=== PATIENT | female | born 1960 | race Caucasian/White ===

== ENCOUNTER 2020-05-11 09:33 | Outpatient (REF) | payer OTHER, SELFPAY ==
[2020-05-11 10:28] LABS: MANUAL DIFF FLAG NO
[2020-05-11 10:44] LABS: Basophils Percent Auto 0.2 % (0-2); Eosinophils Absolute Auto 0.1 X10*3/uL (0.0-0.4); Eosinophils Percent Auto 1.6 % (0-4); Hematocrit 43.6 % (37-47); Hemoglobin 14.3 g/dl (12.0-16.0); Imm Gran Abs Auto 0.01 X10*3/uL (0.00-0.03); Imm Gran Pct Auto 0.2 % (0.0-0.4); Lymphocytes Absolute Auto 1.3 X10*3/uL (1.2-4.9); Lymphocytes Percent Auto 29.6 % (20-40); Mean Corpuscular HGB Conc 32.8 g/dl (31.0-35.0); Mean Corpuscular Hemoglobin 29.8 pg (27.0-33.0); Mean Corpuscular Volume 90.8 fL (80-98); Mean Platelet Volume 10.3 fL (9.4-12.3); Monocytes Absolute Auto 0.3 X10*3/uL (0.1-1.2); Monocytes Percent Auto 7.7 % (2-11); Neutrophils Absolute Auto 2.6 X10*3/uL (2.0-8.3); Neutrophils Percent Auto 60.7 % (45-73); Platelet Count 207 X10*3/uL (160-400); Red Cell Distribution Width 12.6 % (11.0-16.0); White Blood Count 4.3 X10*3/uL (4.8-10.8)
[2020-05-11 10:57] LABS: Glucose Urine UA NEG (NEG); Leukocyte Esterase Urine TRACE (NEG); Nitrite Urine NEG (NEG); PH 5.5 (5.0-8.0); Specific Gravity - Urine 1.025 (1.005-1.025); Urine Blood NEG (NEG); Urine Ketones NEG (NEG); Urine Protein NEG (NEG-TRACE)
[2020-05-11 11:00] LABS: Appearance Urine HAZY; Color Urine YELLOW
[2020-05-11 11:26] LABS: TSH reflex Free T4 0.62 mIU/mL (0.32-4.0)
[2020-05-11 11:28] LABS: Alanine Aminotransferase 33 U/L (0-31); Albumin Level 4.2 g/dL (3.5-5.0); Alkaline Phosphatase 84 U/L (39-117); Anion Gap 11 (12-20); Aspartate Amino Transferase 30 U/L (5-31); Bilirubin Total 1.5 mg/dL (0.0-1.0); Blood Urea Nitrogen 19 mg/dL (9-16); Calcium 9.5 mg/dL (8.4-10.2); Carbon Dioxide 28 mmol/L (22-29); Chloride 105 mmol/L (96-108); Cholesterol 218 mg/dL; Estimated Glomerular Filt Rate > 60; Glucose Random 98 mg/dL (60-115); HDL Cholesterol 70 mg/dL; LDL Cholesterol Calculated 128 mg/dl; Potassium 4.3 mmol/l (3.3-5.1); Sodium 140 mmol/L (135-145); Triglycerides 100 mg/dL
[2020-05-11 11:34] LABS: Bacteria Urine TRACE /LPF; Mucus Urine 1+ /LPF; RBC Urine 0 /HPF (0); Squamous Epithelial Cell Urine 1+ /LPF; WBC Urine 0-2 /HPF (0-4)
== END 2020-05-11 09:34 | disposition home or self-care (01) ==
LOC: HO.LAB 09:33
PROVIDERS: PCP Internal Medicine; Visit Provider Internal Medicine
DX: G71.11 Myotonic muscular dystrophy (principal); N39.0 Urinary tract infection, site not specified; E01.0 Iodine-deficiency related diffuse (endemic) goiter
CPT/HCPCS: 36415; 80053; 80061; 81001; 81003; 84443; 85025; 87086

== ENCOUNTER 2024-09-21 10:09 | Outpatient (AMB) | payer MEDICARE, OTHER, SELFPAY ==
--- NOTE | 2024-09-21 10:20 | MHC.OFFVIS ---
Vital Signs 09/21/24 10:22 09/21/24 10:40 Height 5 ft 2.25 in Weight 168 lb 10.458 oz BMI 30.6 BP 76/40 L 100/52 L Blood Pressure Location Rt brachial Rt brachial Position Sitting Standing Pulse 51 Pulse Source Pulse Oximeter Pulse Oximetry (%) 97 Oxygen Delivery Method Room Air Intake Visit Reasons: COPD Sushi Chef Required: No Allergies adhesive Allergy (Mild, Verified 09/21/24 12:06) rash NARCOTICS Allergy (Intermediate, Uncoded 09/21/24 12:06) RASH narcotcis Allergy (Unknown, Uncoded 09/21/24 12:06) Rash NARCOTCS Allergy (Unknown, Uncoded 09/21/24 12:06) Unknown HPI Comments Details: The patient is here for pulmonary evaluation. 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 She was seen by a local shaker repairer for some time. She presents for further evaluation of worsening dyspnea. She has been progressively more dyspneic. [id number] severity. She was placed on Trelegy although she is seems only a slight improvement with the medication. Other family members feel like it helped more than that patient states. She has not had any recent pulmonary function studies. In regards her myotonic dystrophy there was some suggestion of some progression based on her last evaluation although she will be soon being re-evaluated there. She has not had pulmonary function studies which will request at this time also with maximum inspiratory and expiratory pressures. During the visit we did go for brief walking oximetry and the patient maintain a pulse ox of 94% during the ambulation in the heart rate was in the 80s. However the patient was initially nodule is in a little dizzy so therefore initially when we checked the blood pressure was 76 systolic then afterwards we checked it again was about 100 systolic. And the patient was going to go for an EKG and blood work because she had an irregular heart rhythm. Although when she was standing making her appointment she again felt woozy and nauseous and therefore we rechecked the blood pressure was systolic in the low 80s so therefore we did call her primary care doctor and everybody was in agreement for the patient to go to the ER for further evaluation. I do not have her most recent echocardiogram that she had a prior traumatic cardiology although she does state that she had a new medication, metoprolol added to her regimen. [facility] Medical History (Updated 09/21/24 @ 22:14 by Jermaine Payne MD) NOA on CPAP Neuromuscular disease Cardiomyopathy Dyspnea Social History Alcohol intake: current Alcohol intake frequency: holidays/special occasions only Patient Tobacco Use Status: Former Tobacco user Smoked in Last 30 Days: No Advance Directives: No Advance Directives Information Provided: Yes Review of Systems Const Denies chills, Denies daytime sleepiness, Denies fever(s), Denies poor appetite, Denies snoring, Denies stops breathing during sleep and Denies weakness Eyes Denies loss of vision ENT Reports dizziness and Denies hearing loss Card Denies chest pain, Denies irregular heart rhythm, Denies claudication, Denies leg edema, Denies lightheadedness, Denies palpitations, Reports dyspnea on exertion and Denies orthopnea Resp Denies cough, Denies excessive phlegm production, Reports dyspnea on exertion, Denies snoring and Denies wheezing GI Denies abdominal pain, Denies hematochezia, Denies change in bowel habits, Reports nausea and Denies vomiting Denies urinary frequency and Denies dysuria Musc Reports myalgias, Denies arthralgias, Denies muscle weakness, Denies numbness and Denies other Skin/Breast Denies nail changes and Denies rash Neuro Denies Abnormal speech present, Reports dizziness, Denies loss of vision, Denies memory loss, Denies numbness and Denies weakness Psych Denies depression and Denies memory loss Endo Denies palpitations Riely/Lymph Denies easy bruising Aller/Immun Denies wheezing Physical Exam Vital Signs: Last Vital Signs Pulse 51 09/21/24 10:22 BP 100/52 L 09/21/24 10:40 Pulse Ox 97 09/21/24 10:22 Oxygen Delivery Method Room Air 09/21/24 10:22 BMI result Body Mass Index 30.6 Const General: comfortable HEENT Head: Yes normocephalic Neck Neck: Yes supple Chest Chest palpation & inspection: normal inspection of the chest Resp Effort & Inspection: normal respiratory effort Auscultation: clear to auscultation bilaterally Cardio Heart sounds: S1 normal heart sound present and S2 normal heart sound present GI Palpation (GI): Soft to palpation Skin General skin exam: no rashes or lesions noted Neuro Speech: No Abnormal speech present Extrem General: Yes no clubbing, cyanosis or edema Results Reviewed Results Reviewed: personally reviewed CT chest 2019 from [place] with goiter noted, increased cardiac size Assessment & Plan Assessment & Plan (1) Myotonic dystrophy: Code(s): G71.11 - Myotonic muscular dystrophy Category: Medical (2) Cardiomyopathy: Code(s): I42.9 - Cardiomyopathy, unspecified Category: Medical Qualifiers: Cardiomyopathy type: unspecified Qualified Code(s): I42.9 - Cardiomyopathy, unspecified (3) Low blood pressure: Code(s): I95.9 - Hypotension, unspecified Category: Medical Qualifiers: Hypotension type: unspecified hypotension type Qualified Code(s): I95.9 - Hypotension, unspecified (4) Neuromuscular disease: Code(s): G70.9 - Myoneural disorder, unspecified Category: Medical (5) Dyspnea: Code(s): R06.00 - Dyspnea, unspecified Category: Medical Qualifiers: Dyspnea type: dyspnea on exertion Qualified Code(s): R06.09 - Other forms of dyspnea (6) NOA on CPAP: Code(s): G47.33 - Obstructive sleep apnea (adult) (pediatric) Category: Medical Plan Will transfer to the ED due to symptomatic hypotension Continue Trelegy PFTs with max inspiratory and expiratory pressures. Need to make sure that the goiter is not limiting or causing any dunamic obstruction continue PAP therapy, will bring it in to the next visit F/U with Cardiology, will need to review her last ECHO to assess cardiac fuction F/U 6-8 weeks Orders: Orders ECG 12 lead EKG Today G70.9 - Myoneural disorder, unspecified, I42.9 - Cardiomyopathy, unspecified, J44.9 - Chronic obstructive pulmonary disease, unspecified, R06.00 - Dyspnea, unspecified Venous Blood Gas Today G70.9 - Myoneural disorder, unspecified, I42.9 - Cardiomyopathy, unspecified, R06.00 - Dyspnea, unspecified Basic Metabolic Panel Today G70.9 - Myoneural disorder, unspecified, I42.9 - Cardiomyopathy, unspecified, R06.00 - Dyspnea, unspecified B Type Natriuretic Peptide Today G70.9 - Myoneural disorder, unspecified, I42.9 - Cardiomyopathy, unspecified, R06.00 - Dyspnea, unspecified Liver Panel Today G70.9 - Myoneural disorder, unspecified, I42.9 - Cardiomyopathy, unspecified, R06.00 - Dyspnea, unspecified PFT pulmonary function test Today G70.9 - Myoneural disorder, unspecified Troponin-I High Sensitivity Today G70.9 - Myoneural disorder, unspecified, I42.9 - Cardiomyopathy, unspecified, R06.00 - Dyspnea, unspecified Complete Blood Count Auto Diff Today G70.9 - Myoneural disorder, unspecified, I42.9 - Cardiomyopathy, unspecified, R06.00 - Dyspnea, unspecified Coding Level of Care Code New Pt Level 5 (06166) Diagnoses Myotonic dystrophy G71.11 Cardiomyopathy, unspecified type I42.9 Cardiomyopathy type: unspecified Hypotension, unspecified hypotension type I95.9 Hypotension type: unspecified hypotension type Neuromuscular disease G70.9 Dyspnea on exertion R06.09 Dyspnea type: dyspnea on exertion NOA on CPAP G47.33 Time Spent (min) 60
[2024-09-21 10:22] VITALS: BP 76/40; PULSE 51; O2SAT 97; BMI 30.6
[2024-09-21 10:40] VITALS: BP 100/52
--- OUTSIDE RECORDS SUMMARY | 2024-09-21 11:48 | XMS_ITS | Clinical Summary ---
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 In [employer] Name Role Phone Unknown, Primary Care Provider Unavailabl e Social History Tobacco Use Types Packs/Day Years Used Date Smoking Tobacco: Never Assessed Sex and Gender Information Value Date Recorded Sex Assigned at Not on file Gender Identity Not on file Sexual Orientation Not on file Job Start Date Occupation Industry Not on file Not on file Not on file Plan of Treatment Health Maintenance Due Date Last Done Comments Hepatitis C Screening 1960 COVID-19 Vaccine (#1) 05/21/1959 Depression Screening 1970 Preventative Health Evaluation 1976 DTap / Tdap / Td (1 - Tdap) 1977 Cervical Cancer Screening (Pap Smear) 11/20/1979 Colon Cancer Screening (Colonoscopy) 11/20/2003 Breast Cancer Screening (Mammogram) 2008 Shingrix-Zoster Vaccine (1 o f 2) 2008 03/05/2020 Fall Risk Assessment 11/20/2023 Osteoporosis Screening (DEXA Scan) 11/20/2023 Pneumococcal Vaccine (1 of 1 - PCV) 11/20/2023 Influenza Vaccine (#1) 2024 0, 01/14/2019, 04/15/2018 RSV Adult > 60+ Yrs or (1 - 1-dose 75+ series) 2033 Hepatitis B Vaccines Aged Out No long er eligible based on patient's age to complete this topic Pneumococcal Vaccine Aged Out No long er eligible based on patient's age to complete this topic RSV Ped < 20 months Aged Out No longe r eligible based on patient's age to complete this topic Care Teams Drawer In [employer] Relationship Specialty Start Date End Date Unknown, PCP - General 03/26/22
--- OUTSIDE RECORDS SUMMARY | 2024-09-21 11:48 | XMS_ITS | Clinical Summary ---
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 10/16/2016 Active methenamine hippurate (HIPREX) 1 gram tablet Take 1 g by mouth daily 05/17/2019 Active fluticasone-ume clidinium-vilan terol (TRELEGY ELLIPTA) 100-62.5-25 mcg inhaler Inhale into the lungs. Active CRANBERRY ORAL Take by mouth. Active cholecalciferol (VITAMIN D-3) 1,250 mcg (50,000 unit) capsule Take by mouth. Active UNABLE TO FIND Take by mouth. Med Name: Calcium Carb-Choleca lciferol (CALCIUM 1000 + D OR) Active MULTIVITAMIN ORAL Take by mouth. Active magnesium oxide (MAG-OX) 400 mg magnesium tablet Take 1 tablet (400 mg total) by mouth 1 (one) time each day. Active metoprolol succinate (TOPROL-XL) 25 mg 24 hr tablet Take 0.5 tablets (12.5 mg total) by mouth 1 (one) time each day. Do not crush or chew. 45 each 1 06/17/2024 6 Active rosuvastatin (CRESTOR) 5 mg tablet Take 1 tablet (5 mg total) by mouth 1 (one) time each day. Active rosuvastatin (CRESTOR) 40 mg tablet Take 1 tablet (40 mg total) by mouth 1 (one) time each day. 90 each 08/01/2024 6 Active rosuvastatin (CRESTOR) 40 mg tablet Take 1 tablet (40 mg total) by mouth 1 (one) time each day. 90 each 3 08/01/2024 6 Active furosemide (LASIX) 20 mg tablet Take 1 tablet (20 mg total) by mouth 1 (one) time each day. 30 each 08/01/2024 6 Active sacubitriL-vals tahir (ENTRESTO) 24-26 mg per tablet Take 1 tablet by mouth 2 (two) times a day. 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 No chest pain or EKG changes consistent with ischemia.Nuclear imaging revealed no significant perfusion defects.There is a normal TID ratio.Gated SPECT imaging was performed and revealed an LVEF 42 % with stress and 46% at rest. Study is described as abnormal on the basis of dilated LV with reduced left ventricular systolic function; available data does not suggest significant CAD. TTE 06/28/24: Left ventricle cavity size is normal. Left ventricular systolic function is moderately decreased with an ejection fraction of 35-40%.Large inferolateral LV regional wall motion abnormality.Left ventricle wall thickness is normal.Right ventricle cavity is normal. Right ventricular systolic function is normal. Ct Angio 07/19/24: Multivessel coronary artery disease which appears to be nonobstructive. Please note that the PDA could not be evaluated due to motion and poor luminal opacification. Coronary circulation is right dominant. No aneurysm or dissection of the proximal ascending aorta. Calcium Score 07/19/24: Left Main: 0.LAD: 127.11.LCX: 92.45. RCA: 20.66.Total coronary calcium score is 240.22. Assessment & Plan (08/01/2024 2:59 PM EST): Non obstructive cad by heart cta July 2024. Continue statin and increase Rosuvastatin to 40 mg. CHF (congestive heart failur e), NYHA class I (CMS/HCC V24, CMS/HCC V28) 06/15/2024 Overview (06/15/2024): Echo 03/2024 LVEF 30-35% .Global hypokenensis inferior lateral akineasis compared to an echo in 2020 the LVEF has declined. Mild LVH. Chemical Nuclear Stress 05/2024 : Abnormal stress test. No changes consist with ischemia normal TIE ratio. No perfusion defects. LVEF 42%With stress and 46% at rest. Available data does not suggest significant cad. Assessment & Plan (08/01/2024 3:08 PM EST): Pt has an lvef of 35 -40% by echo 2024. Non obstructive cad by heart cta 2024. Pt currently on toprol. Will add Entresto and lasix. Will see back in 6 weeks to see if she is tolerating the medications. 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 Assessment & Plan (06/15/2024 3:38 PM EST): Pt with new cardio LVEF 30-35% by outside record from [place]. Nuclear stress without signs of ischemia . All the record not available as they where performed in outside institutions. Pt had ct scan of chest 12/2020 demonstrates coronary vascular calcifications. Pt has been on Lipitor 10 per our records. no previous lipid testing avail in our records Given the above we will repeat 2d echo and coronary cta. Follow up 4 weeks. If we verify decreased EF and significant coronary disease it will help to guide medical therapy with BB to help with CHF. We will start to 25mg toprol as there is some limitations due to her blood pressures. Mixed hyperlipidemia 06/15/2024 Assessment & Plan (08/01/2024 12:37 PM EST): Continue rosuvastatin . Assessment & Plan (06/15/2024 3:12 PM EST): Calcium score prior to next. Continue rosuvastatin . NOA (obstructive sleep apnea) 04/06/2024 SOB (shortness of breath) 04/06/2024 Left bundle branch block (LBBB) 02/08/2019 Atrial fibrillation (CMS/HCC V24, CMS/HCC V28) 0 02/15/2018 Overview (06/15/2024): sees cardio - dr. Loya ABLATION 2022 Assessment & Plan (08/01/2024 3:18 PM EST): Currently in sinus rhythm. Not on Anticoagulation . Obtain outside records. Refer to ep to see if need for anticoagulation Assessment & Plan (06/15/2024 3:04 PM EST): Currently in sinus rhythm. Anticoagulation dc my of EP in 2022. Obtain 2D Echo, Calcium Score, and lipids prior to next. 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 Encounters Date Type Department Care Team Description 08/01/2024 2:15 PM EST Office Visit [facility] [address] [facility] [address] [place] [address] Raleigh Tamez MD Atrial fibrillation, unspecified type (CMS/HCC V24, CMS/HCC V28) (Primary Dx); Congestive heart failure, NYHA class 1, unspecified congestive heart failure type (CMS/HCC V24, CMS/HCC V28); Mixed hyperlipidemia; Coronary artery disease involving capitan grande coronary artery of capitan grande heart with angina pectoris (CMS/HCC V24) 07/19/2024 10:44 AM EST - 07/19/2024 11:59 PM EST Hospital Encounter [facility] CT Department [address] [place] [address] Congestive heart failure, NYHA class 1, unspecified congestive heart failure type (CMS/HCC V24, CMS/HCC V28); Stable angina ([facility] V24) Discharge Disposition: Home or Self Care 07/19/2024 10:36 AM EST - 07/19/2024 11:59 PM EST Hospital Encounter [facility] Department [address] [place] [address] Congestive heart failure, NYHA class 1, unspecified congestive heart failure type ([facility] V24, CMS/[facility] V28) Discharge Disposition: Home or Self Care 06/28/2024 9:30 AM EST Ancillary Procedure [facility] [address] [address] Congestive heart failure, NYHA class 1, unspecified congestive heart failure type (CMS/HCC V24, CMS/HCC V28) from Last 3 Months Medical History Medical History Date Comments COPD (chronic obstructive pulmonary disease) ([facility] V24, CMS/[facility] V28) History of cochlear implant Muscular dystrophy ([facility] V24, CMS/[facility] V28) Acid reflux Social History Tobacco Use Types Packs/Day Years Used Date Smoking Tobacco: Former Smokeless Tobacco: Never Tobacco Cessation:Counseling Given: Not Answered Alcohol Use Standard Drinks/Week Comments Yes 0 (1 standard drink = 0.6 oz pur e alcohol) Comments Unknown Sex and Gender Information Value Date Recorded Sex Assigned at Female 07/19/2024 10:39 AM EST Legal Sex Female 3:38 PM EST Gender Identity Female 07/19/2024 10:39 AM EST Sexual Orientation Straight 07/19/2024 10 :39 AM EST Obstetrics History Last Filed Vital Signs Vital Sign Reading Time Taken Comments Blood Pressure 106/73 08/01/2024 2:50 PM EST Pulse 58 08/01/2024 2:50 PM EST Temperature 36.7 ??C (98.1 ??F) 07/25/2023 5:19 AM ES T Respiratory Rate 18 07/25/2023 5:19 AM EST Oxygen Saturation 97% 07/25/2023 5:39 AM EST Inhaled Oxygen Concentration - - Weight 74.8 kg (165 lb) 08/01/2024 2:50 PM EST Height 162.6 cm (5' 4 ) 08/01/2024 2:50 PM EST Body Mass Index 28.32 08/01/2024 2:50 PM EST Plan of Treatment Upcoming Encounters Date Type Department Care Team (Late st Contact Info) Description 10/25/2024 1:40 PM EDT Office Visit [facility] [address] [place] [phone] Gracy Lira PA [address] [place] [address] Health Maintenance Due Date Last Done Comments Breast Cancer Screening 1960 Pneumococcal Vaccine: 50+ Years (1 of 2 - PCV) 1977 Pneumococcal Vaccine: Pediatrics (0 to 5 Years) and At-Risk Patients (6 to 64 Years) (1 of 2 - PCV) 1977 Cervical Cancer Screening: Pap Smear 11/20/1979 Cholesterol Screening (Lipid Panel) 04/30/2022 Colorectal Cancer Screening: Colonoscopy 04/30/2022 Depression Screening 04/30/2022 Hepatitis C Screening 04/30/2022 Medicare Annual Wellness Visit 04/30/2022 Social Influencers of Health Screening 04/30/2022 Falls Risk Assessment 11/20/2023 COVID-19 Vaccine ( season) 2024 04/09/2021, 09/06/2020, 08/16/2020 Hypertension/CHF/CAD Annual BMP Blood Test 04/26/2025 04/26/2024, 08/23/2021 Osteoporosis Screening (Bone Density Screening) 01/01/2030 01/02/2020 DTaP,Tdap,and Td Vaccines (2 - Td or Tdap) 06/21/2032 06/21/2022 Zoster Vaccines Completed 03/05/2020, 01/14/2019 RSV Immunization Adult Patients Completed 04/14/2023 Influenza Vaccine Completed 03/05/2024, , 04/09/2021, Additional history exists HIB Vaccines Aged Out No longer eligi ble based on patient's age to complete this topic HPV Vaccines Aged Out No longer eligi ble based on patient's age to complete this topic Hepatitis A Vaccines Aged Out No long er eligible based on patient's age to complete this topic Hepatitis B Vaccines Aged Out No long er eligible based on patient's age to complete this topic IPV Vaccines Aged Out No longer eligi ble based on patient's age to complete this topic MMR Vaccines Aged Out No longer eligi ble based on patient's age to complete this topic Meningococcal ACWY Vaccine Aged Out N o longer eligible based on patient's age to complete this topic Meningococcal B Vaccine Aged Out No l onger eligible based on patient's age to complete this topic RSV Immunization Patients Under 20 months Aged Out No longer eligible based on patient's age to complete this topic Varicella Vaccines Aged Out No longer eligible based on patient's age to complete this topic Procedures Procedure Name Priority Date/Time Associated Diagnosis Comments CT HEART CALCIUM SCORING WO CONTRAST Routine 07/19/2024 12:03 PM EST Congestive heart failure, NYHA class 1, unspecified congestive heart failure type (CMS/HCC V24, CMS/HCC V28) CT ANGIO HEART W 3D IMAGING/FUNCTION Routine 07/19/2024 11:58 AM EST Congestive heart failure, NYHA class 1, unspecified congestive heart failure type (CMS/HCC V24, CMS/HCC V28) Stable angina (CMS/HCC V24) TRANSTHORACIC ECHOCARDIOGRAM (TTE) COMPLETE Routine 06/28/2024 9:39 AM EST Congestive heart failure, NYHA class 1, unspecified congestive heart failure type (CMS/HCC V24, CMS/HCC V28) BASIC METABOLIC PANEL Routine 04/26/2024 12:58 PM EST Cardiomyopathy, unspecified type (CMS/HCC V24, CMS/HCC V28) SOB (shortness of breath) Other fatigue TERRY DEXA AXIAL SKELETON Routine 01/02/2020 9:45 AM EDT Encounter for screening for osteoporosis from Last 3 Months or Most Recently Relevant to Health Maintenance Results * CT Heart Calcium Scoring wo Contrast (07/19/2024 12:03 PM EST) Anatomical Region Laterality Modality Body Computed Tomogra phy 07/19/2024 12:0 6 PM EST Impressions 07/19/2024 6:00 PM EST Impression: Total coronary calcium score is 240.22. According to the Multi-Ethnic Study of Atherosclerosis (SOLIZ), the score places the patient in the 83 percentile for subjects of ??the same age, race/ethnicity who are free of clinical cardiovascular disease and treated diabetes. CAC-RADS Score: ??3 Treatment Guidelines*: Coronary Artery Calcium Reporting and Data System (CAD-RADS) CAC-RADS 0: CAC Score 0. Risk: Very low. Treatment recommendation: statin generally not recommended. CAC-RADS 1: CAC Score 1-99. Risk: mildly increased. Treatment recommendation: moderate intensity statin. CAC-RADS 2: CAC Score 100-299. Risk: moderately increased. Treatment recommendation: moderate to high intensity statin + ASA 81mg. CAC-RADS 3: CAC Score >300. Risk: moderately to severely increased. Treatment recommendation: high intensity statin + ASA 81mg. Note: *Expert consensus document from SCCT, ACR and NASCI endorsed by the [employer]. *ASCVD risk using the 10-year risk Pooled Cohort Equations. Reference: https://doi.org/10.1016/j.fbox3036.03.008 -------- FINAL REPORT -------- Dictated By: Jenn Cramer Dictated Date: 07/19/2024 12:06 ET Assigned Physician: Jenn Cramer Reviewed and Electronically Signed By: Jenn Cramer Signed Date: 07/19/2024 18:00 ET Workstation ID: [id number] Transcribed By: Self Edit Transcribed Date: 07/19/2024 12:06 ET Narrative 07/19/2024 6:[address] HEART CALCIUM SCORING WO CONTRAST Diagnosis: cad Technique: 256 slice prospective ECG gated CT scan of the heart was acquired without contrast for coronary artery calcium scoring Findings: Left Main: 0. LAD: 127.11. LCX: 92.45. RCA: 20.66. There is no cardiomegaly or pericardial effusion. No aneurysm of the proximal ascending aorta. ??No pulmonary infiltrates. Procedure Note Jenn Cramer MD - 07/19/2024 CT HEART CALCIUM SCORING WO CONTRAST Diagnosis: cad Technique: 256 slice prospective ECG gated CT scan of the heart was acquired withoutcontrast for coronary artery calcium scoring Findings: Left Main: 0. LAD: 127.11. LCX: 92.45. RCA: 20.66. There is no cardiomegaly or pericardial effusion. No aneurysm of theproximal ascending aorta. No pulmonary infiltrates. IMPRESSION: Impression: Total coronary calcium score is 240.22. According to the Multi-Ethnic Study of Atherosclerosis (SOLIZ), the scoreplaces the patient in the 83 percentile for subjects of the same age,race/ethnicity who are free of clinical cardiovascular disease and treateddiabetes. CAC-RADS Score: 3 Treatment Guidelines*: Coronary Artery Calcium Reporting and Data System (CAD-RADS) CAC-RADS 0: CAC Score 0. Risk: Very low. Treatment recommendation: statingenerally not recommended. CAC-RADS 1: CAC Score 1-99. Risk: mildly increased. Treatmentrecommendation: moderate intensity statin. CAC-RADS 2: CAC Score 100-299. Risk: moderately increased. Treatmentrecommendation: moderate to high intensity statin + ASA 81mg. CAC-RADS 3: CAC Score >300. Risk: moderately to severely increased.Treatment recommendation: high intensity statin + ASA 81mg. Note: *Expert consensus document from SCCT, ACR and NASCI endorsed by theAmerican College of Cardiology. *ASCVD risk using the 10-year risk Pooled Cohort Equations. Reference: https://doi.org/10.1016/j.icws4475.03.008 -------- FINAL REPORT -------- Dictated By: Jenn Cramer Dictated Date: 07/19/2024 12:06 ET Assigned Physician: Jenn Cramer Reviewed and Electronically Signed By: Jenn Cramer Signed Date: 07/19/2024 18:00 ET Workstation ID: [id number] Transcribed By: Self Edit Transcribed Date: 07/19/2024 12:06 ET us Raleigh Tamez MD IMG CT PROCEDURES Final Resu lt * CT Angio Heart w 3D Imaging/Function (07/19/2024 11:58 AM EST) Anatomical Region Laterality Modality Body Computed Tomogra phy 07/19/2024 1:50 PM EST Impressions 07/19/2024 1:55 PM EST Impression: 1. Multivessel coronary artery disease which appears to be nonobstructive. ??Please note that the PDA could not be evaluated due to motion and poor luminal opacification. 2. Coronary circulation is right dominant. 3. No aneurysm or dissection of the proximal ascending aorta. -------- FINAL REPORT -------- Dictated By: Sukhwinder Earl Dictated Date: 07/19/2024 13:50 ET Assigned Physician: Sukhwinder Earl Reviewed and Electronically Signed By: Sukhwinder Earl Signed Date: 07/19/2024 13:55 ET Workstation ID: [id number] Transcribed By: Self Edit Transcribed Date: 07/19/2024 13:50 ET Narrative 07/19/2024 1:55 PM EST Diagnosis: Recent history of atypical precordial chest pain. CARDIAC CT ANGIOGRAPHY Technique: [address] axial CT angiography the heart was acquired with 100 Kv technique following IV administration of 50 CC's of Isovue 370. The Kv technique was chosen based on the patient's body habitus. Images were created with iterative model reconstruction (IMR) and reviewed in 2D, 3-D, curved MPR and MIP. If indicated, the patient may have received .4 mg of sublingual nitroglycerin and IV beta marco. Findings: The study quality: Diagnostic. Coronary circulation is right dominant. Left main coronary artery: The left main coronary artery is of average length ??and large caliber. No disease in the left main. The left main bifurcates in to the LAD and left circumflex coronary artery. Left anterior descending coronary artery: The LAD is a long artery of moderate caliber. It gives origin to diagonal and septal transport operations inspector branches. Focal calcified and noncalcified eccentric plaques at the origin and proximal segment resulting in approximately 10-20% stenosis. Left circumflex coronary artery: The left circumflex is a moderate caliber artery of average length. It gives origin to obtuse marginal branches. Calcified eccentric plaques in the proximal segment resulting in approximately 20% stenosis. Right coronary artery: The RCA is a long artery of moderate caliber. It gives origin to the conus artery, acute marginal branches, ??the posterior descending artery and posterolateral ventricular branch. Scattered multifocal calcified eccentric plaques in the proximal and mid segment resulting in approximately 10-20% stenosis. ??The PDA could not be evaluated due to small caliber and poor luminal opacification. No cardiomegaly. ?? No hypertrophy of the left ventricle. No aneurysmal dilatation/dissection of the proximal ascending aorta. No pericardial effusion. Adjacent lungs are free of infiltrates. Procedure Note Sukhwinder Blank MD - 07/19/2024 Diagnosis: Recent history of atypical precordial chest pain. CARDIAC CT ANGIOGRAPHY Technique: 256 slice ECG gated axial CT angiography the heart was acquired with 100Kv technique following IV administration of 50 CC's of Isovue 370. The Kv technique was chosen based on the patient's body habitus. Images were created with iterative model reconstruction (IMR) and reviewedin 2D, 3-D, curved MPR and MIP. If indicated, the patient may have received .4 mg of sublingualnitroglycerin and IV beta marco. Findings: The study quality: Diagnostic. Coronary circulation is right dominant. Left main coronary artery: The left main coronary artery is of average length and large caliber. No disease in the left main. The left main bifurcates in to the LAD and left circumflex coronaryartery. Left anterior descending coronary artery: The LAD is a long artery of moderate caliber. It gives origin to diagonaland septal transport operations inspector branches. Focal calcified and noncalcified eccentric plaques at the origin andproximal segment resulting in approximately 10-20% stenosis. Left circumflex coronary artery: The left circumflex is a moderate caliber artery of average length. Itgives origin to obtuse marginal branches. Calcified eccentric plaques in the proximal segment resulting inapproximately 20% stenosis. Right coronary artery: The RCA is a long artery of moderate caliber. It gives origin to the conusartery, acute marginal branches, the posterior descending artery andposterolateral ventricular branch. Scattered multifocal calcified eccentric plaques in the proximal and midsegment resulting in approximately 10-20% stenosis. The PDA could not beevaluated due to small caliber and poor luminal opacification. No cardiomegaly. No hypertrophy of the left ventricle. No aneurysmal dilatation/dissection of the proximal ascending aorta. No pericardial effusion. Adjacent lungs are free of infiltrates. IMPRESSION: Impression: 1. Multivessel coronary artery disease which appears to be nonobstructive.Please note that the PDA could not be evaluated due to motion and poorluminal opacification. 2. Coronary circulation is right dominant. 3. No aneurysm or dissection of the proximal ascending aorta. -------- FINAL REPORT -------- Dictated By: Sukhwinder Earl Dictated Date: 07/19/2024 13:50 ET Assigned Physician: Sukhwinder Earl Reviewed and Electronically Signed By: Sukhwinder Earl Signed Date: 07/19/2024 13:55 ET Workstation ID: [id number] Transcribed By: Self Edit Transcribed Date: 07/19/2024 13:50 ET us Raleigh Tamez MD IMG CT PROCEDURES Final Resu lt * (ABNORMAL) TRANSTHORACIC ECHOCARDIOGRAM (TTE) COMPLETE (06/28/2024 9:39 AM EST) LV EDV (A2C) 110 mL CV PACS LV EDV (A4C) 131 mL CV PACS LV Diastolic Volume (BP) 130(A) 46 - 106 mL CV PACS LV ESV (A2C) 76 mL CV PACS LV ESV (A4C) 90 mL CV PACS LV Systolic Volume (BP) 86(A) 14 - 42 mL CV PACS IVSD 0.9 0.6 - 0.9 cm CV PACS LVIDD 6.3(A) 3.8 - 5.2 cm CV PACS LVIDS 5.4(A) 2.2 - 3.5 cm CV PACS LVOT Diameter 2.2 cm CV PACS LVOT Mean Grad 1 mmHg CV PACS LVOT Peak VTI 12.5 cm CV PACS LVOT Mean Aureliano 0.5 m/s CV PACS LVOT Peak Aureliano 0.7 m/s CV PACS LVOT Peak Gradient 2 mmHg CV PACS LVPWD 0.7 0.6 - 0.9 cm CV PACS MV E' Tissue Velocity Lateral 4 cm/s CV PACS MV E' Tissue Velocity Septal 7 cm/s CV PACS Ejection Fraction (A2C) 31 % CV PACS Ejection Fraction (A4C) 31 % CV PACS Ejection Fraction (BP) 34 % CV PACS LVOT Area 3.8 cm2 CV PACS LVOT Stroke Volume 47 mL CV PACS Left Atrium Minor Norman 5.6 cm CV PACS Left Atrium Major Norman 5.1 cm CV PACS LA Area Sys (A2C) 23 cm2 CV PACS LA Area Sys (A4C) 20 cm2 CV PACS LA Volume (BP) 76 mL CV PACS Aortic Valve Cusp Separation mMode 1.8 cm CV PACS AV Mean Gradient 3 mmHg CV PACS Ao VTI 16.2 cm CV PACS AV Peak Aureliano 1.0 m/s CV PACS AV Peak Aureliano 1.0 m/s CV PACS AV Peak Gradient 4 mmHg CV PACS AV Area Continuity Equation 2.9 cm2 CV PACS AV Area Peak Velocity 2.6 cm2 CV PACS Aortic Root M-mode 26.00 mm CV PACS Ascending Aorta 3.6 cm CV PACS MR PISA Max Velocity 2.4 m/s CV PACS MR Peak Gradient 24 mmHg CV PACS Mitral Valve Max Velocity 0.5 m/s CV PACS MV Peak Gradient 1 mmHg CV PACS MV Deceleration Ochiltree 2.5 m/s2 CV PACS E Wave Deceleration Time 160 119 - 242 ms CV PACS MV PHT 47 ms CV PACS MV Peak A Aureliano 0.52 m/s CV PACS MV Peak E Aureliano 0.40 m/s CV PACS MV Mean Gradient 1 mmHg CV PACS MV VTI 14.2 cm CV PACS MV Area PHT 4.7 cm2 CV PACS MV Area Continuity Equation 3.3 cm2 CV PACS FL End Max Velocity 0.9 m/s CV PACS PA End Diastolic Pressure 3 mmHg CV PACS PV Peak Velocity 0.7 m/s CV PACS PV Peak Gradient 2 mmHg CV PACS Est. RA Pressure 3 mmHg CV PACS TR Peak Velocity 1.81 m/s CV PACS TR Peak Gradient 13 mmHg CV PACS Right Ventricular Peak Systolic Pressure 16 mmHg CV PACS LV ESV Index (A4C) 50 mL/m2 CV PACS LV EDV Index (A4C) 73 mL/m2 CV PACS E/E' Ratio Septal 6 CV PACS E/E' Ratio Averaged 8 CV PACS LVOT Stroke Index 26 mL/m2 CV PACS Relative Wall Thickness ratio 0.22 CV PACS LVOT:AV VTI Index 0.77 CV PACS FS 14 % CV PACS LV Mass 2D 203 g CV PACS Ascending Aorta Index 2.01 cm/m2 CV PACS MV VTI:LVOT VTI ratio 1.1 CV PACS LVOT flow 190 mL/s CV PACS WILMA Index (VTI) 1.64 cm2/m2 CV PACS WILMA Index (Pk Aureliano) 1.45 cm2/m2 CV PACS LVIDD Index 3.52 cm/m2 CV PACS LVIDS Index 3.02 cm/m2 CV PACS E/A Ratio 0.8 CV PACS E/E' Ratio Lateral 10 CV PACS LV Systolic Volume Index (BP) 48 mL/m2 CV PACS LV Diastolic Volume Index (BP) 73 mL/m2 CV PACS LA Volume Index (BP) 42 mL/m2 CV PACS LV Mass Index 2D 113 g/m2 CV PACS LV EDV Index (A2C) 61 mL/m2 CV PACS LV ESV Index (A2C) 42 mL/m2 CV PACS BSA 1.82 m2 CV PACS Anatomical Region Laterality Modality Ultrasound Narrative 06/29/2024 5:23 PM EST ?Left ventricle cavity size is normal. Left ventricular systolic function is moderately decreased with an ejection fraction of 35-40%. ?Large inferolateral LV regional wall motion abnormality. ?Left ventricle wall thickness is normal. ?Right ventricle cavity is normal. Right ventricular systolic function is normal. Left Ventricle Left ventricle cavity size is normal. Wall thickness is normal. Systolic function is moderately decreased with an ejection fraction of 35-40%. Large inferolateral regional LV wall motion abnormality. There is no diastolic dysfunction. Right Ventricle Right ventricle cavity appears normal. Systolic function is normal. Left Atrium Left atrium cavity is mildly dilated. Right Atrium Right atrium cavity is normal. IVC/SVC Inferior vena cava structure is normal. Mitral Valve Mitral valve structure is normal. There is mild regurgitation. There is no significant stenosis noted. Tricuspid Valve Tricuspid valve structure is normal. There is mild regurgitation. There is no significant tricuspid valve stenosis. The RVSP is estimated at 16 mmHg. Aortic Valve The aortic valve is trileaflet. The leaflets are not thickened and exhibit normal excursion. There is no regurgitation or stenosis. Pulmonic Valve The pulmonic valve was not well visualized. No significant pulmonic valve regurgitation. No significant pulmonary valve stenosis noted. Ascending Aorta The aorta appears normal in size. Pericardium Pericardium appears normal. There is no pericardial effusion. Study Details Overall the study quality was good. us Raleigh Tamez MD CV ECHO PROCEDURES Final Res ult * Basic metabolic panel (04/26/2024 12:58 PM EST) Sodium 140 133 - 145 mmol/L LAB CHEMISTRY METHOD 04/26/2024 5:10 PM [facility] Potassium 4.4 3.5 - 5.5 mmol/L LAB CHEMISTRY METHOD 04/26/2024 5:10 PM [facility] Chloride 105 96 - 110 mmol/L LAB CHEMISTRY METHOD 04/26/2024 5:10 PM [facility] CO2 28 21 - 32 mmol/L LAB CHEMISTRY METHOD 04/26/2024 5:10 PM [facility] Anion Gap 7 3 - 11 LAB CHEMISTRY METHOD 04/26/2024 5:10 PM [facility] Glucose 70 70 - 100 mg/dL LAB CHEMISTRY METHOD 04/26/2024 5:10 PM [facility] BUN 21 5 - 25 mg/dL LAB CHEMISTRY METHOD 04/26/2024 5:10 PM [facility] Creatinine 0.80 0.50 - 1.10 mg/dL LAB CHEMISTRY METHOD 04/26/2024 5:10 PM [facility] eGFR 82 >=60 mL/min/1. 73m2 LAB CHEMISTRY METHOD 04/26/2024 5:10 PM [facility] Comment:Calculation based on the??Chronic Kidney Disease Epidemiology Collaboration (CKD-EPI) equation refit??without adjustment for race. BUN/Creatinine Ratio 26.3 LAB CHEMISTRY METHOD 04/26/2024 5:10 PM [facility] Calcium 10.1 8.5 - 10.5 mg/dL LAB CHEMISTRY METHOD 04/26/2024 5:10 PM [facility] Blood Venous blood specimen / Unknown Venipuncture / Unknown 04/26/2024 12:58 PM EST 04/26/2024 4:22 PM EST us Gracy CARLTON LAB BLOOD ORDERABLES Final Resul t [facility] [address] [place] [address], * TERRY DEXA AXIAL SKELETON (01/02/2020 9:45 AM EDT) Anatomical Region Laterality Modality Mammography 01/02/2020 8:53 AM EDT Narrative 01/02/2020 9:45 AM EDT [facility] Diagnostic Imaging Department [address] [place] [address] Patient: ??TRINIDAD EVANGELISTA ?/Age/Sex: 1960 - 59 - F Unit#: ??[id number] ? Location/Status: ??SPDIMAM/REG CLI ? Mnemonic/Ordering Site: ??MAMDEXAAX/SPMAM Ordering Physician: ??NICKY NORTH MD Terry Dexa Axial Skeleton - 01/02/20939 HISTORY: ??The patient is a 59-year-old postmenopausal female with clinical concern for metabolic bone disease. FINDINGS: ??Dual energy x-ray absorptiometry of the lumbar spine and femurs is performed. The mean bone mineral density at L1-3 is 1.084 gm/cm2 which is 93% of that of young normals and 101% of that of age matched controls. This yields a T- score of -0.7 and a Z-score of 0.1 and there is therefore no evidence of osteoporosis or osteopenia here. The mean bone mineral density of the femurs bilaterally is 0.984 gm/cm2 which is 98% of that of young normals and 106% of that of age matched controls. ??This yields a T-score of -0.2 and a Z-score of 0.4 and there is therefore no evidence of osteoporosis or osteopenia here. However, the T-score of the right femoral neck is -1.6 and that of the left femoral neck is -1.3 which is diagnostic of osteopenia. IMPRESSION: 1. Osteopenia. 2. FRAX analysis yields a 10-year probability of major osteoporotic fracture of 15.9% and a 10-year probability of hip fracture of 0.8%. Code 67141 Dictating Physician: ??ELO ADAIR MD Electronically Signed by: ??ELO ADAIR MD Dic Date/Time: ??01/02/20 0944 Sign date/Time: ??01/02/2045 Procedure Note Elo Adair MD - 05/21/2022 [facility] Diagnostic Imaging Department [address] [place] [address] Patient: BC EVANGELISTACATALINA Stapleton./Age/Sex: 1960 - 59 - F Unit#: [id number] Location/Status: SPDIMAM/REG CLI [facility] Ordering Physician: NICKY NORTH MD Terry Dexa Axial Skeleton - 01/02/20939 HISTORY: The patient is a 59-year-old postmenopausal female withclinical concern for metabolic bone disease. FINDINGS: Dual energy x-ray absorptiometry of the lumbar spine and femursis performed. The mean bone mineral density at L1-3 is 1.084 gm/cm2 which is93% of that of young normals and 101% of that of age matched controls. Thisyields a T- score of -0.7 and a Z-score of 0.1 and there is therefore no evidence of osteoporosis or osteopenia here. The mean bone mineral density of the femurs bilaterally is 0.984 gm/jl3uzuvf is 98% of that of young normals and 106% of that of age matched controls.This yields a T-score of -0.2 and a Z-score of 0.4 and there is therefore noevidence of osteoporosis or osteopenia here. However, the T-score of the rightfemoral neck is -1.6 and that of the left femoral neck is -1.3 which is diagnosticof osteopenia. IMPRESSION: 1. Osteopenia. 2. FRAX analysis yields a 10-year probability of major osteoporoticfracture of 15.9% and a 10-year probability of hip fracture of 0.8%. 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 Health Care Decision (hx) 01/28/2021 AD GANN DIRECTIVE Health Care Decision (hx) 01/28/2021 AD GANN DIRECTIVE Health Care Decision (hx) 01/28/2021 AD GANN DIRECTIVE Health Care Decision (hx) 01/28/2021 AD GANN DIRECTIVE Health Care Decision (hx) 01/28/2021 AD GANN DIRECTIVE Health Care Decision (hx) 01/28/2021 AD GANN DIRECTIVE Health Care Decision (hx) 01/28/2021 AD GANN DIRECTIVE Health Care Decision (hx) 01/28/2021 AD GANN DIRECTIVE Health Care Decision (hx) 01/26/2019 AD GANN DIRECTIVE Health Care Decision (hx) 01/26/2019 AD GANN DIRECTIVE Health Care Decision (hx) 01/26/2019 AD GANN DIRECTIVE Health Care Decision (hx) 01/26/2019 AD GANN DIRECTIVE Health Care Decision (hx) 01/26/2019 AD GANN DIRECTIVE Health Care Decision (hx) 01/26/2019 AD GANN DIRECTIVE Health Care Decision (hx) 01/26/2019 AD GANN DIRECTIVE Health Care Decision (hx) 01/26/2019 AD GANN DIRECTIVE Health Care Decision (hx) 01/26/2019 AD GANN DIRECTIVE Health Care Decision (hx) 01/26/2019 AD GANN DIRECTIVE 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
--- OUTSIDE RECORDS SUMMARY | 2024-09-21 11:48 | XMS_ITS | Data Portability ---
Author Organization [facility] Internal Medicine, Home Service Address [address] [place] [address] Assessment No assessment recorded. Plan of Treatment Reminders Order Date Submit Date Provider Last Modified By Organization Details Last Modified Time Details Appointments None recorded. Lab urinalysis , dipstick 2018 019 [email or web address] [facility] Internal Medicine, [address] [facility], [address], [place], [address], 9 11:27:33 culture, urine 2018 019 NED Not available 9 07:55:23 Referral urologist referral 2018 019 jack North MD, [address] [facility], [place], [address], 9 08:35:02 Procedures None recorded. Surgeries None recorded. Imaging None recorded. Medication Orders Cipro 250 mg tablet 2018 019 [id number], [address] [place], [address], 9 10:34:33 Lomotil 2.5 mg-0.025 mg tablet 2018 019 INTERFACE [id number], [address] [place], [address], 9 14:13:56 Patient TargetsNo targets recorded. Patient Instructions Encounter Date Encounter Id Patient Instructions Last Modified By Organization Details Last Modified Time 12/01/2018 [id number] irritable bowel syndrome: care instructions Not available 12/01/2018 14:13:54 12/13/2018 [id number] constipation: ca re instructions [email or web address] Not available 12/13/2018 11:27:33 12/31/2018 [id number] thyroid nodules: care instructions Not available 12/31/2018 10:59:45 gastroesophageal reflux disease (GERD): care instructions Not available 12/31/2018 10:59:45 08/29/2019 [id number] pulse oximetry* [email or web address] Not available 08/29/2019 14:27:15 Reason for Referral Urologist Referral for Acute urinary tract infection Referring Physician: Mela [facility]ton [facility], Encounter Date: 12/13/2018 Results Created Date Observation Date Name Description Value Unit Range Abnormal Flag Note LastModifiedBy Organization Detail LastModifiedTime 12/14/19 19 12/13/2018 urina lysis , dipst ick Leukocytes Modera te Not Available [address], [address], 12/13/2018 11:05:56 12/14/19 19 12/13/2018 urina lysis , dipst ick Nitrite negati ve Not Available [address], [address], 12/13/2018 11:05:56 12/14/19 19 12/13/2018 urina lysis , dipst ick Urobilinogen .2 Not Available [facility] Internal [facility] [address] [facility] [address], [place], [address], 12/13/2018 11:05:56 12/14/19 19 12/13/2018 urina lysis , dipst ick Protein Negati ve Not Available [address], [address], 12/13/2018 11:05:56 12/14/19 19 12/13/2018 urina lysis , dipst ick pH 6.0 Not Available [facility] Internal [address], [place], [address], 12/13/2018 11:05:56 12/14/1912/13/2018 urina lysis , dipst ick Blood Large Not Available [facility] Internal Medicine [address] [facility] [address], [place], [address], 12/13/2018 11:05:56 12/14/1912/13/2018 urina lysis , dipst ick Specific [place] 1.010 Not Available [facility] Medicine [address] [facility] [address], [place], [address], 12/13/2018 11:05:56 12/14/1912/13/2018 urina lysis , dipst ick Ketone Negati ve Not Available [facility] Medicine [address] [facility] [address], [place], [address], 12/13/2018 11:05:56 12/14/1912/13/2018 urina lysis , dipst ick Bilirubin Negati ve Not Available [facility] Internal Medicine [address] [facility] [address], [place], [address], 12/13/2018 11:05:56 12/14/1912/13/2018 urina lysis , dipst ick Glucose Negati ve Not Available [facility] Medicine [address] [facility] [address], [place], [address], 12/13/2018 11:05:56 12/14/1912/13/2018 urina lysis , dipst ick Color Yellow Not Available [facility] Medicine [address] [facility] [address], [place], [address], 12/13/2018 11:05:56 12/14/1912/13/2018 urina lysis , dipst ick Appearance Clear Not Available [facility] Internal Medicine [address] [facility] [address], [place], [address], 12/13/2018 11:05:56 08/29/19 20 08/29/2019 pulse oxime try* Result 95 Not Available [facility] Internal Medicine [address], [place], [address], 08/29/2019 14:07:18 01/01/20 19 12/27/2018 Bone Densi ty Repor t No observ ation record ed. Not Available 2018 12:14:39 02/23/20 19 02/21/2019 elect alis chapa am No observ ation record ed. Not Available 2018 08:39:17 03/31/20 19 03/31/2019 MAMMO , scree brenden, bilat eral No observ ation record ed. [facility] (Outpt Imaging) [address] [facility], [place], [address], 03/31/2019 19:41:32 06/15/19 20 06/15/2019 CT, abdom en + pelvi s, w/wo contr ast No observ ation record ed. [email or web address] [facility] [address] [place], [address], 06/15/2019 16:43:48 01/02/20 20 01/02/2020 CT, bone document examiner al densi ty study , axial skele ton No observ ation record ed. [facility] Dept [address] [place], [address], 01/02/2020 11:29:25 01/09/20 20 01/02/2020 bone densi ty No observ ation record ed. [email or web address] Not Available 2019 09:57:01 01/28/20 21 01/27/2021 XR, chest , 2 view No observ ation record ed. [facility] [address] [place], [address], 01/27/2021 21:35:55 01/28/20 21 01/27/2021 CT, angio gram, chest , w/ contr ast No observ ation record ed. [facility] Dept [address] [facility], [place], [address], 01/27/2021 21:36:20 Result Notes None recorded. Problems Name Problem SNOMED Code Status Onset Date Resolution Date Notes Provider Name and Address Organization Details Recorded Time Paroxysma l atrial fibrillat ion 567248009 Active 2017 sees cardio - dr. ernesto escalona Not Available [facility] 0 16:54:53 Thyroid nodule 911797690 Active 2017 sees endo - dr. cheek Not Available [facility] 0 16:54:53 Heterogen eously dense breast compositi on 066214065 Active 2017 sees ob - dr. vaz Not Available [facility] 0 16:54:53 Left bundle branch block 97353180 Active 2018 Not Available [facility] 0 16:54:53 Gastroeso phageal reflux disease 167309039 Active 2017 Not Available [facility] 0 16:54:53 Cochlear prosthesi s in situ 364721231 Active 2017 sees ENT - dr. 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 [facility] Available [facility] 16:54:53 Melanoma in situ of skin (clinical ) 593643575 Active 2017 sees derm - [place] derm left breast s/p excision Not Available [facility] 0 16:54:53 Problem Notes None recorded. Procedures Surgical History None recorded. Imaging Results Imaging Date Name Status LastModified by Organization Details LastModified Time 12/27/2018 Bone Density Report completed Infor mation not available 02/08/2019 12:14:39 02/21/2019 electrocardiogram completed Informa tion not available 02/23/2019 08:39:17 03/31/2019 MAMMO, screening, bilateral completed [address] (Outpt Imaging) [address], [place], [address], 03/31/2019 19:41:32 06/15/2019 CT, abdomen + pelvis, w/wo contrast completed [email or web address] [facility] [address] [place], [address], 06/15/2019 16:43:48 01/02/2020 CT, bone mineral density study, axial skeleton completed [address] [facility] [address] [place], [address], 01/02/2020 11:29:25 01/02/2020 bone density completed [email or web address] Information not available 01/10/2020 09:57:01 01/27/2021 XR, chest, 2 view completed [address] [facility] [address] [place], [address], 01/27/2021 21:35:55 01/27/2021 CT, angiogram, chest, w/ contrast completed [address] [facility] [address] [place], [address], 01/27/2021 21:36:20 Procedure Notes None recorded. Medical Equipment None Reported. Allergies No known drug allergies Medications Name Sig Start Date Stop Date Status Note LastModified by Organization Details LastModified Time azithromyci n 250 mg tablet 09/28 completed Not Available Not Available Not Available diphenoxyla te-atropine 2.5 mg-0.025 mg tablet TAKE 2 TABLET(S) 3 TIMES A DAY BY ORAL ROUTE NEEDED FOR 14 DAYS. active Not Available Not Available No t Available ciprofloxac in 250 mg tablet Take 1 tablet every 12 hours by oral route for 7 days. 12/31 completed Not Available Not Available Not Available levofloxaci n 250 mg tablet Take 1 tablet every day by oral route for 7 days. 12/01 completed Not Available Not Available Not Available ciprofloxac in 500 mg tablet 12/13 completed Not Available Not Available Not Available sulfamethox azole 800 mg-trimetho prim 160 mg tablet 12/13 completed Not Available Not Available Not Available tramadol 50 mg tablet 02/02 completed Not Available Not Available Not Available omeprazole 20 mg capsule,del ayed release TAKE ONE CAPSULE BY MOUTH TWICE A DAY active Not Available Not Available No t Available hydrochloro thiazide 25 mg tablet 02/02 completed Not Available Not Available Not Available methylpredn isolone 4 mg tablets in a dose pack 24 mg PO on day 1, then decr. by 4 mg/day x5 days per dose pack instructi ons 02/15 completed Not Available Not Available Not Available cranberry active Not Available Not Filomena ilable Not Available Aspir-81 Take one tablet once a day active Not Available Not Available No t Available Vitamin D Take one tablet once a day active Not Available Not Available No t Available Stool Softener Take 2 tablets once a day 12/13 completed Not Available Not Available Not Available multivitami n take one daily active Not Available Not Available No t Available Probiotic Take one tablet once a day 12/13 completed Not Available Not Available Not Available Yuvafem 10 mcg vaginal tablet 12/31 completed Not Available Not Available Not Available Shingrix (PF) 50 mcg/0.5 mL intramuscul ar suspension, kit 02/08 completed Not Available Not Available Not Available Fluzone Quad 2017-(PF) 60 mcg(15 mcgx4)/0.5 mL intramuscul ar syringe 12/31 completed Not Available Not Available Not Available Afluria Qd (36 mos up)(PF)60 mcg (15 mcg x4)/0.5 mL IM syringe 02/08 completed Not Available Not Available Not Available Vitals Date Recorded Body height Body mass index (BMI) Body weight Heart rate Oxygen saturation Oxygen saturation in Arterial blood by Pulse oximetry Body temperature Systolic blood pressure Diastolic blood pressure Provider Name and Address Organization Details Last Updated DateTime 0 160.02 cm 31.2 kg/m2 35146.2 6 g 61 /min 95 % 95 % 97.5 [degF] 122 mm[Hg] 76 mm[Hg] BIANKA DE LA GARZA [address] [place], [address] [place] [address] Internal Medicine 0 14:09:23 Date Recorded Body height Heart rate Oxygen saturation Oxygen saturation in Arterial blood by Pulse oximetry Systolic blood pressure Diastolic blood pressure Provider Name and Address Organization Details Last Updated DateTime 9 160.02 cm 64 /min 98 % 98 % 118 mm[Hg] 70 mm[Hg] Tonja Mcclure [facility] Internal [facility] 9 13:34:59 Date Recorded Body height Body mass index (BMI) Body weight Heart rate Oxygen saturation Oxygen saturation in Arterial blood by Pulse oximetry Body temperature Systolic blood pressure Diastolic blood pressure Provider Name and Address Organization Details Last Updated DateTime 9 160.02 cm 29.7 kg/m2 94716.4 4 g 57 /min 98 % 98 % 97.5 [degF] 100 mm[Hg] 82 mm[Hg] Kathie Douglas [facility] Internal [facility] 9 11:08:23 Date Recorded Body height Body mass index (BMI) Body weight Heart rate Oxygen saturation Oxygen saturation in Arterial blood by Pulse oximetry Systolic blood pressure Diastolic blood pressure Provider Name and Address Organization Details Last Updated DateTime 9 160.02 cm 29.4 kg/m2 69355.0 5 g 56 /min 98 % 98 % 100 mm[Hg] 68 mm[Hg] Radu Stoll, DO [address] [place], [address] [place] [address] Internal [facility] 9 10:36:47 Date Recorded Body height Body mass index (BMI) Body weight Heart rate Oxygen saturation Oxygen saturation in Arterial blood by Pulse oximetry Systolic blood pressure Diastolic blood pressure Provider Name and Address Organization Details Last Updated DateTime 9 160.02 cm 29.4 kg/m2 02077.0 5 g 54 /min 98 % 98 % 118 mm[Hg] 60 mm[Hg] Tonja Mcclure [facility] Internal [facility] 9 11:50:22 Social History Question Answer Notes LastModified by Organizat ion Details LastModified Time Tobacco Smoking Status Never Smoker Keesha newton [facility] 09/28/2017 13:51:02 What Was The Date Of Your Most Recent Tobacco Screening? 12/01/2018 Information n ot available 12/23/2018 Sex: Unknown Functional Status None recorded. Mental Status None recorded. Family History Nothing Reported. Medical History No medical history recorded. Gynecological HistoryNo gynecological history recorded. Obstetrics History GPAL:G 0 P 0 0 0 0 Immunizations Vaccine Type Date Status Note Provider Nam e and Address Organization Details Recorded Time Influenza, split virus, quadrivalent, preservative 8 completed Not Available [facility] 07/02/2019 02:14:52 Influenza, split virus, quadrivalent, preservative 9 completed Tonja newton [facility] 02/08/2019 11:51:27 zoster live 9 completed Tonja newton [facility] 02/08/2019 11:51:46 Influenza, split virus, quadrivalent, preservative 0 completed Tonja newton [facility] 03/02/2020 13:44:14 zoster, unspecified formulation 0 [facility] 08:08:55 Past Encounters Encounter ID Performer Location Encounter Start Date Encounter Closed Date Diagnosis/Indication Diagnosis SNOMED-CT Code Diagnosis ICD10 Code Diagnosis Note [id number] Monica Catalan NP, [address],[place] [address] 09/28/2017 13:44:41 09/28/2017 16:36:44 History of head injury 481727548 Z87.828 non focal exam Headache 06767153 R51 Gastric polyp 56709604 K 31.7 has f/u endoscopy with Dr. Renee next month Paroxysmal atrial fibrillation 750693238 I48.0 no current [id number] Monica Catalan NP, [facility] [address] [facility],[place] [address] 10/20/2017 09:27:32 10/20/2017 09:51:54 Impacted cerumen 60456185 H61.23 Headache 74255991 R51 improved, (-) CT, labs reviewed Recurrent cystitis 5421 N30.90 [id number] August NNAMDI Templeton [facility] [address] [facility] [place] [address] 02/02/2018 11:21:44 02/02/2018 12:52:42 Contact dermatitis caused by urushiol from [facility] poison sergio 624921890 L25.5 can try zanfel otc as well advise to wash all clothes, bedding, shoes that may have been in contact with sergio/oak/thomas mac Gastroesop hageal reflux disease 491808283 K21.9 [id number] [facility] Internal Medicine [address] [place] [address] [place] [address] 02/15/2018 09:11:35 02/15/2018 10:32:33 Adult health examination 139430617 Z00.00 Active or passive immunization 454053890 Z23 Increased frequency of urination 840244650 R35.0 Thoracic back pain 16858 8004 M54.6 Heterogene ously dense breast composition 703415643 R92.[address] milind Ta f asting glycemia 984996151 R73.01 [id number] [facility] Internal Medicine [address] [place] [address] [place] [address] 03/22/2018 14:18:06 03/22/2018 14:49:47 Recurrent cystitis 510961291 N30.90 Paroxysmal atrial fibrillation 302841702 I48.0 Gastroesop hageal reflux disease 446295617 K21.9 [id number] [facility] [address] [place] [address] [place] [address] 12/01/2018 13:32:21 12/01/2018 14:30:35 Irritable bowel syndrome 62117161 K58.9 will start with lomotil and then consider also will need to start the fiber intake with a lot of H2O [id number] [facility] Internal Medicine [address] [place] [address] [place] [address] 12/13/2018 10:56:57 12/13/2018 13:34:14 Constipation 73410208 K59.00 would recommend she d/c the lomotil continue fiber continue fluids has gi appt tomorrow -will discuss further with them Muscular dystrophy 87522 009 G71.00 has constipati on/diarrhe a intermitte ntly, but usually constipati on more than diarrhea Paroxysmal atrial fibrillation 366430711 I48.0 Acute urin janak tract infection 951385935 N39.0 recurrent uti-like sx without positive culture will treat empiricall y for uti was supposed to have urology consult but she says when she called for appt office said there was no referral i do have fax confirmati on of uro consult with dr north will resend order Thyroid nodule 665305049 E04.1 likely going to need thyroidect miguel angel sees endo and surgeon [id number] Radu Stoll DO [facility] Internal Medicine [address] [facility],[place] [address] 12/31/2018 10:30:49 12/31/2018 11:32:33 Gastroesophageal reflux disease 449118142 K21.9 will be cont to have her take bid omeprazole as she has tried to go to qd but has gotten severe gerd at night Thyroid nodule 841030613 E04.1 will need to follow as she is almost ready to have removed will follow closely with endocrine Paroxysmal atrial fibrillation 740438069 I48.0 quiet and without breakthrou [id number] Radu Stoll DO [facility] Internal Medicine [address] [facility],[place] [address] 02/08/2019 11:46:00 02/08/2019 13:12:40 Left bundle branch block 20848432 I44.7 discussed the results of cardiac work up Pain of left heel 837136 8638 663155 M79.672 bursitis told to get a gell pad for the heels and to wear at all times [id number] BIANKA DE LA GARZA [facility] Internal Medicine [address] [facility],[place] [address] 08/29/2019 14:02:13 08/29/2019 15:02:29 Paroxysmal atrial fibrillation 017601047 I48.0 stable Upper resp iratory infection 13656080 J06.9 based on the patient's symptoms and the episodes of diarrhea the patient last week she most likely has a virus (URI) recommende d to take mucinex OTC if the patient begins to worsen she is instructed to call us patient understand s and agrees to this Health Concerns Section Related Observation LastModified by Organization Detai ls LastModified Time None Recorded Concern Status LastModified by Organization Details LastModified Time None Recorded Advance Directives Directive None Recorded Payers Encounter Date Sequence Insurance Name Policy Number Policy Munguia Covered Member ID Munguia Member ID Guarantor Name 12/01/2018 1 [facility] IN[employer] - [employer] [id number] Trinidad A Tonja [id number] Trinidad Tonja 12/13/2018 1 [employer] - [employer] [id number] Trinidad A Tonja [id number] Trinidad Tonja 12/31/2018 1 [employer] [id number] Trinidad A Tonja [id number] Trinidad Tonja 02/08/2019 1 [facility] [employer] - [employer] [id number] Trinidad A Tonja [id number] Trinidad Tonja 08/29/2019 1 [facility] [id number] Trinidad A Tonja [id number] Trinidad Tonja Notes Date Note Type Note Provider Name a nd Address Organization Details Recorded Time 12/01/2018 text/html has had a longstanding problem with constipation relates is very frustrated because she also can have weeks of diarrhea occ incont/ described as loose and watery has had a colonoscopy in the fall last year and had a egd and states all was ok has adjusted her eating eating less and is losing weight lost 10 lbs recently Radu Stoll, DO [address] [facility], [place], [address], [facility] Internal Medicine 12/01/2018 14:14:03 12/13/2018 text/html had diarrhea for several weeks, so started with lomotil and fiber and is now constipated. now for the past couple weeks with hard difficult stools. started having urinary frequency/urgency, burning and painful urination. took something otc with some relief of sx. no back pain 12 system ROS negative except where noted above- denies: chest pain, palpitations, sob, ankle swelling, visual problems, hearing problems, muscle aches or pains, numbness or tingling extremities, abdominal pain, bowel issues, bladder issues, sexual dysfunction, abnormal bleeding, sx of sinus/respiratory infection , headaches, dizziness/lighthea dedness, rashes, or nail changes. NNAMDI Lala [address] [place], [address], [facility] Internal Medicine 12/13/2018 11:28:20 12/31/2018 text/html here for rechk i s essentially doing well relates that she hasd a quick visit with the GI was told she needed a egd she just had a recent egd last year for the same Radu Stoll DO [address] [place], [address], [facility] Internal Medicine 12/31/2018 11:02:03 02/08/2019 text/html discharged 10 da ys ago from [facility] for cp ro acs did well all lab neg and the nuclear stress test was negative pain has stopped since being in the ER that day no ekg changes no lab findings Radu Stoll DO [address] [place], [address], [facility] Internal Medicine 02/08/2019 12:14:45 08/29/2019 text/html c/o chest congestion, right ear pain the patient states that last week she has diarrhea for which she was given lomotil she reports that she felt fatigued and run down last week the week she is now have chest congestion with productive cough mostly at night the patient states the mucus is clear with no change in color she had right ear pain that started with the congestion no sore throat no fevers, does not feel feverish no body aches the patient states that she has not been aware of being exposed to COVID has been self-isolating since August 15 due to her symptoms it is most likely a viral infection no fever, chest pain, sob, sore throat reports intermittent cough, chest congestion BIANKA DE LA GARZA [address] [place], [address], [facility] Internal Medicine 08/29/2019 14:27:34 OBGyn Episode No OBEpisode recorded.
--- OUTSIDE RECORDS SUMMARY | 2024-09-21 11:49 | XMS_ITS | Data Portability ---
Author Organization [place] - [facility], Allergy Address [address] [address] Care Team Providers Care Microphone Boom Operator Name Role Phone OBDULIA HERMOSILLO Primary Care Provider Assessment Encounter Date Assessment Date Assessment LastModified by Organization Details LastModified Time 09/07/2024 09/07/2024 correction bilateral CI. Discomfort over the left magnet in the past few months. Skin overlying left magnet erythematous and tender today which is concerning for impending pressure ulcer. Discussed with patient she should obtain Molefoam and use it as a cushion. Encouraged her to leave the device off until she obtains this. We discussed that continued use of the device as is increases the risk of skin ulceration and erosion. Dr. Kam sent a message to the [facility] and they will be seeing her tomorrow at 11:30 AM to change the magnet. Cochlear implant processors are over 5 years old and patient is eligible for updated technology. We will see her again in this office in [address] Kam evaluated the patient and determined the plan of care. Patient also evaluated by Monica Monroe PA-C who performed cerumen removal and acted as scribe. [email or web address] Not available 09/07/2024 12:56:15 Plan of Treatment Reminders Order Date Submit Date Provider Last Modified By Organization Details Last Modified Time Details Appointments Establish ed 15 2024 09:45A M ALIYA PINEDA PA-C Not available Not available Not available Lab None recorded. Referral None recorded. Procedures None recorded. Surgeries None recorded. Imaging None recorded. Medication Orders None recorded. Patient TargetsNo targets recorded. Patient InstructionsNo instructions recorded. Reason for Referral None Reported. Problems Name Problem SNOMED Code Status Onset Date Resolution Date Notes Provider Name and Address Organization Details Recorded Time Cochlear prosthesi s in situ 438670686 Active 2020 Cochlear implant status; Note: Date Diagnosed : 01/01/2021 9:28 AM (Z96.21) Not Available [facility] 4 03:23:24 Impacted cerumen of bilateral ears 42720843929 86159 Active 2015 Impacted cerumen, bilateral ; Note: Date Diagnosed : 10/02/2015 3:35 PM (H61.23) Not Available [facility] 4 03:23:24 Sensorine ural hearing loss of bilateral ears 055453377 Active 2015 Sensorine ural hearing loss, bilateral ; Note: Date Diagnosed : 10/02/2015 3:35 PM (H90.3) Not Available [facility] 4 03:23:24 Impacted cerumen 96116746 Active 2013 Impacted cerumen; CMS Risk: low risk CMS Treatment : new problem (to examiner) : no additiona l workup planned Not Available [facility] 4 03:23:24 Pressure injury 9947502521 Active 2024 TESS KAM MD [address] [place] [address], [id number] , [facility] 5 12:55:12 Problem Notes None recorded. Procedures Surgical History Date Name Laterality Status Provider Name and Address Organization Details Recorded Time Cerumen removal without microscope bilat completed MONICA MONROE PA-C [address] [place] [address], [place], [address], [facility] 09/07/2024 10:01:17 Imaging Results None recorded. Procedure Notes None recorded. Medical Equipment None Reported. Allergies Allergen ID Allergen Name Allergen Category Reaction Reaction Severity Criticality Documentation Date Start Date Code Code System Note Provider Name and Address Organization Details Recorded Time 481124 Substance with morphinan structure and opioid receptor agonist mechanism of action (substanc e) medicatio n other Not available Not available 10/13/2023 50785 5550 SNOMED React ion: unkno wn, unspe cifie d;; Not Available [facility] 4 01:21:39 Medications Name Sig Start Date Stop Date Status Note LastModified by Organization Details LastModified Time andres ne hippurate 1 gram tablet active Medicati on ID: [id number] B rand Name: jordon lamberturat e Send Method: E-Prescr ibed Sub s Allowed: subs OK Medic ationGen ericName : jordon nj hippurat e Not Available Not Available Not Available magnesium 500 mg (as magnesium oxide) tablet Take 1 tablet every day by oral route. active Not Available Not Available No t Available cranberry fruit 400 mg capsule 2015 active Medicati on ID: [id number] B rand Name: cranberr y Send Method: E-Prescr ibed Sub s Allowed: subs OK Medic ationGen ericName : cranberr y Medica tion ID: [id number] B rand Name: cranberr y Send Method: E-Prescr ibed Sub s Allowed: subs OK Medic ationGen ericName : cranberr y Not Available Not Available Not Available omeprazol e 20 mg capsule,d elayed release 2015 active Medicati on ID: [id number] D uration Value: 30 Brand Name: omeprazo le Send Method: E-Prescr ibed Sub s Allowed: subs OK Speci al Instruct ion: TAKE ONE CAPSULE BY MOUTH EVERY DAY Medi cationGe nericNam e: omeprazo le Not Available Not Available Not Available ibuprofen 600 mg tablet 09/07 completed Medicati on ID: [id number] Du ration Value: 8 Brand Name: ibuprofe n Send Method: E-Prescr ibed Sub s Allowed: subs OK Speci al Instruct ion: TAKE 1 TABLET BY MOUTH 4 TIMES A DAY NEEDED M edicatio nGeneric Name: ibuprofe n Not Available Not Available Not Available rosuvasta tin 10 mg tablet Take 1 tablet every day by oral route. active Not Available Not Available No t Available furosemid e 10mg active Not Available Not Available Not Available metoprolo l succinate 12.5mg daily active Not Available Not Available No t Available Trelegy Ellipta 100 mcg-62.5 mcg-25 mcg powder for inhalatio n Inhale 1 puff every day by inhalati on route. active Not Available Not Available No t Available cranberry fruit concentra te 215 mg capsule 09/07 completed Medicati on ID: [id number] B rand Name: therese wilson Send Method: E-Prescr ibed Sub s Allowed: subs OK Medic ationGen ericName : therese wilson Not Available Not Available Not Available Vitals Date Recorded Body height Body mass index (BMI) Body weight Provider Name and Address Organization Details Last Updated DateTime 09/07/2024 160.02 cm 29.1 kg/m2 15060.15 g Monica Porras [place] - [facility] 09/07/2024 09:23:50 Social History None recorded. Functional Status None recorded. Mental Status None recorded. Family History Nothing Reported. Medical History No medical history recorded. Gynecological HistoryNo gynecological history recorded. Obstetrics History GPAL:G 0 P 0 0 0 0 Past Encounters Encounter ID Performer Location Encounter Start Date Encounter Closed Date Diagnosis/Indication Diagnosis SNOMED-CT Code Diagnosis ICD10 Code Diagnosis Note [id number] TESS KAM MD [facility] [address] [address] 09/07/2024 09:15:45 09/07/2024 09:47:18 Sensorineural hearing loss of bilateral ears 611467567 H90.3 Cochlear p rosthesis in situ 254701919 Z96.21 Impacted c erumen of bilateral ears 8984312354 369560 H61.23 Pressure injury 34342101 07 L89.811 Health Concerns Section Related Observation LastModified by Organization Detai ls LastModified Time None Recorded Concern Status LastModified by Organization Details LastModified Time None Recorded Advance Directives Directive None Recorded Payers Encounter Date Sequence Insurance Name Policy Number Policy Munguia Covered Member ID Munguia Member ID Guarantor Name 09/07/2024 1 MEDICARE B-[place]: [employer] Trinidad Evangelista [id number] Trinidad Corriganorenzo 09/07/2024 2 [facility] INDEMNITY PLAN - COUNT INCLUDES THE [facility] [id number] Trinidad Corriganorenzo [id number] Trinidad Evangelista Notes Date Note Type Note Provider Name and Address Organization Details Recorded Time 09/07/2024 text/html 63 year old fema le with long standing bilateral cochlear implant presents today for evaluation of the ears. She reports the ears do not hurt, the hearing is unchanged, and there is no otorrhea. However, for the past few months she has had some pain overlying the magnet on the left. Feels okay throughout the day but hurts by the end of the evening. She was in [place] for the winter and does not have a care team down there. She has an appointment pending with Garrison Paz but not until October. She has changed her magnet strength from 3 to 2 and this has helped a bit. States her tells her the skin gets red in the evening. CIs are over five years old. TESS KAM MD [address] [place] [address], [place], [address], [place] - [facility] 09/07/2024 12:56:47 OBGyn Episode No OBEpisode recorded.
== END 2024-09-21 11:13 | disposition home or self-care (01) ==
PROVIDERS: PCP Internal Medicine; Referring Provider Internal Medicine; Visit Provider Hospitalist
DX: G71.11 Myotonic muscular dystrophy (principal); I42.9 Cardiomyopathy, unspecified; I95.9 Hypotension, unspecified; R06.09 Other forms of dyspnea; G47.33 Obstructive sleep apnea (adult) (pediatric)
CPT/HCPCS: 99205

== ENCOUNTER → 2024-09-21 10:09 | Outpatient (BNVA) | payer OTHER, SELFPAY | PROVIDERS: PCP Internal Medicine; Referring Provider Internal Medicine; Visit Provider Hospitalist | DX: J44.9 Chronic obstructive pulmonary disease, unspecified (principal); I42.9 Cardiomyopathy, unspecified; I48.91 Unspecified atrial fibrillation; G71.11 Myotonic muscular dystrophy; I95.9 Hypotension, unspecified; G70.9 Myoneural disorder, unspecified; R06.09 Other forms of dyspnea; G47.33 Obstructive sleep apnea (adult) (pediatric) | CPT/HCPCS: 99202 ==

== ENCOUNTER 2024-09-21 11:34 | Emergency (ER) | payer MEDICARE, OTHER, SELFPAY ==
[2024-09-21] VITALS (7 sets, daily range): BP systolic 89–106; BP diastolic 42–68; PULSE 46–58; RESP 11–16; TEMP 36.1–36.5; O2SAT 94–96; BMI 28.8
--- NOTE | ~2024-09-21 | XR_ITS ---
EXAMINATION: XR CHEST CLINICAL INFORMATION: hypotension COMPARISON: 04/20/2017. TECHNIQUE: Frontal view of the chest was obtained. FINDINGS: Borderline cardiac enlargement. Mediastinal and hilar contours are normal. The lungs are clear bilaterally. No pneumothorax or effusion. Enchondroma left proximal humerus. This is unchanged. No additional soft tissue or osseous abnormalities. XR/XR chest 1V IMPRESSION: No active disease. Electronically signed by: Sebastien Ervin MD 09/21/2024 12:46 PM EDT
--- NOTE | 2024-09-21 12:03 | ED_ITS ---
HPI - General Adult General Chief complaint: Recheck/Abnormal Lab/Rx Stated complaint: Low Blood Pressure Time Seen by Provider: 09/21/24 13:08 History of Present Illness ED Provider: Marlene ARELLANO narrative: The patient is a 63-year-old female who has a history of myotonic muscular dystrophy. She also has a history of atrial fibrillation and had a successful ablation procedure 2 years ago. She tells me that she also has a history of a left bundle branch block and a history of a depressed ejection fraction. She is on metoprolol and Entresto. She has been prescribed furosemide but does not take it. She has not been on anticoagulation since her ablation procedure. Today the patient had a scheduled appointment with Dr. Payne of pulmonology. The patient has some chronic shortness of breath issues and she has been prescribed Trelegy. She had seen a previous camp dining room attendant who advised against Trelegy. She was scheduled today to see Dr. Payne for a 2nd opinion. This morning she drove herself to [facility] for her appointment. When she was at Dr. Payne's office she was found to be bradycardic and hypotensive and was referred to the emergency room. The patient says that she has had some nausea for about 5 or 6 days, since last Thursday. She has also had a sense of mild shakiness when she stands up. She denies feeling lightheaded. She has not fainted. She has had no chest pain or worsening shortness of breath. She says that she felt fine when she was driving herself to the hospital this morning. She says that her metoprolol was initiated a proximally 3 months ago by a e commerce solution architect in [place]. Entresto was also initiated at the same time. The patient was prescribed furosemide by the same e commerce solution architect but the patient does not take it. No cough or sputum. No fever, sweats, chills. No nausea or vomiting. No headache. Related Data Home Medications ?Medication ?Instructions ?Recorded ?Confirmed cranberry fruit 400 mg tablet 400 mg PO DAILY 09/21/24 fluticasone fur. 100 mcg-umeclid 1 inh inhalation DAILY 09/21/24 62.5 mcg-vilant 25 mcg inhalat.powder (Trelegy Ellipta) furosemide 20 mg tablet 10 mg PO DAILY 09/21/24 magnesium aspart,citrate,oxide 400 mg PO DAILY 09/21/24 methenamine mandelate 1 gram tablet 1 g PO ONCE 09/21/24 metoprolol succinate 25 mg 12.5 mg PO DAILY 09/21/24 tablet,extended release 24 hr multivitamin 1 tab PO DAILY 09/21/24 omeprazole 40 mg capsule,delayed 40 mg PO DAILY 09/21/24 release rosuvastatin 40 mg tablet 40 mg PO DAILY 09/21/24 sacubitril 24 mg-valsartan 26 mg 1 tab PO BID 09/21/24 tablet (Entresto) Allergies Allergy/AdvReac Type Severity Reaction Status Date / Time adhesive Allergy Mild rash Verified 09/21/24 12:06 NARCOTICS Allergy Intermediate RASH Uncoded 09/21/24 12:06 narcotcis Allergy Unknown Rash Uncoded 09/21/24 12:06 NARCOTCS Allergy Unknown Unknown Uncoded 09/21/24 12:06 Review of Systems 2 Review of Systems: Yes all other systems are reviewed and are negative [facility] Past Medical History Medical History (Updated 09/21/24 @ 15:05 by Fausto Rosario MD) Neuromuscular disease Cardiomyopathy Dyspnea Social History Social History Alcohol intake: current Alcohol intake frequency: holidays/special occasions only Patient Tobacco Use Status: Former Tobacco user Smoked in Last 30 Days: No Advance Directives: No Advance Directives Information Provided: Yes Physical Exam ED Vital Signs: Vital Signs - 24 hr 09/21/24 12:05 09/21/24 12:53 09/21/24 14:00 Temperature 97.7 F 97.0 F Pulse Rate 46 L 57 58 Respiratory Rate 16 15 11 L Blood Pressure 94/55 L 98/60 90/66 Pulse Oximetry 95 95 96 Oxygen Delivery Method Room Air Room Air Room Air 09/21/24 14:22 09/21/24 14:22 09/21/24 14:23 Temperature Pulse Rate 52 57 56 Respiratory Rate Blood Pressure 103/42 L 106/68 104/66 Pulse Oximetry Oxygen Delivery Method 09/21/24 15:15 09/21/24 15:34 Temperature 97.0 F Pulse Rate 57 57 Respiratory Rate 12 12 Blood Pressure 89/59 L 89/59 L Pulse Oximetry 94 94 Oxygen Delivery Method Room Air Room Air BMI result Body Mass Index 28.8 Const Other: The patient is awake and alert. She does not appear in obvious distress. She is pleasant and cooperative. HENMT Other: Face is symmetrical. Mucous membranes moist. Eyes General: appearance normal, both eyes and all related structures Neck Other: No obvious JVD Resp Effort & Inspection: normal respiratory effort Auscultation: clear to auscultation bilaterally Cardio Rate: bradycardic Rhythm: regular rhythm Heart sounds: S1 normal heart sound present and S2 normal heart sound present GI Other: Abdomen is soft and nontender Skin Other: Skin is dry and unremarkable Neuro Other: The patient is awake and alert with a normal mental status. Cranial nerves are grossly intact. She moves her extremities symmetrically and appropriately. Extrem Other: No peripheral edema. No calf swelling or tenderness. Course Course Course Narrative: This is a Rapid Medical Exam performed in triage by Sudha Blevins PA-C. Full HPI, ROS and PE to be performed by primary ED provider. 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 denies CP, SOB, dizziness. Currently on Metoprolol, did take today PE: hypotensive 94/55 in triage, in wheelchair in ED (not at baseline) Plan: EKG, labs, UA, orthostatics, CXR Medical Decision Making Medical Decision Making [facility] Narrative: The patient is a 63-year-old woman who has a history of atrial fibrillation which resolved following an ablation procedure 2 years ago. She is not on anticoagulation. She does have some history of a cardiomyopathy however and has a known old left bundle branch block. She was also prescribed Entresto and metoprolol and furosemide by a e commerce solution architect in [place] 3 months ago. She does not take the furosemide. She takes 12.5 mg of metoprolol succinate. Again this was started 3 months ago. The patient was sent to the emergency room after going to a scheduled appointment with the pulmonology today. She had driven herself to the appointment and had not been feeling particularly ill in any way. At the appointment she was found to be bradycardic and hypotensive. Here she does not look toxic. EKG shows a a left bundle branch block which is apparently old (patient reports a history of a known left bundle branch block). She is in sinus rhythm. Her troponin is not elevated. She says that she has had some symptoms of nausea for about 5 days. I do not have any good explanation for why she might be having these symptoms of nausea unless they are the result of some degree of hypotension and bradycardia. Overall I did not feel the patient required hospitalization. I spoke to the patient has cardiology nurse physician behavioral health assistant at [facility], Gracy Lira, who was able to confirm an old left bundle branch block. After this conversation the patient will be discharged with instructions to stop her metoprolol and to follow up soon with the cardiology office. The patient seems comfortable being discharged. I think she is safe to drive. Lab Data 09/21/24 12:26 09/21/24 12:26 Labs: Lab Results 09/21/24 Range/Units 12:26 WBC 7.3 (4.8-10.8) X10*3/uL RBC 4.57 (4.20-5.50) X10*6/uL Hgb 13.7 (12.0-16.0) g/dl Hct 41.2 (37.0-47.0) % MCV 90.2 (80.0-98.0) fL MCH 30.0 (27.0-33.0) pg MCHC 33.3 (31.0-35.0) g/dl RDW 12.5 (11.0-16.0) % Plt Count 170 (160-400) X10*3/uL MPV 9.9 (9.4-12.3) fL Immature Gran % (Auto) 0.4 (0.0-0.4) % Neut % (Auto) 73.8 H (45-73) % Lymph % (Auto) 18.5 L (20-40) % Garden % (Auto) 7.0 (2-11) % Eos % (Auto) 0.0 (0-4) % Baso % (Auto) 0.3 (0-2) % Lymph # (Auto) 1.4 (1.2-4.9) X10*3/uL Garden # (Auto) 0.5 (0.1-1.2) X10*3/uL Eos # (Auto) 0.0 (0.0-0.4) X10*3/uL Baso # (Auto) 0.0 (0.0-0.2) X10*3/uL Abs Immat Gran (auto) 0.03 (0.00-0.03) X10*3/uL Absolute Neuts (auto) 5.4 (2.0-8.3) x10*3/uL Absolute Nucleated RBC 0.000 (0.0-0.012) X10*3/uL Nucleated RBC % (auto) 0.0 (0.0-0.2) /100WBC Sodium 141 (135-145) mmol/L Potassium 4.7 (3.3-5.1) mmol/L Chloride 106 (96-108) mmol/L Carbon Dioxide 29 (22-29) mmol/L Anion Gap 11 L (12-20) BUN 18 H (9-16) mg/dL Creatinine 0.75 (0.5-1.4) mg/dL Estim Creat Clear Calc 74.7 Estimated GFR > 60 Random Glucose 98 (60-115) mg/dL Calcium 10.2 D (8.4-10.2) mg/dL Magnesium 2.2 (1.6-2.6) mg/dL Total Bilirubin 1.5 H (0.0-1.0) mg/dL Direct Bilirubin 0.5 (0.0-0.5) mg/dL AST 31 (5-31) U/L ALT 30 (0-31) U/L Alkaline Phosphatase 83 (39-117) U/L Troponin I High Sens 13.8 (<3.5-17.0) ng/L B-Natriuretic Peptide 195 H (<100) pg/mL Total Protein 7.0 (6.5-8.0) g/dL Albumin 4.1 (3.5-5.0) g/dL Urine Color Dark Yellow Urine Appearance Cloudy Urine pH 5.5 (5.0-9.0) Ur Specific [place] 1.025 (1.005-1.025) Urine Protein Trace (Neg-Trace) mg/dL Urine Glucose (UA) Negative (Negative) mg/dL Urine Ketones Trace (Negative) mg/dL Urine Blood Negative (Negative) Urine Nitrite Negative (Negative) Ur Leukocyte Esterase Small (1+) H (Negative) Urine RBC 0-2 (0-2) /HPF Urine WBC 0-5 (0-5) /HPF Ur Squamous Epith Cells 6-10 (0-2) /HPF Urine Bacteria None Seen (None Seen) Hyaline Casts 0-2 (0-2) /LPF Granular Casts Present Influenza Type A (PCR) NEGATIVE (Negative) Influenza Type B (PCR) NEGATIVE (Negative) RSV RNA Qual (PCR) NEGATIVE (Negative) SARS-CoV-2 RNA (RT-PCR) NEGATIVE (Negative) Independent Interpretation I performed an independent interpretation of an: EKG Interpretation: The patient's EKG at 13 14 showed sinus bradycardia at 56 beats per minute with a first-degree AV block. There is a left bundle branch block. No recent old EKGs for comparison are available but the patient reports that she has a history of a left bundle branch block. A repeat EKG at 13:14 showed PVCs but was otherwise very similar. Discharge Plan Discharge Clinical Impression: Low blood pressure, Cardiomyopathy, Bradycardia, Myotonic dystrophy Patient Disposition: Home, Self-Care Additional Instructions: Please stop taking your metoprolol. Continue your other medications for now. If you are feeling reasonably well you may continue with all of your regular activities. You should be hearing from your cardiology office about a follow up appointment. If you have worsening symptoms please call the cardiology office for additional advice or go to the emergency room at [facility]. Prescriptions: No Action Entresto 24-26 mg tablet 1 tab PO BID furosemide 20 mg tablet 10 mg PO DAILY magnesium aspart,citrate,oxide 400 mg magnesium capsule 400 mg PO DAILY methenamine mandelate 1 gram tablet 1 g PO ONCE Rx Instructions: administer after meals and at bedtime metoprolol succinate 25 mg tablet extended release 24 hr 12.5 mg PO DAILY omeprazole 40 mg capsule,delayed release(DR/EC) 40 mg PO DAILY rosuvastatin 40 mg tablet 40 mg PO DAILY multivitamin Tablet 1 tab PO DAILY Trelegy Ellipta 100-62.5-25 mcg blister with device 1 inh inhalation DAILY cranberry fruit 400 mg tablet 400 mg PO DAILY Rx Instructions: administer with a meal Referrals: Terry Metcalf MD [Primary Care Provider] - Yousif Gil MD [Physician] - Interventions: ED Discharge Assessment Last Done: 09/21/24 15:34 Discharge Date/Time: 09/21/24 15:36 Print Language: Pashto
--- NOTE | 2024-09-21 12:08 | ECG_ITS ---
Test Reason : hypotension Blood Pressure : */* mmHG Vent. Rate : 56 BPM Atrial Rate : 56 BPM P-R Int : 284 ms QRS Dur : 166 ms QT Int : 482 ms P-R-T Axes : 70 -42 92 degrees QTcB Int : 465 ms Sinus bradycardia with 1st degree A-V block Left axis deviation Left bundle branch block Abnormal ECG When compared with ECG of 25-Jul-2010 12:17, Left bundle branch block present DE prolonged Referred By: Sudha Blevins Electronically Signed By: MIYA ANDREWS
[2024-09-21 12:32] LABS: MANUAL DIFF FLAG NO
[2024-09-21 12:34] LABS: Basophils Percent Auto 0.3 % (0-2); Hematocrit 41.2 % (37.0-47.0); Hemoglobin 13.7 g/dl (12.0-16.0); Imm Gran Abs Auto 0.03 X10*3/uL (0.00-0.03); Imm Gran Pct Auto 0.4 % (0.0-0.4); Lymphocytes Absolute Auto 1.4 X10*3/uL (1.2-4.9); Lymphocytes Percent Auto 18.5 % (20-40); Mean Corpuscular HGB Conc 33.3 g/dl (31.0-35.0); Mean Corpuscular Volume 90.2 fL (80.0-98.0); Mean Platelet Volume 9.9 fL (9.4-12.3); Monocytes Absolute Auto 0.5 X10*3/uL (0.1-1.2); Neutrophils Absolute Auto 5.4 x10*3/uL (2.0-8.3); Neutrophils Percent Auto 73.8 % (45-73); Platelet Count 170 X10*3/uL (160-400); Red Blood Count 4.57 X10*6/uL (4.20-5.50); Red Cell Distribution Width 12.5 % (11.0-16.0); White Blood Count 7.3 X10*3/uL (4.8-10.8)
[2024-09-21 12:35] LABS: Appearance Urine Cloudy; Color Urine Dark Yellow; Glucose Urine UA Negative (Negative); Leukocyte Esterase Urine Small (1+) (Negative); Nitrite Urine Negative (Negative); PH 5.5 (5.0-9.0); Specific Gravity - Urine 1.025 (1.005-1.025); UMIC TRIGGER UACC YES; Urine Blood Negative (Negative); Urine Ketones Trace mg/dL (Negative); Urine Protein Trace mg/dL (Neg-Trace)
[2024-09-21 12:50] LABS: Alanine Aminotransferase 30 U/L (0-31); Albumin Level 4.1 g/dL (3.5-5.0); Alkaline Phosphatase 83 U/L (39-117); Anion Gap 11 (12-20); Aspartate Amino Transferase 31 U/L (5-31); Bilirubin Direct 0.5 mg/dL (0.0-0.5); Bilirubin Total 1.5 mg/dL (0.0-1.0); Blood Urea Nitrogen 18 mg/dL (9-16); Calcium 10.2 mg/dL (8.4-10.2); Carbon Dioxide 29 mmol/L (22-29); Chloride 106 mmol/L (96-108); Creatinine Clr Calc Pharmacy 74.7; Estimated Glomerular Filt Rate > 60; Glucose Random 98 mg/dL (60-115); Magnesium 2.2 mg/dL (1.6-2.6); Potassium 4.7 mmol/L (3.3-5.1); Sodium 141 mmol/L (135-145)
[2024-09-21 12:55] LABS: Troponin-I High Sensitivity 13.8 ng/L (<3.5-17.0)
--- NOTE | 2024-09-21 13:08 | ECG_ITS ---
Test Reason : palpitations Blood Pressure : */* mmHG Vent. Rate : 56 BPM Atrial Rate : 56 BPM P-R Int : 266 ms QRS Dur : 164 ms QT Int : 518 ms P-R-T Axes : 49 -43 88 degrees QTcB Int : 499 ms Sinus bradycardia with 1st degree A-V block with frequent Premature ventricular complexes Left axis deviation Left bundle branch block Abnormal ECG When compared with ECG of 21-Sep-2024 12:18, Premature ventricular complexes are now Present Referred By: Fausto Rosario Electronically Signed By: MIYA ANDREWS
[2024-09-21 13:09] LABS: Bacteria Urine None Seen (None Seen); Granular Casts Urine Present; Hyaline Casts Urine 0-2 /LPF (0-2); RBC Urine 0-2 /HPF (0-2); UACC Culture Trigger YES; WBC Urine 0-5 /HPF (0-5)
--- NOTE | 2024-09-21 13:09 | PC.NURSE ---
Patient presents from her human capital consultant's office and was noted to be hypotensive with sbp in the 70's and was sent to the ED for further evaluation. conveyor monitor applied and rythym strip noted to have frequent multi focal PVC's and ? some sort of heart block. Repeat EKG ordered. Lungs clear bilat. Respirations even and non-labored. Abdomen flat soft, non-tender with positive bowel sounds. Positive pedal pulses with no edema. Provider at the bedside.
[2024-09-21 13:10] LABS: Influenza A PCR NEGATIVE (Negative); Influenza B PCR NEGATIVE (Negative); Resp Syncy Virus RNA Qual PCR NEGATIVE (Negative); SARS COV2 PCR INHOUSE NEGATIVE (Negative)
[2024-09-21 13:56] LABS: B Type Natriuretic Peptide 195 pg/mL (<100)
--- OUTSIDE RECORDS SUMMARY | 2024-09-21 15:17 | XMS_ITS | Encounter Summary ---
Author Organization [employer] [place] [address] Care Team Providers Care Director Of Career Services Name Role Phone Terry Metcalf MD Primary Care Provider [phone] Reason for Visit * Reason Onset Date Comments [facility] 09/21/2024 Encounter Details Date Type Department Care Team (Late st Contact Info) Description 09/21/2024 Telephone [facility] - [facility] [address] [facility] [address] [address] Kandi Smyth [facility] Social History Tobacco Use Types Packs/Day Years Used Date Smoking Tobacco: Former Smokeless Tobacco: Never Alcohol Use Standard Drinks/Week Comments Yes 0 (1 standard drink = 0.6 oz pur e alcohol) Comments Unknown Sex and Gender Information Value Date Recorded Sex Assigned at Female 07/19/2024 10:39 AM EST Legal Sex Female 3:38 PM EST Gender Identity Female 07/19/2024 10:39 AM EST Sexual Orientation Straight 07/19/2024 10 :39 AM EST documented as of this encounter Progress Notes * BIANKA Clement - 09/21/2024 2:48 PM EDT Call to ER - C Dr. Delong will stop BB, IVF being given no sxs of infection, leukocytosis , will DC home isf sys BP > 90 and asym - if contiued low BP will stop entresto - polly aware to schedule [facility] hospital FU * Kandi Smyth [place] - 09/21/2024 2:[address] Sandoval from [facility] Er is requesting a call back the patient came to them todayfrom Pulmonary appointment with Hypotension and Bradycardia she is currently on Metoprolol succ 25 mg. She felt well enough to drive to the ER. Please call his cell [phone]. documented in this encounter Plan of Treatment Upcoming Encounters Date Type Department Care Team (Late st Contact Info) Description 10/25/2024 1:40 PM EDT Office Visit [facility] - [address] [address] Gracy Lira PA [address] [place] [address] documented as of this encounter Visit Diagnoses Not on filedocumented in this encounter Care Teams Director Of Career Services Relationship Specialty Start Date End Date Terry Metcalf MD [address] [place] [address] PCP - General Internal Medicine 06/15/24 documented as of this encounter
--- OUTSIDE RECORDS SUMMARY | 2024-09-21 15:17 | XMS_ITS | Clinical Summary ---
Author Organization 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 Assessment & Plan (06/15/2024 3:38 PM EST): Pt with new cardio LVEF 30-35% by outside record from [place]. Nuclear stress without signs of ischemia . [...] Encounters Date Type Department Care Team Description 09/21/2024 Telephone [facility] - [address] [place] [address] Kandi Smyth [place] [facility] 08/01/2024 2:15 PM EST Office Visit [facility] [place] [address] [address] Raleigh Tamez MD Atrial fibrillation, unspecified type (CMS/HCC V24, CMS/HCC V28) (Primary Dx); Congestive heart failure, NYHA class 1, unspecified congestive heart failure type (CMS/HCC V24, CMS/HCC V28); Mixed hyperlipidemia; 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 (CMS/HCC V24) 07/19/2024 10:44 AM EST - 07/19/2024 11:59 PM EST Hospital Encounter [facility] Department [facility] [place] [address] Congestive heart failure, NYHA class 1, unspecified congestive heart failure type (CMS/HCC V24, CMS/HCC V28); Stable angina (CMS/HCC V24) Discharge Disposition: Home or Self Care 07/19/2024 10:36 AM EST - 07/19/2024 11:59 PM EST Hospital Encounter [facility] Department [address] [place] [address] Congestive heart failure, NYHA class 1, unspecified congestive heart failure type (CMS/HCC V24, CMS/HCC V28) Discharge Disposition: Home or Self Care 06/28/2024 9:30 AM EST Ancillary Procedure [facility] [place] [address] [address] Congestive heart failure, NYHA class 1, unspecified congestive heart failure type (CMS/HCC V24, CMS/HCC V28) from Last 3 Months Medical History Medical History Date Comments COPD (chronic obstructive pulmonary disease) (CM S/HCC V24, CMS/HCC V28) History of cochlear implant Muscular dystrophy (CMS/HCC V24, CMS/HCC V28) Acid reflux Social History Tobacco Use [...] Description 10/25/2024 1:40 PM EDT Office Visit [facility] - [address] [place] [phone] Gracy Lira PA [address] [place] [address] Health Maintenance Due Date Last Done Comments [...] SCCT, ACR and NASCI endorsed by the [employer] [place] [employer]. *ASCVD risk using the 10-year risk Pooled Cohort Equations. Reference: https://doi.org/10.1016/j.nocc2716.03.008 -------- FINAL REPORT -------- Dictated By: Jenn Cramer Dictated Date: 07/19/2024 12:06 ET Assigned Physician: Jenn Cramer Reviewed and Electronically Signed By: Jenn Cramer Signed Date: 07/19/2024 18:00 ET Workstation ID: [id number] Transcribed By: Self Edit Transcribed Date: 07/19/2024 [...] the 10-year risk Pooled Cohort Equations. 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 Focal calcified and noncalcified eccentric plaques [...] caliber. It gives origin to diagonaland septal chemical process engineer branches. Focal calcified and noncalcified eccentric plaques [...] Signed Date: 07/19/2024 13:55 ET Workstation ID: [id number] Transcribed By: Self Edit Transcribed Date: 07/19/2024 [...] 47 mL CV PACS Left Atrium Minor [place] 5.6 cm CV PACS Left Atrium Major [place] 5.1 cm CV PACS LA Area Sys [...] Gradient 1 mmHg CV PACS MV Deceleration [place] 2.5 m/s2 CV PACS E Wave Deceleration [...] Area Continuity Equation 3.3 cm2 CV PACS OR End Max Velocity 0.9 m/s CV PACS [...] mmol/L LAB CHEMISTRY METHOD 04/26/2024 5:10 PM [facility] Potassium 4.4 3.5 - 5.5 mmol/L LAB CHEMISTRY METHOD 04/26/2024 5:10 PM [facility] Chloride 105 96 - 110 mmol/L LAB CHEMISTRY METHOD 04/26/2024 5:10 PM [facility] CO2 28 21 - 32 mmol/L LAB CHEMISTRY METHOD 04/26/2024 5:10 PM [facility] Anion Gap 7 3 - 11 LAB CHEMISTRY METHOD 04/26/2024 5:10 PM [facility] Glucose 70 70 - 100 mg/dL LAB CHEMISTRY METHOD 04/26/2024 5:10 PM [facility] BUN 21 5 - 25 mg/dL LAB CHEMISTRY METHOD 04/26/2024 5:10 PM [facility] Creatinine 0.80 0.50 - 1.10 mg/dL LAB CHEMISTRY METHOD 04/26/2024 5:10 PM [facility] eGFR 82 >=60 mL/min/1. 73m2 LAB CHEMISTRY METHOD 04/26/2024 5:10 PM [facility] Comment:Calculation based on the??Chronic Kidney Disease Epidemiology Collaboration (CKD-EPI) equation refit??without adjustment for race. BUN/Creatinine Ratio 26.3 LAB CHEMISTRY METHOD 04/26/2024 5:10 PM EST [facility] Calcium 10.1 8.5 - 10.5 mg/dL LAB CHEMISTRY METHOD 04/26/2024 5:10 PM EST [facility] Blood Venous blood specimen / Unknown Venipuncture / Unknown 04/26/2024 12:58 PM EST 04/26/2024 4:22 PM EST us Gracy [facility] LAB BLOOD ORDERABLES Final Resul t [facility] [address] [place] [address], * TERRY DEXA AXIAL SKELETON (01/02/2020 9:45 AM EDT) Anatomical Region Laterality Modality Mammography 01/02/2020 8:53 AM EDT Narrative 01/02/2020 9:45 AM EDT [facility] Diagnostic Imaging Department [address] [place] [address] Patient: ??TRINIDAD EVANGELISTA ?/Age/Sex: 1960 - 59 - F Unit#: ??[id number] ? Location/Status: ??SPDIMAM/REG CLI ? Mnemonic/Ordering Site: [...] probability of hip fracture of 0.8%. Code 94964 Dictating Physician: ??ELO ADAIR MD Electronically Signed by: ??ELO ADAIR MD Dic Date/Time: ??01/02/20943 Sign date/Time: ??01/02/20944 Procedure Note Elo Adair MD - 05/21/2022 [facility] Diagnostic Imaging Department [address] [place] [address] Patient: TRINIDAD EVANGELISTA/Age/Sex: 1960 - 59 - F Unit#: [id number] Location/Status: SPDIMAM/REG CLI [facility] Ordering Physician: NIKCY NORTH MD Terry Dexa Axial Skeleton - 01/02/20 - 939 HISTORY: The patient is a 59-year-old postmenopausal [...] density of the femurs bilaterally is 0.984 gm/xb3gumvn is 98% of that of young normals [...] probability of hip fracture of 0.8%. Code 39263 Dictating Physician: ELO ADAIR MD Electronically Signed by: ELO ADAIR MD Dic Date/Time: 01/02/20943 Sign date/Time: 01/02/20944 Nicky North MD IMG BI PROCEDURES Final Result from Last 3 Months or Most Recently Relevant to Health Maintenance Insurance [facility] MEDIC[facility] Advance Directives Documents on File Type Date Recorded Patient Power System Operator Expl anation Health Care Decision (hx) 01/28/2021 [...] (hx) 01/26/2019 AD GANN DIRECTIVE Care Teams Heading Up Machine Operator Relationship Specialty Start Date End Date Terry Metcalf MD [address] [place] [address] PCP - General Internal Medicine 06/15/24
--- OUTSIDE RECORDS SUMMARY | 2024-09-21 15:17 | XMS_ITS | Clinical Summary ---
Author Organization [facility] Address [address] [place] [address] Care Team Providers Care Application Lead Name Role Phone Unknown, Primary Care Provider [...] age to complete this topic Care Teams Application Lead Relationship Specialty Start Date End Date Unknown, PCP - General 03/26/22
== END 2024-09-21 15:36 | disposition home or self-care (01) ==
PROVIDERS: Physician Assistant; Emergency Provider Emergency Medicine; PCP Internal Medicine
DX: R03.1 Nonspecific low blood-pressure reading (principal); I42.9 Cardiomyopathy, unspecified; R00.2 Palpitations; I48.91 Unspecified atrial fibrillation; G71.11 Myotonic muscular dystrophy; Z79.899 Other long term (current) drug therapy; Z03.818 Encounter for observation for suspected exposure to other biological agents ruled out
CPT/HCPCS: 0241U; 36415; 71045; 80048; 80076; 81001; 83735; 83880; 84484; 85025; 87086; 93005; 99283; 99285

== ENCOUNTER → 2024-09-21 12:08 | Outpatient (BNV) | payer MEDICARE, OTHER, SELFPAY | PROVIDERS: Emergency Provider Emergency Medicine; PCP Internal Medicine; Visit Provider Internal Medicine | DX: I44.7 Left bundle-branch block, unspecified (principal); I44.0 Atrioventricular block, first degree; R00.1 Bradycardia, unspecified; I49.3 Ventricular premature depolarization | CPT/HCPCS: 93010 ==

== ENCOUNTER → 2024-09-21 12:09 | Outpatient (BNV) | payer MEDICARE, OTHER, SELFPAY | PROVIDERS: PCP Internal Medicine; Visit Provider Radiology Diagnostic Radiology | DX: I95.9 Hypotension, unspecified (principal) | CPT/HCPCS: 71045 ==

== ENCOUNTER 2024-09-28 11:10 | Outpatient (REF) | payer MEDICARE, OTHER, SELFPAY ==
--- OUTSIDE RECORDS SUMMARY | 2024-09-28 12:49 | XMS_ITS | Clinical Summary ---
Author Organization [facility] Address [address] [place] [address] Care Team Providers Care Stonehand Name Role Phone Unknown, Primary Care Provider [...] age to complete this topic Care Teams Stonehand Relationship Specialty Start Date End Date Unknown, PCP - General 03/26/22
--- OUTSIDE RECORDS SUMMARY | 2024-09-28 12:50 | XMS_ITS | Encounter Summary ---
Author Organization [place] [address] Care Team Providers Care Pelts Skinner Name Role Phone Terry Metcalf MD Primary Care Provider [phone] Encounter Details Date Type Department Care Team (Late st Contact Info) Description 09/28/2024 Telephone [facility] - [facility] [address] [facility] [address] [place] [phone] Gracy Lira PA [address] [place] [address] Social History Tobacco Use Types Packs/Day Years [...] AM EST documented as of this encounter Functional Status * Are you deaf or do you have serious difficulty hearing? Answer Date of Assessment Author No 09/22/2024 8:01 PM EDT Jalil Cuellar RN * Are you blind or do you have serious difficulty seeing, even when wearing glasses? Answer Date of Assessment Author No 09/22/2024 8:01 PM EDT Jalil Cuellar RN * Do you have serious difficulty walking or climbing stairs? Answer Date of Assessment Author No 09/22/2024 8:01 PM EDT Jalil Cuellar RN * Do you have serious difficulty dressing or bathing? Answer Date of Assessment Author No 09/22/2024 8:01 PM EDT Jalil Cuellar RN * Because of a physical, mental, or emotional condition, do you have serious difficulty doing errandsalone such as visiting the doctor? Answer Date of Assessment Author No 09/22/2024 8:01 PM EDT Jalil Cuellar RN documented as of this encounter Mental Status * Because of a physical, mental, or emotional condition, do you have serious difficulty concentrating, remembering, or making decisions? (5 years old or older) Answer Entry Date Author No 09/22/2024 8:01 PM EDT Jalil Cuellar RN documented in this encounter Progress Notes * BIANKA Clement - 09/28/2024 9:54 AM EDT Call to pt agrees to echo 09/30 at 12:30 * BIANKA Clement - 09/28/2024 9:07 AM EDT Please call patient to see if she can come in for an echo September 2 at 1230 please reinforce this wouldbe very beneficial in helping our decision making pacemaker versus defibrillator. If she is able tomake the appointment can you forward this to Félix he is holding the slot for her documented in this encounter Plan of Treatment Upcoming Encounters Date Type Department Care Team (Late st Contact Info) Description 10/04/2024 1:10 PM EDT Office Visit [facility] - [address] [place] [address] Gracy Lira PA [address] [place] [address] 10/25/2024 1:40 PM EDT Office Visit [facility] - [address] [place] [phone] Gracy Lira PA [address] [place] [address] documented as of this encounter Visit Diagnoses Not on filedocumented in this encounter Care Teams Pelts Skinner Relationship Specialty Start Date End Date Terry Metcalf MD [address] [place] [address] PCP - General Internal Medicine 06/15/24 documented as of this encounter
--- OUTSIDE RECORDS SUMMARY | 2024-09-28 12:50 | XMS_ITS | Encounter Summary ---
Author Organization [employer] Address [address] [place] [address] Care Team Providers Care Front Of House Manager Name Role Phone Terry Metcalf MD Primary Care Provider [phone] Reason for Visit * Reason Comments 48 Hour Holter Monitor * Cardiac Stress Testing (Routine) - Authorized Specialty Diagnoses / Procedures Referred By Contac t Referred To Contact Cardiology Diagnoses Atrial fibrillation, unspecified type (CMS/HCC V24, CMS/HCC V28) Bradycardia PVC (premature ventricular contraction) Procedures Cardiac holter monitor (<= 48 hours) IA ECG EXTERNAL UP TO 48 HOURS RECORDING IA ECG EXTERNAL < 48 HOURS CONTINUOUS RECORDING/STORAGE R&I BY A PHYS/QHP IA EXTERNAL ECG UP TO 48 HRS INCL RECORDING SCANNING ANLYS W REPORT Gracy Lira PA [address] [place] [address] Phone: tel: fax: [facility] Referral ID Status Reason Start Date Expiration Date V isits Requested Visits Authorized [id number] Authorized 09/27/2024 09/27/2025 1 1 Encounter Details Date Type Department Care Team (Latest Contact Info) Description 09/27/2024 1:00 PM EDT Ancillary Procedure [facility] - [address] [place] [address] Atrial fibrillation, unspecified type (CMS/HCC V24, CMS/HCC V28); Bradycardia; PVC (premature ventricular contraction) Social History Tobacco Use Types Packs/Day Years [...] Jalil Cuellar RN documented in this encounter Plan of Treatment Upcoming Encounters Date Type Department Care Team (Late st Contact Info) Description 10/04/2024 1:10 PM EDT Office Visit [facility] - [facility] [address] [facility] [address] [place] [address] Gracy Lira PA [address] [place] [address] 10/25/2024 1:40 PM EDT Office Visit [facility] - [address] [place] [phone] Gracy Lira PA [address] [place] [address] Pending Results Name Type Priority Associated Diagnoses Date /Time Cardiac holter monitor (<= 48 hours) Cardiac Services Routine Atrial fibrillation, unspecified type (CMS/HCC V24, CMS/HCC V28) Bradycardia PVC (premature ventricular contraction) 09/27/2024 3:39 PM EDT documented as of this encounter Visit Diagnoses Diagnosis Atrial fibrillation, unspecified type (CMS/HCC V24, CMS/HCC V28) Bradycardia Other specified cardiac dysrhythmias PVC (premature ventricular contraction) Other premature beats documented in this encounter Care Teams Front Of House Manager Relationship Specialty Start Date End Date Terry Metcalf MD [address] [place] [address] PCP - General Internal Medicine 06/15/24 documented as of this encounter
--- OUTSIDE RECORDS SUMMARY | 2024-09-28 12:50 | XMS_ITS | Encounter Summary ---
Author Organization [place] [address] Care Team Providers Care Supervisor Metalizing Name Role Phone Terry Metcalf MD Primary Care Provider [phone] Reason for Visit * Reason Onset Date Comments Appointment 09/26/2024 ER F/U Encounter Details Date Type Department Care Team (Late st Contact Info) Description 09/26/2024 Telephone [facility] - [facility] [address] [facility] [address] [place] [address] Gracy Lira PA [address] [place] [address] Appointment (ER F/U) Social History Tobacco Use Types Packs/Day Years [...] Assessment Author No 09/22/2024 8:01 PM EDT Cuellar, R nancy, RN * Are you blind or do [...] documented in this encounter Progress Notes * Sergio Ricks - 09/26/2024 9:[address] Gil called for patient to be moved up for a hospital f/u. Patient was seen in ER twice once at [facility] and once at [facility] recently. Meds been stopped. Patients expericeing edema over the weekend which is new symptom. She feels like her oulse is pounding in her throat. B/p low. Per Dr. Gil schedule sooner appt. documented in this encounter Plan of Treatment Upcoming Encounters Date Type Department Care Team (Late st Contact Info) Description 10/04/2024 1:10 PM EDT Office Visit [facility] - [facility] [address] [facility] [address] [place] [address] Gracy Lira PA [address] [place] [address] 10/25/2024 1:40 PM EDT Office Visit [facility] - [address] [place] [address] Gracy Lira PA [address] [place] [address] documented as of this encounter Visit Diagnoses Not on filedocumented in this encounter Care Teams Supervisor Metalizing Relationship Specialty Start Date End Date Terry Metcalf MD [address] [place] [address] PCP - General Internal Medicine 06/15/24 documented as of this encounter
--- OUTSIDE RECORDS SUMMARY | 2024-09-28 12:50 | XMS_ITS | Clinical Summary ---
Author Organization [facility] Address [address] [place] [address] Phone Care Team Providers Care Redrawer Name Role Phone Terry Metcalf MD Primary Care Provider [phone] Allergies Active Allergy Reactions Criticality Noted Date Comments Adhesive Tape-Silicones Rash 09/22/2024 patient has skin rash w adhesive Fentanyl Hives 05/30/2015 Hydrocodone-Acetaminophen Rash Low 07/13/2009 Hydromorphone Hives 05/30/2015 Levorphanol Hives 05/30/2015 Morphine Hives,Rash Low 05/30/2015 Opioids - Morphine Analogues Hives,Other 05/30/2015 Substance with morphinan structure and opioid receptor agonist mechanism of action (substance) Oxycodone Hives 05/30/2015 Oxycodone-Acetaminophen Rash Low 07/13/2009 Tramadol 06/24/2022 severe whole body itching Medications omeprazole (PriLOSEC) [address] capsule Take 20 mg by mouth 2 times daily. 7 Active methenamine hippurate (HIPREX) 1 gram tablet Take 1 g by mouth daily 9 Active fluticasone-um eclidinium-dorothy anterol (TRELEGY ELLIPTA) 100-62.5-25 mcg inhaler Inhale into the lungs. Active CRANBERRY ORAL Take by mouth. Active MULTIVITAMIN ORAL Take by mouth. Activ e magnesium oxide (MAG-OX) 400 mg magnesium tablet Take 1 tablet (400 mg total) by mouth 1 (one) time each day. Active rosuvastatin (CRESTOR) 40 mg tablet Take 1 tablet (40 mg total) by mouth 1 (one) time each day. 90 each 5 08/02/19 26 Active rosuvastatin (CRESTOR) 40 mg tablet Take 1 tablet (40 mg total) by mouth 1 (one) time each day. 90 each 5 08/02/19 26 Active Additional Information Patient not taking.Reported on 09/27/2024 midodrine (PROAMATINE) 2.5 mg tablet Take 1 tablet (2.5 mg total) by mouth 3 (three) times a day before meals. 90 each 5 10/29/19 25 Active cholecalcifero l (VITAMIN D-3) 1,250 mcg (50,000 unit) capsule Take by mouth. 09/28/19 25 Discontin ued(Thera py completed ) UNABLE TO FIND Take by mouth. Med Name: Calcium Carb-Cholecalci ferol (CALCIUM 1000 + D OR) 09/28/19 25 Discontin ued(Thera py completed ) metoprolol succinate (TOPROL-XL) 25 mg 24 hr tablet Take 0.5 tablets (12.5 mg total) by mouth 1 (one) time each day. Do not crush or chew. 45 each 1 5 09/28/19 25 Discontin ued(Thera py completed ) rosuvastatin (CRESTOR) 5 mg tablet Take 1 tablet (5 mg total) by mouth 1 (one) time each day. 09/28/19 25 Discontin ued(Formu sho change) furosemide (LASIX) 20 mg tablet Take 1 tablet (20 mg total) by mouth 1 (one) time each day. 30 each 5 09/28/19 25 Discontin ued(Thera py completed ) sacubitriL-sheron sartan (ENTRESTO) 24-26 mg per tablet Take 1 tablet by mouth 2 (two) times a day. 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 V24) 08/01/2024 Overview (08/01/2024): Nuclear Stress Test [...] (congestive heart failur e), NYHA class I ([facility] V24, 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 Assessment & Plan (06/15/2024 3:38 PM EST): Pt with new cardio LVEF 30-35% by outside record from [place]. Nuclear stress without signs of ischemia . [...] Encounters Date Type Department Care Team Description 09/28/2024 Telephone [facility] [address] [place] [address] Gracy Lira PA 09/28/[address] [facility] [address] [place] [address] Yousif Gil MD Med Refill 09/27/2024 3:10 PM EDT Office Visit [facility] [address] [place] [address] Gracy Lira PA Atrial fibrillation, unspecified type (CMS/HCC V24, CMS/HCC V28) (Primary Dx); Bradycardia; PVC (premature ventricular contraction); Orthostatic hypotension 09/27/2024 1:00 PM EDT Ancillary Procedure [facility] [address] [place] [phone] Atrial fibrillation, unspecified type (CMS/HCC V24, CMS/HCC V28); Bradycardia; PVC (premature ventricular contraction) 09/26/[address] [facility] [address] [place] [address] Gracy Lira PA Appointment (ER F/U) 09/22/2024 7:23 PM EDT - 09/22/2024 10:43 PM EDT Emergency [facility] [address] [place] [phone] Macario Gary MD Hypotension, unspecified hypotension type (Primary Dx); Dehydration; Adverse effect of drug, initial encounter Discharge Disposition: Home or Self Care 09/21/[address] [facility] [address] [place] [phone] Kandi Smyth [place] [facility] ER 08/01/2024 2:15 PM EST Office Visit [facility] [address] [phone] Raleigh Tamez MD Atrial fibrillation, unspecified type (CMS/HCC V24, CMS/HCC V28) (Primary Dx); Congestive heart failure, NYHA class 1, unspecified congestive heart failure type (CMS/HCC V24, CMS/HCC V28); Mixed hyperlipidemia; Coronary artery disease involving [place] coronary artery of [place] heart with angina pectoris (CMS/HCC V24) 07/19/2024 10:44 AM EST - 07/19/2024 11:59 PM EST Hospital Encounter [facility] Department [address] [place] [address] Congestive heart failure, NYHA class 1, unspecified congestive heart failure type (CMS/HCC V24, CMS/HCC V28); Stable angina (CMS/HCC V24) Discharge Disposition: Home or Self Care 07/19/2024 10:36 AM EST - 07/19/2024 11:59 PM EST Hospital Encounter [facility] Department [address] [place] [phone] Congestive heart failure, NYHA class 1, unspecified congestive heart failure type (CMS/HCC V24, CMS/HCC V28) Discharge Disposition: Home or Self Care from Last 3 Months Medical History Medical History Date Comments COPD (chronic obstructive pulmonary disease) (CM S/HCC V24, CMS/HCC V28) History of cochlear implant Muscular dystrophy (CMS/HCC V24, CMS/HCC V28) Acid reflux Atrial fib/flutter, transient (CMS/HCC V24, CMS/ HCC V28) HTN (hypertension) Hypotension Social History Tobacco Use Types Packs/Day Years [...] Sign Reading Time Taken Comments Blood Pressure 100/60 09/27/2024 3:43 PM EDT Pulse 67 09/27/2024 3:43 PM EDT Temperature 36.6 ??C (97.9 ??F) 09/22/2024 8:42 PM ED T Respiratory Rate 16 09/22/2024 10:26 PM EDT Oxygen Saturation 97% 09/27/2024 3:05 PM EDT Inhaled Oxygen Concentration - - Weight 77.6 kg (171 lb) 09/27/2024 3:05 PM EDT Height 157.5 cm (5' 2 ) 09/27/2024 3:05 PM EDT Body Mass Index 31.28 09/27/2024 3:05 PM EDT Plan of Treatment Upcoming Encounters Date Type Department Care Team (Late st Contact Info) Description 10/04/2024 1:10 PM EDT Office Visit [facility] [address] [place] [address] Gracy Lira PA [address] [place] [address] 10/25/2024 1:40 PM EDT Office Visit [facility] [address] [place] [address] Gracy Lira PA [address] [place] [address] Health Maintenance Due Date Last Done Comments Breast Cancer Screening 1960 Cervical Cancer Screening: Pap Smear 11/20/1979 Cholesterol Screening (Lipid Panel) 04/30/2022 Colorectal Cancer Screening: Colonoscopy 04/30/2022 Depression Screening 04/30/2022 Hepatitis C Screening 04/30/2022 Medicare Annual Wellness Visit 04/30/2022 Social Influencers of Health Screening 04/30/2022 Falls Risk Assessment 11/20/2023 COVID-19 Vaccine ( season) 2024 04/09/2021, 09/06/2020, 08/16/2020 Hypertension/CHF/CAD Annual BMP Blood Test 09/22/2025 09/22/2024, 04/26/2024, 08/23/2021 Osteoporosis Screening (Bone Density Screening) 01/01/2030 01/02/2020 DTaP,Tdap,and Td Vaccines (2 - Td or Tdap) 06/21/2032 06/21/2022 Zoster Vaccines Completed 03/05/2020, 01/14/2019 RSV Immunization Adult Patients Completed 04/14/2023 Influenza Vaccine Completed 03/05/2024, , 04/09/2021, Additional history exists Pneumococcal Vaccine: 50+ Years Completed 05/16/2024 Pneumococcal Vaccine: Pediatrics (0 to 5 Years) and At-Risk Patients (6 to 64 Years) Completed 05/16/2024 HIB Vaccines Aged Out No longer eligi [...] Procedure Name Priority Date/Time Associated Diagnosis Comments ECG 12-LEAD Routine 09/27/2024 4:29 PM EDT Atrial fibrillation, unspecified type (CMS/HCC V24, CMS/HCC V28) Bradycardia PVC (premature ventricular contraction) TROPONIN I HIGH SENSITIVITY STAT 09/22/2024 7:57 PM EDT ECG 12-LEAD STAT 09/22/2024 7:48 PM EDT XR CHEST 2 VIEWS STAT 09/22/2024 6:01 PM EDT CBC WITH AUTO DIFFERENTIAL STAT 09/22/2024 5:53 PM EDT B-TYPE NATRIURETIC PEPTIDE STAT 09/22/2024 5:53 PM EDT MAGNESIUM STAT 09/22/2024 5:53 PM EDT LIPASE STAT 09/22/2024 5:53 PM EDT COMPREHENSIVE METABOLIC PANEL STAT 09/22/2024 5:53 PM EDT CBC AND DIFFERENTIAL STAT 09/22/2024 5:53 PM EDT TROPONIN I HIGH SENSITIVITY STAT 09/22/2024 5:53 PM EDT ECG 12-LEAD STAT 09/22/2024 5:[address] HEART CALCIUM SCORING WO CONTRAST Routine 07/19/2024 12:03 PM EST Congestive heart failure, NYHA class 1, unspecified congestive heart failure type (CMS/HCC V24, CMS/HCC V28) CT ANGIO HEART W 3D IMAGING/FUNCTION Routine 07/19/2024 11:58 AM EST Congestive heart failure, NYHA class 1, unspecified congestive heart failure type (CMS/HCC V24, CMS/HCC V28) Stable angina (CMS/HCC V24) TERRY DEXA AXIAL SKELETON Routine 01/02/2020 9:45 AM EDT Encounter for screening for osteoporosis from Last 3 Months or Most Recently Relevant to Health Maintenance Results * ECG 12 lead (09/27/2024 4:29 PM EDT) Only the most recent of3 resultswithin the time period is included. Ventricular Rate ECG 59 BPM GEMUSE Atrial Rate 59 BPM GEMUSE P-R Interval 270 ms GEMUSE QRS Duration 162 ms GEMUSE Q-T Interval 474 ms GEMUSE QTc 469 ms GEMUSE P [place] 85 degrees GEMUSE R [place] -46 degrees GEMUSE T [place] 88 degrees GEMUSE ECG Interpretation Sinus bradycardia with 1st degree A-V block with frequent Premature ventricular complexes Left axis deviation Left ventricular hypertrophy with QRS widening and repolarization abnormality Possible Lateral infarct , age undetermined Abnormal ECG When compared with ECG of 22-SEP-2024 19:48, Left bundle branch block is no longer Present Borderline criteria for Lateral infarct are now Present GEMUSE 09/27/2024 3:18 PM EDT us Gracy CARLTON ECG ORDERABLES Final Result Performing Organization Address [facility] de Phone Number GEMUSE * Troponin I high sensitivity (09/22/2024 7:57 PM EDT) Only the most recent of2 resultswithin the time period is included. Pathologist [facility] High Sensitivity Troponin I 24 <=54 ng/L LAB CHEMISTRY METHOD 09/22/2024 8:35 PM EDT [facility] Blood Venous blood specimen / Unknown Venipuncture / Unknown 09/22/2024 7:57 PM EDT 09/22/2024 8:04 PM EDT Narrative [facility] - 09/22/2024 8:35 PM EDT High levels of biotin in samples may falsely decrease hsTroponin values. ??Use caution when interpreting hsTroponin results in patients taking biotin who exhibit renal impairment (eGFR <60) or in patients taking more than 20 mg/day of biotin. Macario Gary MD LAB BLOOD ORDERABLES Final Res ult Performing Organization Address City/[facility]/ZIP Co de Phone Number [facility] [address] [place] [address], [place] [phone] * XR Chest 2 Views (09/22/2024 6:01 PM EDT) Anatomical Region Laterality Modality Body Radiographic Margaret ging 09/23/2024 8:23 AM EDT Impressions 09/23/2024 8:24 AM EDT No acute chest disease. The cardiac silhouette is prominent. -------- FINAL REPORT -------- Dictated By: Prince Schneider Dictated Date: 09/23/2024 08:23 ET Assigned Physician: Prince Schneider Reviewed and Electronically Signed By: Prince Schneider Signed Date: 09/23/2024 08:24 ET Workstation ID: [id number] Transcribed By: Self Edit Transcribed Date: 09/23/2024 08:23 ET Narrative 09/23/2024 8:24 AM EDT EXAMINATION: CHEST CLINICAL INFORMATION: Chest pain COMPARISON: Frontal view 07/18/21 TECHNIQUE: 2 views of the chest FINDINGS: There is slight tortuosity of the aorta similar to previous. The cardiac silhouette is mildly prominent. There is no hilar mass. There is no vascular congestion. No consolidation or measures of atelectasis. The visualized pleural margins are within normal limits. There is exaggeration of the expected thoracic kyphosis with minimal unchanged volume loss in the midthoracic spine. There is osteopenia. Probably unchanged chondroid lesion left proximal humerus. 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 Procedure Note Prince Schneider MD - 09/23/2024 EXAMINATION: CHEST CLINICAL INFORMATION: Chest pain COMPARISON: Frontal view 07/18/21 TECHNIQUE: 2 views of the chest FINDINGS: There is slight tortuosity of the aorta similar to previous. The cardiacsilhouette is mildly prominent. There is no hilar mass. There is novascular congestion. No consolidation or measures of atelectasis. The visualized pleural margins are within normal limits. There is exaggeration of the expected thoracic kyphosis with minimalunchanged volume loss in the midthoracic spine. There is osteopenia. Probably unchanged chondroid lesion left proximal humerus. This likelyrepresents a nonaggressive enchondroma. IMPRESSION: No acute chest disease. The cardiac silhouette is prominent. -------- FINAL REPORT -------- Dictated By: Prince Schneider Dictated Date: 09/23/2024 08:23 ET Assigned Physician: Prince Schneider Reviewed and Electronically Signed By: Prince Schneider Signed Date: 09/23/2024 08:24 ET Workstation ID: [id number] Transcribed By: Self Edit Transcribed Date: 09/23/2024 08:23 ET Macario Gary MD IMG XR PROCEDURES Final Result * CBC auto differential (09/22/2024 5:53 PM EDT) Pathologist [facility] WBC 5.7 4.8 - 10.8 K/mcL LAB HEMETOLOGY METHOD 09/22/2024 6:18 PM EDT [facility] RBC 4.20 3.80 - 4.80 M/mcL LAB HEMETOLOGY METHOD 09/22/2024 6:18 PM EDT [facility] Hemoglobin 12.5 11.5 - 16.0 g/dL LAB HEMETOLOGY METHOD 09/22/2024 6:18 PM EDT [facility] Hematocrit 38.3 35.0 - 47.0 % LAB HEMETOLOGY METHOD 09/22/2024 6:18 PM EDT [facility] MCV 91.2 79.0 - 98.0 FL LAB HEMETOLOGY METHOD 09/22/2024 6:18 PM EDT [facility] MCH 29.8 27.0 - 32.0 pcg LAB HEMETOLOGY METHOD 09/22/2024 6:18 PM EDT [facility] MCHC 32.6 32.0 - 37.0 g/dL LAB HEMETOLOGY METHOD 09/22/2024 6:18 PM EDT [facility] RDW 12.4 11.0 - 15.0 % LAB HEMETOLOGY METHOD 09/22/2024 6:18 PM EDT [facility] Platelets 159 130 - 400 K/mcL LAB HEMETOLOGY METHOD 09/22/2024 6:18 PM EDT [facility] MPV 10.4 7.0 - 11.0 FL LAB HEMETOLOGY METHOD 09/22/2024 6:18 PM EDT [facility] NRBC 0.0 <1.0 % LAB HEMETOLOGY METHOD 09/22/2024 6:18 PM [facility] NRBC Absolute 0.00 <0.10 K/mcL LAB HEMETOLOGY METHOD 09/22/2024 6:18 PM [facility] Neutrophils Relative 70.8 % LAB HEMETOLOGY METHOD 09/22/2024 6:18 PM [facility] Lymphocytes Relative 22.0 % LAB HEMETOLOGY METHOD 09/22/2024 6:18 PM [facility] Monocytes Relative 6.8 % LAB HEMETOLOGY METHOD 09/22/2024 6:18 PM [facility] Eosinophils Relative 0.0 % LAB HEMETOLOGY METHOD 09/22/2024 6:18 PM [facility] Basophils Relative 0.2 % LAB HEMETOLOGY METHOD 09/22/2024 6:18 PM [facility] Immature Granulocytes Relative 0.2 % LAB HEMETOLOGY METHOD 09/22/2024 6:18 PM [facility] Neutrophils Absolute 4.06 1.50 - 7.00 K/mcL LAB HEMETOLOGY METHOD 09/22/2024 6:18 PM EDT [facility] Lymphocytes Absolute 1.26 1.00 - 5.00 K/mcL LAB [facility]EMETOLOGY [facility]22[facility]24 [facility] Monocytes Absolute 0.39 0.20 - 1.00 K/mcL LAB HEMETOLOGY METHOD 09/22/2024 6:18 PM [facility] Eosinophils Absolute 0.00 0.00 - 0.50 K/mcL LAB HEMETOLOGY METHOD 09/22/2024 6:18 PM EDT [facility] Basophils Absolute 0.01 0.00 - 0.20 K/[facility] LAB HEMETOLOGY METHOD 09/22/2024 6:18 PM EDT [facility] Immature Granulocytes Absolute 0.01 0.00 - 0.03 K/[facility] LAB HEMETOLOGY METHOD 09/22/2024 6:18 PM EDT [facility] Blood Venous blood specimen / Unknown Venipuncture / Unknown 09/22/2024 5:53 PM EDT 09/22/2024 6:12 PM EDT Macario Gary MD LAB BLOOD ORDERABLES Final Res ult Performing Organization Address City/[facility]/ZIP Co de Phone Number [facility] [address] [place] [address], [place] [phone] * (ABNORMAL) B-type natriuretic peptide (09/22/2024 5:53 PM EDT) BNP 149(H) <=100 pcg/mL LAB CHEMISTRY METHOD 09/22/2024 7:05 PM EDT [facility] Blood Venous blood specimen / Unknown Venipuncture / Unknown 09/22/2024 5:53 PM EDT 09/22/2024 6:12 PM EDT Macario Gary MD LAB BLOOD ORDERABLES Final Res ult [facility] [address] [place] [address], [place] [phone] * Magnesium (09/22/2024 5:53 PM EDT) Magnesium 2.1 1.9 - 2.6 mg/dL LAB CHEMISTRY METHOD 09/22/2024 6:44 PM EDT [facility] Blood Venous blood specimen / Unknown Venipuncture / Unknown 09/22/2024 5:53 PM EDT 09/22/2024 6:12 PM EDT us Macario Gary MD LAB BLOOD ORDERABLES Final Res ult Performing Organization Address [facility]/ZIP Co de Phone Number [facility] [address] [place] [address], [place] [phone] * Lipase (09/22/2024 5:53 PM EDT) [facility] Lipase 30 13 - 75 unit/L LAB CHEMISTRY METHOD 09/22/2024 6:44 PM EDT [facility] Blood Venous blood specimen / Unknown Venipuncture / Unknown 09/22/2024 5:53 PM EDT 09/22/2024 6:12 PM EDT us Macario Gary MD LAB BLOOD ORDERABLES Final Res ult Performing Organization Address City/[facility]/ZIP Co de Phone Number [facility] [address] [place] [address], [place] [phone] * (ABNORMAL) Comprehensive metabolic panel (09/22/2024 5:53 PM EDT) [facility] Sodium 139 133 - 145 mmol/L LAB CHEMISTRY METHOD 09/22/2024 6:44 PM EDT [facility] Potassium 4.5 3.5 - 5.5 mmol/L LAB CHEMISTRY METHOD 09/22/2024 6:44 PM EDT [facility] Comment:Hemolysis present Chloride 108 96 - 110 mmol/L LAB CHEMISTRY METHOD 09/22/2024 6:44 PM EDT [facility] CO2 29 21 - 32 mmol/L LAB CHEMISTRY METHOD 09/22/2024 6:44 PM EDT [facility] Anion Gap 2(L) 3 - 11 LAB CHEMISTRY METHOD 09/22/2024 6:44 PM EDT [facility] Glucose 86 70 - 100 mg/dL LAB CHEMISTRY METHOD 09/22/2024 6:44 PM [facility] BUN 22 5 - 25 mg/dL LAB CHEMISTRY METHOD 09/22/2024 6:44 PM [facility] Creatinine 0.86 0.50 - 1.10 mg/dL LAB CHEMISTRY METHOD 09/22/2024 6:44 PM [facility] eGFR 75 >=60 mL/min/1. 73m2 LAB CHEMISTRY METHOD 09/22/2024 6:44 PM [facility] Comment:Calculation based on the??Chronic Kidney Disease Epidemiology Collaboration (CKD-EPI) equation refit??without adjustment for race. BUN/Creatinine Ratio 25.6 LAB CHEMISTRY METHOD 09/22/2024 6:44 PM [facility] Calcium 9.6 8.5 - 10.5 mg/dL LAB CHEMISTRY METHOD 09/22/2024 6:44 PM [facility] AST (SGOT) 24 10 - 42 unit/L LAB CHEMISTRY METHOD 09/22/2024 6:44 PM [facility] ALT (SGPT) 26 10 - 60 unit/L LAB CHEMISTRY METHOD 09/22/2024 6:44 PM [facility] Alkaline Phosphatase 81 42 - 121 unit/L LAB CHEMISTRY METHOD 09/22/2024 6:44 PM [facility] Total Protein 6.4 6.0 - 8.0 g/dL LAB CHEMISTRY METHOD 09/22/2024 6:44 PM [facility] Albumin 3.3 3.2 - 5.0 g/dL LAB CHEMISTRY METHOD 09/22/2024 6:44 PM [facility] Total Bilirubin 1.0 0.0 - 1.4 mg/dL LAB CHEMISTRY METHOD 09/22/2024 6:44 PM [facility] Blood Venous blood specimen / Unknown Venipuncture / Unknown 09/22/2024 5:53 PM EDT 09/22/2024 6:12 PM EDT us Macario Gary MD LAB BLOOD ORDERABLES Final Res ult [facility] [address] [place] [address], [place] [phone] * CT Heart Calcium Scoring wo Contrast [...] SCCT, ACR and NASCI endorsed by the [place] [employer]. *ASCVD risk using the 10-year risk Pooled Cohort Equations. Reference: https://doi.org/10.1016/j.[email or web address] -------- FINAL REPORT -------- Dictated By: Jenn Cramer Dictated Date: 07/19/2024 12:06 ET Assigned Physician: Jenn Cramer Reviewed and Electronically Signed By: Jenn Cramer Signed Date: 07/19/2024 18:00 ET Workstation ID: [id number] Transcribed By: Self Edit Transcribed Date: 07/19/2024 [...] the 10-year risk Pooled Cohort Equations. Reference: https://doi.org/10.1016/j.[email or web address] -------- FINAL REPORT -------- Dictated By: Jenn Cramer Dictated Date: 07/19/2024 12:06 ET Assigned Physician: Jenn Cramer Reviewed and Electronically Signed By: Jenn Cramer Signed Date: 07/19/2024 18:00 ET Workstation ID: [id number] Transcribed By: Self Edit Transcribed Date: 07/19/2024 12:06 ET Raleigh Tamez MD IM CT PROCEDURES Final Resu lt * CT [...] Signed Date: 07/19/2024 13:55 ET Workstation ID: [id number] Transcribed By: Self Edit Transcribed Date: 07/19/2024 [...] It gives origin to diagonal and septal lead loader branches. Focal calcified and noncalcified eccentric plaques [...] caliber. It gives origin to diagonaland septal lead loader branches. Focal calcified and noncalcified eccentric plaques [...] Signed Date: 07/19/2024 13:55 ET Workstation ID: [id number] Transcribed By: Self Edit Transcribed Date: 07/19/2024 13:50 ET us Raleigh Tamez MD IMG CT PROCEDURES Final Resu lt * TERRY DEXA AXIAL SKELETON (01/02/2020 9:45 AM EDT) Anatomical Region Laterality Modality Mammography 01/02/2020 8:53 AM EDT Narrative 01/02/2020 9:45 AM EDT [facility] Diagnostic Imaging Department [address] [place] [address] Patient: ??TONJA,TRINIDAD A ?/Age/Sex: 1960 - 59 - F Unit#: ??[id number] ? Location/Status: ??SPDIMAM/REG CLI ? Mnemonic/Ordering Site: ??MAMDEXAAX/SPMAM Ordering Physician: ??NICKY NORTH MD Terry Dexa Axial Skeleton - 01/02/20 - 939 HISTORY: ??The patient is a 59-year-old postmenopausal [...] probability of hip fracture of 0.8%. Code 71080 Dictating Physician: ??ELO ADAIR MD Electronically Signed by: ??ELO ADAIR MD Dic Date/Time: ??01/02/2044 Sign date/Time: ??01/02/2045 Procedure Note Elo Adair MD - 05/21/2022 [facility] Diagnostic Imaging Department [address] [place] [address] [id number] Patient: TRINIDAD EVANGELISTA Jeri Stapleton./Age/Sex: 1960 - 59 - F Unit#: [id number] [facility]ing Site[facility] Ordering Physician: NICKY NORTH MD Terry Dexa [...] density of the femurs bilaterally is 0.984 gm/[id number] is 98% of that of young normals [...] probability of hip fracture of 0.8%. 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
--- OUTSIDE RECORDS SUMMARY | 2024-09-28 12:50 | XMS_ITS | Data Portability ---
Author Organization [place] - [facility], Allergy Address [address] [address] Care Team Providers Care Conveyor Belt Operator Name Role Phone OBDULIA HERMOSILLO Primary Care Provider Assessment Encounter Date Assessment Date Assessment LastModified by Organization Details LastModified Time 09/07/2024 09/07/2024 intermediate bilateral CI. Discomfort over the left magnet [...] Dr. Kam sent a message to the [facility] Cochlear [facility]plant [facility] and they will [...] performed cerumen removal and acted as scribe. Not available 09/07/2024 12:56:15 Plan of Treatment [...] Recorded Time Cochlear prosthesi s in situ 257757172 Active 2020 Cochlear implant status; Note: Date Diagnosed : 01/01/2021 9:28 AM (Z96.21) Not Available [facility] 4 03:23:24 Impacted cerumen of bilateral ears [id number] 33603 Active 2015 Impacted cerumen, bilateral ; Note: Date Diagnosed : 10/02/2015 3:35 PM (H61.23) Not Available [facility] 4 03:23:24 Sensorine ural hearing loss of bilateral ears 210766500 Active 2015 Sensorine ural hearing loss, bilateral ; Note: Date Diagnosed : 10/02/2015 3:35 PM (H90.3) Not Available [facility] 4 03:23:24 Impacted cerumen 27774784 Active 2013 Impacted cerumen; CMS Risk: low risk CMS Treatment : new problem (to examiner) : no additiona l workup planned Not Available [facility] 4 03:23:24 Pressure injury 0938035209 Active 2024 TESS KAM MD [address] [place] [address], [phone] , [facility] 5 12:55:12 Problem Notes None recorded. Procedures Surgical History Date Name Laterality Status Provider Name and Address Organization Details Recorded Time Cerumen removal without microscope bilat completed MONICA MONROE PA-C [address] [place] [address], [place], [address], [facility] 09/07/2024 10:01:17 Imaging Results None recorded. Procedure Notes None recorded. Medical Equipment None Reported. Allergies Allergen ID Allergen Name Allergen Category Reaction Reaction Severity Criticality Documentation Date Start Date Code Code System Note Provider Name and Address Organization Details Recorded Time 696261 Substance with morphinan structure and opioid receptor agonist mechanism of action (substanc e) medicatio n other Not available Not available 10/13/2023 12829 1813 SNOMED React ion: unkno wn, unspe cifie d;; Not Available [facility] 4 01:21:39 Medications Name Sig Start Date Stop Date Status Note LastModified by Organization Details LastModified Time andres ne hippurate 1 gram tablet active Medicati on ID: [id number] B rand Name: jordon lamberturat e Send Method: E-Prescr ibed Sub s Allowed: subs OK Medic ationGen ericName : jordon nj hippurat e Not Available Not Available Not Available magnesium 500 mg (as magnesium oxide) tablet Take 1 tablet every day by oral route. active Not Available Not Available No t Available cranberry fruit 400 mg capsule 2015 active Medicati on ID: [id number] B rand Name: cranberr y Send Method: E-Prescr ibed Sub s Allowed: subs OK Medic ationGen ericName : cranberr y Medica tion ID: [id number] B rand Name: cranberr y Send Method: E-Prescr ibed Sub s Allowed: subs OK Medic ationGen ericName : cranberr y Not Available Not Available Not Available omeprazol e 20 mg capsule,d elayed release 2015 active Medicati on ID: [id number] D uration Value: 30 Brand Name: omeprazo le Send Method: E-Prescr ibed Sub s Allowed: subs OK Speci al Instruct ion: TAKE ONE CAPSULE BY MOUTH EVERY DAY Medi cationGe nericNam e: omeprazo le Not Available Not Available Not Available ibuprofen 600 mg tablet 09/07 completed Medicati on ID: [id number] Du ration Value: 8 Brand Name: ibuprofe [...] mg capsule 09/07 completed Medicati on ID: [id number] B rand Name: therese wilson Send Method: E-Prescr ibed Sub s Allowed: subs OK Medic ationGen ericName : therese wilson Not Available Not Available Not Available Vitals Date Recorded Body height Body mass index (BMI) Body weight Provider Name and Address Organization Details Last Updated DateTime 09/07/2024 160.02 cm 29.1 kg/m2 93798.15 g Monica Porras [place] - [facility] 09/07/2024 09:23:50 Social History None recorded. Functional Status None recorded. Mental Status None recorded. Family History Nothing Reported. Medical History No medical history recorded. Gynecological HistoryNo gynecological history recorded. Obstetrics History GPAL:G 0 P 0 0 0 0 Past Encounters Encounter ID Performer Location Encounter Start Date Encounter Closed Date Diagnosis/Indication Diagnosis SNOMED-CT Code Diagnosis ICD10 Code Diagnosis Note [id number] TESS KAM MD [facility] [address] [address] 09/07/2024 09:15:45 09/07/2024 09:47:18 Sensorineural hearing loss of bilateral ears 324115598 H90.3 Cochlear p rosthesis in situ 888455873 Z96.21 Impacted c erumen of bilateral ears 0004257943 389145 H61.23 Pressure injury 93730814 07 L89.811 Health Concerns Section Related Observation LastModified by Organization Detai ls LastModified Time None Recorded Concern Status LastModified by Organization Details LastModified Time None Recorded Advance Directives Directive None Recorded Payers Encounter Date Sequence Insurance Name Policy Number Policy Munguia Covered Member ID Munguia Member ID Guarantor Name 09/07/2024 1 [place]ICARE [place] [employer] Trinidad Evangelista [id number] Trinidad Corriganorenzo 09/07/2024 2 [facility] INDEMNITY PLAN - [employer] [id number] Trinidad Corriganorenzo [id number] Trinidad Evangelista Notes Date Note Type Note [...] end of the evening. She was in [place] for the winter and does not have a care team down there. She has an appointment pending with Garrison Paz but not until October. She has changed her magnet strength from 3 to 2 and this has helped a bit. States her tells her the skin gets red in the evening. CIs are over five years old. TESS KAM MD [address] [place] [address], [place], [address], [place] - [facility] 09/07/2024 12:56:47 OBGyn Episode No OBEpisode recorded.
--- OUTSIDE RECORDS SUMMARY | 2024-09-28 12:50 | XMS_ITS | Encounter Summary ---
Author Organization [facility] Address [address] [place] [address] Care Team Providers Care Photoresist Printer Name Role Phone Terry Metcalf MD Primary Care Provider [phone] Reason for Visit * Reason Comments Hypotension Pt is on antihyperte nsives Encounter Details Date Type Department Care Team (Late st Contact Info) Description 09/22/2024 7:23 PM EDT - 09/22/2024 10:43 PM EDT Emergency [facility] Emergency [address] [place] [address] Macario Gary MD [address] [place] [id number] Hypotension, unspecified hypotension type (Primary Dx); Dehydration; Adverse effect of drug, initial encounter Discharge Disposition: Home or Self Care Social History Tobacco Use Types Packs/Day Years [...] AM EST documented as of this encounter Last Filed Vital Signs Vital Sign Reading Time Taken Comments Blood Pressure 110/71 09/22/2024 10:26 PM EDT Pulse 60 09/22/2024 10:26 PM EDT Temperature 36.6 ??C (97.9 ??F) 09/22/2024 8:42 PM ED T Respiratory Rate 16 09/22/2024 10:26 PM EDT Oxygen Saturation 100% 09/22/2024 10:26 PM EDT Inhaled Oxygen Concentration - - Weight 74.8 kg (165 lb) 09/22/2024 5:33 PM EDT Height 157.5 cm (5' 2 ) 09/22/2024 5:33 PM EDT Body Mass Index 30.18 09/22/2024 5:33 PM EDT documented in this encounter Functional Status * Are you [...] Jalil Cuellar RN documented in this encounter Discharge Instructions * Discharge Instructions* Macario Gary MD - 09/22/2024 10:26 PM EDT Continue to drink plenty of liquids. Monitor your blood pressure at home at least twice daily. Do not take metoprolol or Entresto. * Attachments The following attachments cannot be sent through Care Everywhere. * Dehydration (Taiwanese) * Hypotension (Taiwanese) documented in this encounter Medications at Time of Discharge CRANBERRY ORAL Take by mouth. fluticasone-umecl idinium-vilantero l (TRELEGY ELLIPTA) 100-62.5-25 mcg inhaler Inhale into the lungs. magnesium oxide (MAG-OX) 400 mg magnesium tablet Take 1 tablet (400 mg total) by mouth 1 (one) time each day. methenamine hippurate (HIPREX) 1 gram tablet Take 1 g by mouth daily 05/17/2019 MULTIVITAMIN ORAL Take by mouth. omeprazole (PriLOSEC) [address] capsule Take 20 mg by mouth 2 times daily. 10/16/2016 rosuvastatin (CRESTOR) 40 mg tablet Take 1 tablet (40 mg total) by mouth 1 (one) time each day. 90 each 3 08/01/2024 08/01/2025 rosuvastatin (CRESTOR) 40 mg tablet Take 1 tablet (40 mg total) by mouth 1 (one) time each day. 90 each 08/01/2024 08/01/2025 cholecalciferol (VITAMIN D-3) 1,250 mcg (50,000 unit) capsule Take by mouth. 09/27/2024 furosemide (LASIX) 20 mg tablet Take 1 tablet (20 mg total) by mouth 1 (one) time each day. 30 each 08/01/2024 09/27/2024 metoprolol succinate (TOPROL-XL) 25 mg 24 hr tablet Take 0.5 tablets (12.5 mg total) by mouth 1 (one) time each day. Do not crush or chew. 45 each 1 06/17/2024 09/27/2024 rosuvastatin (CRESTOR) 5 mg tablet Take 1 tablet (5 mg total) by mouth 1 (one) time each day. 09/27/2024 sacubitriL-valsar vega (ENTRESTO) 24-26 mg per tablet Take 1 tablet by mouth 2 (two) times a day. 60 each 11 08/01/2024 09/27/2024 UNABLE TO FIND Take by mouth. Med Name: Calcium Carb-Cholecal ciferol (CALCIUM 1000 + D OR) 09/27/2024 documented as of this encounter Discharge Disposition Disposition Code Departure Means Destination Comment s Home or Self Care Pt A&Ox3 at discharge. Pt advised to follow up with PCP. Pt advised to return with worsening symptoms. Pt with a balanced and steady gait at discharge. documented in this encounter Progress Notes * Mónica Jacobs RN - 09/22/2024 5:29 PM EDT Pt had a low bp yesterday at a drs office yesterday and went to [facility] and held her htn meds today. Today pt reports her bp 80/40 . Pt reports she also has gen weakness lt headedness nausea and haddiarrhea today. No sob no cp documented in this encounter Plan of Treatment Upcoming Encounters Date Type Department Care Team (Late st Contact Info) Description 10/04/2024 1:10 PM EDT Office Visit [facility] [address] [place] [address] Gracy Lira PA [address] [place] [address] 10/25/2024 1:40 PM EDT Office Visit [facility] - [address] [place] [address] Gracy Lira PA [address] [place] [address] documented as of this encounter Procedures Procedure Name Priority Date/Time Associated Diagnosis Comments TROPONIN I HIGH SENSITIVITY STAT 09/22/2024 7:57 PM EDT ECG 12-LEAD STAT 09/22/2024 7:48 PM EDT XR CHEST 2 VIEWS STAT 09/22/2024 6:01 PM EDT TROPONIN I HIGH SENSITIVITY STAT 09/22/2024 5:53 PM EDT CBC WITH AUTO DIFFERENTIAL STAT 09/22/2024 5:53 PM EDT CBC AND DIFFERENTIAL STAT 09/22/2024 5:53 PM EDT B-TYPE NATRIURETIC PEPTIDE STAT 09/22/2024 5:53 PM EDT MAGNESIUM STAT 09/22/2024 5:53 PM EDT LIPASE STAT 09/22/2024 5:53 PM EDT COMPREHENSIVE METABOLIC PANEL STAT 09/22/2024 5:53 PM EDT ECG 12-LEAD STAT 09/22/2024 5:46 PM EDT documented in this encounter Results * Troponin I high sensitivity (09/22/2024 7:57 PM EDT) [facility] High Sensitivity Troponin I 24 <=54 ng/L LAB CHEMISTRY METHOD 09/22/2024 8:35 PM EDT [facility] Blood Venous blood specimen / Unknown Venipuncture / Unknown 09/22/2024 7:57 PM EDT 09/22/2024 8:04 PM EDT Narrative [facility] - 09/22/2024 8:35 PM EDT High levels of biotin in samples may falsely decrease hsTroponin values. ??Use caution when interpreting hsTroponin results in patients taking biotin who exhibit renal impairment (eGFR <60) or in patients taking more than 20 mg/day of biotin. us Macario Gary MD LAB BLOOD ORDERABLES Final Res ult [facility] [address] [place] [address], * ECG 12 lead (09/22/2024 7:48 PM EDT) Ventricular Rate ECG 57 BPM GEMUSE Atrial Rate 57 BPM GEMUSE P-R Interval 296 ms GEMUSE QRS Duration 172 ms GEMUSE Q-T Interval 500 ms GEMUSE QTc 486 ms GEMUSE P Wave [place] 52 degrees GEMUSE R [place] -41 degrees GEMUSE T [place] 97 degrees GEMUSE ECG Interpretation Sinus bradycardia with 1st degree A-V block with frequent Premature ventricular complexes Left axis deviation Left bundle branch block Abnormal ECG When compared with ECG of 22-SEP-2024 17:46, (unconfirmed) No significant change was found Confirmed by Nai BRANHAM JAMES ([id number]) on 09/23/2024 3:29:33 PM GEMUSE 09/22/2024 7:48 PM EDT 09/23/2024 3:29 PM EDT us Macario Gary MD ECG ORDERABLES Final Result [id number] * XR Chest 2 Views (09/22/2024 6:01 [...] Signed Date: 09/23/2024 08:24 ET Workstation ID: [id number] Transcribed By: Self Edit Transcribed Date: 09/23/2024 [...] Signed Date: 09/23/2024 08:24 ET Workstation ID: [id number] Transcribed By: Self Edit Transcribed Date: 09/23/2024 08:23 ET Macario Gary MD IMG XR PROCEDURES Final Result * CBC auto differential (09/22/2024 5:53 PM EDT) WBC 5.7 4.8 - 10.8 K/mcL LAB HEMETOLOGY METHOD 09/22/2024 6:18 PM EDT [facility] RBC 4.20 3.80 - 4.80 M/mcL LAB HEMETOLOGY METHOD 09/22/2024 6:18 PM EDT [facility] Hemoglobin 12.5 11.5 - 16.0 g/dL LAB HEMETOLOGY METHOD 09/22/2024 6:18 PM EDT [facility] Hematocrit 38.3 35.0 - 47.0 % LAB HEMETOLOGY METHOD 09/22/2024 6:18 PM EDT [facility] MCV 91.2 79.0 - 98.0 FL LAB HEMETOLOGY METHOD 09/22/2024 6:18 PM EDT [facility] MCH 29.8 27.0 - 32.0 pcg LAB HEMETOLOGY METHOD 09/22/2024 6:18 PM EDT [facility] MCHC 32.6 32.0 - 37.0 g/dL LAB HEMETOLOGY METHOD 09/22/2024 6:18 PM EDT [facility] RDW 12.4 11.0 - 15.0 % LAB HEMETOLOGY METHOD 09/22/2024 6:18 PM EDT [facility] Platelets 159 130 - 400 K/mcL LAB HEMETOLOGY METHOD 09/22/2024 6:18 PM EDT [facility] MPV 10.4 7.0 - 11.0 FL LAB HEMETOLOGY METHOD 09/22/2024 6:18 PM EDT [facility] NRBC 0.0 <1.0 % LAB HEMETOLOGY METHOD 09/22/2024 6:18 PM EDT [facility] NRBC Absolute 0.00 <0.10 K/mcL LAB HEMETOLOGY METHOD 09/22/2024 6:18 PM EDT [facility] Neutrophils Relative 70.8 % LAB HEMETOLOGY METHOD 09/22/2024 6:18 PM EDT [facility] Lymphocytes Relative 22.0 % LAB HEMETOLOGY METHOD 09/22/2024 6:18 PM EDT [facility] Monocytes Relative 6.8 % LAB HEMETOLOGY METHOD 09/22/2024 6:18 PM EDT [facility] Eosinophils Relative 0.0 % LAB HEMETOLOGY METHOD 09/22/2024 6:18 PM EDT [facility] Basophils Relative 0.2 % LAB HEMETOLOGY METHOD 09/22/2024 6:18 PM EDT [facility] Immature Granulocytes Relative 0.2 % LAB HEMETOLOGY METHOD 09/22/2024 6:18 PM EDT [facility] Neutrophils Absolute 4.06 1.50 - 7.00 K/mcL LAB HEMETOLOGY METHOD 09/22/2024 6:18 PM EDT [facility] Lymphocytes Absolute 1.26 1.00 - 5.00 K/mcL [facility] Monocytes Absolute 0.39 0.20 - 1.00 K/mcL LAB HEMETOLOGY METHOD 09/22/2024 6:18 PM EDT [facility] Eosinophils Absolute 0.00 0.00 - 0.50 K/mcL LAB HEMETOLOGY METHOD 09/22/2024 6:18 PM [facility] Basophils Absolute 0.01 0.00 - 0.20 K/mcL LAB HEMETOLOGY METHOD 09/22/2024 6:18 PM EDT [facility] Immature Granulocytes Absolute 0.01 0.00 - 0.03 K/mcL LAB HEMETOLOGY METHOD 09/22/2024 6:18 PM [facility] Blood Venous blood specimen / Unknown Venipuncture / Unknown 09/22/2024 5:53 PM EDT 09/22/2024 6:12 PM EDT Macario Gary MD LAB BLOOD ORDERABLES Final Res ult [facility] [address] [place] [address], [place] [phone] * (ABNORMAL) B-type natriuretic peptide (09/22/2024 5:53 PM EDT) Pathologist [facility] BNP 149(H) <=100 pcg/mL LAB CHEMISTRY METHOD 09/22/2024 7:05 PM EDT [facility] Blood Venous blood specimen / Unknown Venipuncture / Unknown 09/22/2024 5:53 PM EDT 09/22/2024 6:12 PM EDT Macario Gary MD LAB BLOOD ORDERABLES Final Res ult Performing Organization Address [facility]/ZIP Co de Phone Number [facility] [address] [place] [address], * Magnesium (09/22/2024 5:53 PM EDT) Pathologist [facility] Magnesium 2.1 1.9 - 2.6 mg/dL LAB CHEMISTRY METHOD 09/22/2024 6:44 PM EDT [facility] Blood Venous blood specimen / Unknown Venipuncture / Unknown 09/22/2024 5:53 PM EDT 09/22/2024 6:12 PM EDT Macario Gary MD LAB BLOOD ORDERABLES Final Res ult [facility] [address] [place] [address], [place] [phone] * Lipase (09/22/2024 5:53 PM EDT) Pathologist [facility] Lipase 30 13 - 75 unit/L LAB CHEMISTRY METHOD 09/22/2024 6:44 PM EDT [facility] Blood Venous blood specimen / Unknown Venipuncture / Unknown 09/22/2024 5:53 PM EDT 09/22/2024 6:12 PM EDT us Macario Gary MD LAB BLOOD ORDERABLES Final Res ult [facility] [address] [place] [address], [place] [phone] * (ABNORMAL) Comprehensive metabolic panel (09/22/2024 5:53 PM EDT) Sodium 139 133 - 145 mmol/L LAB CHEMISTRY METHOD 09/22/2024 6:44 PM [facility] Potassium 4.5 3.5 - 5.5 mmol/L LAB CHEMISTRY METHOD 09/22/2024 6:44 PM [facility] Comment:Hemolysis present Chloride 108 96 - 110 mmol/L LAB CHEMISTRY METHOD 09/22/2024 6:44 PM [facility] CO2 29 21 - 32 mmol/L LAB CHEMISTRY METHOD 09/22/2024 6:44 PM [facility] Anion Gap 2(L) 3 - 11 LAB CHEMISTRY METHOD 09/22/2024 6:44 PM [facility] Glucose 86 70 - 100 mg/dL LAB CHEMISTRY METHOD 09/22/2024 6:44 PM [facility] BUN 22 5 - 25 mg/dL LAB CHEMISTRY METHOD 09/22/2024 6:44 PM [facility] Creatinine 0.86 0.50 - 1.10 mg/dL LAB CHEMISTRY METHOD 09/22/2024 6:44 PM [facility] eGFR 75 >=60 mL/min/1. 73m2 LAB CHEMISTRY METHOD 09/22/2024 6:44 PM [facility] Comment:Calculation based on the??Chronic Kidney Disease Epidemiology Collaboration (CKD-EPI) equation refit??without adjustment for race. BUN/Creatinine Ratio 25.6 LAB CHEMISTRY METHOD 09/22/2024 6:44 PM EDT [facility] Calcium 9.6 8.5 - 10.5 mg/dL LAB CHEMISTRY METHOD 09/22/2024 6:44 PM EDT [facility] AST (SGOT) 24 10 - 42 unit/L LAB [facility]STRY [facility] ALT (SGPT) 26 10 - 60 unit/L LAB CHEMISTRY METHOD 09/22/2024 6:44 PM EDT [facility] Alkaline Phosphatase 81 42 - 121 unit/L LAB CHEMISTRY METHOD 09/22/2024 6:44 PM EDT [facility] Total Protein 6.4 6.0 - 8.0 g/dL LAB CHEMISTRY METHOD 09/22/2024 6:44 PM EDT [facility] Albumin 3.3 3.2 - 5.0 g/dL LAB CHEMISTRY METHOD 09/22/2024 6:44 PM EDT [facility] Total Bilirubin 1.0 0.0 - 1.4 mg/dL LAB CHEMISTRY METHOD 09/22/2024 6:44 PM EDT [facility] Blood Venous blood specimen / Unknown Venipuncture / Unknown 09/22/2024 5:53 PM EDT 09/22/2024 6:12 PM EDT us Macario Gary MD LAB BLOOD ORDERABLES Final Res ult [facility] [address] [place] [address], * Troponin I high sensitivity (09/22/2024 5:53 PM EDT) High Sensitivity Troponin I 22 <=54 ng/L LAB CHEMISTRY METHOD 09/22/2024 6:41 PM EDT [facility] Blood Venous blood specimen / Unknown Venipuncture / Unknown 09/22/2024 5:53 PM EDT 09/22/2024 6:12 PM EDT Narrative [facility] - 09/22/2024 6:41 PM EDT High levels of biotin in samples may falsely decrease hsTroponin values. ??Use caution when interpreting hsTroponin results in patients taking biotin who exhibit renal impairment (eGFR <60) or in patients taking more than 20 mg/day of biotin. us Macario Gary MD LAB BLOOD ORDERABLES Final Res ult Performing Organization Address City/[facility]/ZIP Co de Phone Number [facility] [address] [place] [address], [place] [phone] * ECG 12 lead (09/22/2024 5:46 PM EDT) Ventricular Rate ECG 64 BPM GEMUSE Atrial Rate 64 BPM GEMUSE P-R Interval 298 ms GEMUSE QRS Duration 170 ms GEMUSE Q-T Interval 474 ms GEMUSE QTc 489 ms GEMUSE P Wave [place] 64 degrees GEMUSE R [place] -48 degrees GEMUSE T [place] 99 degrees GEMUSE ECG Interpretation Sinus rhythm with 1st degree A-V block with occasional Premature ventricular complexes Left axis deviation Left bundle branch block Abnormal ECG When compared with ECG of 28-JUL-2022 17:35, Premature ventricular complexes are now Present Confirmed by Nai BRANHAM JAMES ([id number]) on 09/23/2024 3:24:09 PM GEMUSE 09/22/2024 5:46 PM EDT 09/23/2024 3:24 PM EDT us Macario Gary MD ECG ORDERABLES Final Result Performing Organization Address [facility] Co de Phone Number GEMUSE documented in this encounter Visit Diagnoses Diagnosis Hypotension, unspecified hypotension type- Primary Dehydration Adverse effect of drug, initial encounter documented in this encounter Administered Medications Inactive Administered Medications - up to 3 most recent administrations Medication Order MAR Action Action Date Dose Rate Site sodium chloride 0.9 % bolus 1,000 mL 1,000 mL, intravenous, at 1,000 mL/hr, Administer over 1 Hours, Once, On Alexa 09/22/24 at 1945, For 1 dose Rate/Dose Verify 09/22/2024 9:09 PM EDT 1000 mL/hr New Bag 09/22/2024 8:00 PM EDT 1,000 mL 1000 mL/hr documented in this encounter Active and Recently Administered Medications Times are shown in EDT. Scheduled Medication Order 09/20/2024 09/21/2024 09/22/2024 sodium chloride 0.9 % bolus 1,000 mL (COMPLETED) 1,000 mL, intravenous, at 1,000 mL/hr, Administer over 1 Hours, Once, On Alexa 09/22/24 at 1945, For 1 dose 1999 (New Bag - Prov ider: Kasandra Cuellar RN)210 (Rate/Dose Verify - Provider: Kasandra Cuellar RN)220 (Stopped - Provider: Kasandra Cuellar RN) documented in this encounter Care Teams Photoresist Printer Relationship Specialty Start Date End Date Terry Metcalf MD [address] [place] [address] PCP - General Internal Medicine 06/15/24 documented as of this encounter
--- OUTSIDE RECORDS SUMMARY | 2024-09-28 12:50 | XMS_ITS | Encounter Summary ---
Author Organization [facility] Address [address] [place] [address] Care Team Providers Care Therapeutic Consultant Name Role Phone Terry Metcalf MD Primary Care Provider [phone] Reason for Referral * Imaging (Emergency) - Authorized Specialty Diagnoses / Procedures Referred By Contac t Referred To Contact Cardiology Diagnoses Atrial fibrillation, unspecified type (CMS/HCC V24, CMS/HCC V28) Bradycardia PVC (premature ventricular contraction) Orthostatic hypotension Procedures Transthoracic echocardiogram (TTE) complete with PRN contrast, bubble, strain, and 3D order panel NJ TTE W 2D IMAGE COMPLETE W DOPPLER ECHO & COLOR FLOW DOPPLER ECHO NJ MYRIAM 2D COMPLETE W/CONTRAST OR W & WO CONTRAST WITH DOPPLER Gracy Dooley PA [address] [facility] [address] [place] [address] Phone: tel: fax: [facility] Referral ID Status Reason Start Date Expiration Date V isits Requested Visits Authorized [id number] Authorized 09/27/2024 09/27/2025 1 1 * Cardiac Stress Testing (Routine) - Authorized Specialty Diagnoses / Procedures Referred By Contac t Referred To Contact Cardiology Diagnoses Atrial fibrillation, unspecified type (CMS/HCC V24, CMS/HCC V28) Bradycardia PVC (premature ventricular contraction) Procedures Cardiac holter monitor (<= 48 hours) NJ ECG EXTERNAL UP TO 48 HOURS RECORDING NJ ECG EXTERNAL < 48 HOURS CONTINUOUS RECORDING/STORAGE R&I BY A PHYS/QHP NJ EXTERNAL ECG UP TO 48 HRS INCL RECORDING SCANNING ANLYS W REPORT Gracy Dooley PA [address] [place] [address] Phone: tel: fax: [facility] Referral ID Status Reason Start Date Expiration Date V isits Requested Visits Authorized [id number] Authorized 09/27/2024 09/27/2025 1 1 Reason for Visit * Reason Comments Hospital Follow-up Encounter Details Date Type Department Care Team (Late st Contact Info) Description 09/27/2024 3:10 PM EDT Office Visit [facility] [address] [place] [address] Gracy Dooley PA [address] [place] [address] Atrial fibrillation, unspecified type (CMS/HCC V24, CMS/HCC V28) (Primary Dx); Bradycardia; PVC (premature ventricular contraction); Orthostatic hypotension Social History Tobacco Use Types Packs/Day Years [...] Pulse 67 09/27/2024 3:43 PM EDT Temperature - - Respiratory Rate - - Oxygen Saturation 97% 09/27/2024 3:05 PM EDT Inhaled Oxygen Concentration - - Weight 77.6 kg (171 lb) 09/27/2024 3:05 PM EDT Height 157.5 cm (5' 2 ) 09/27/2024 3:05 PM EDT Body Mass Index 31.28 09/27/2024 3:05 PM EDT documented in this encounter Functional [...] Jalil Cuellar RN documented in this encounter Ordered Prescriptions Prescription Sig Dispense Quantity Refills Last Filled Start Date End Date midodrine (PROAMATINE) 2.5 mg tablet Take 1 tablet (2.5 mg total) by mouth 3 (three) times a day before meals. 90 each 09/28/2024 10/28/2024 documented in this encounter Progress Notes * BIANKA Clement - 09/27/2024 3:10 PM EDT Please call with any questions or concerns Gracy Dooley PA-C [phone] [facility] [address] [place] [id number] Wear 48 hour Holter to rule out high degree heart block, prolonged pauses, or slowing contributing to your symptoms With your low BP, cardiomyopathy, LBBB bradycardia may benefit from cardiac resynchrony with BI pacemaker versus bi V defibrillator Start midodrine 2.5 mgs three times a day - take as soon as you get up, then 3- 4 hours later , then 4 or 5 pm monitor BP at home after 10 mins of rest , if after 2 days BP still low increase midodrine to 5 mgs three times a day * BIANKA Clement - 09/27/2024 3:10 PM EDTAddended by: GRACY DOOLEY on: 09/27/2024 04:31 PM Modules accepted: Orders * BIANKA Clement - 09/27/2024 3:10 PM EDTAddended by: GRACY DOOLEY on: 09/28/2024 09:41 AM Modules accepted: Orders * BIANKA Clement - 09/27/2024 3:10 PM EDT Images from the original note were not included. PRIMARY PROCESS MANAGER: Chai Gil MD PCP: Terry Metcalf MD Trinidad Wilcox Tonja is a 63 y.o. old female she was followed by [facility] she resides in [facility] for part of the year, in [place] the other half Past medical history- -Multivessel nonobstructive CAD by coronary CTA July 2024 [place] left main normal, LAD proximal 10 to 20% stenosis, left circumflex proximal calcified plaques 20%, RCA right dominant scattered multi focal calcified plaques in the proximal and mid segment 10 to 20% stenosis -NICM - HFrEF -started on Entresto with continued Toprol and lasix prn -2 evaluations in the ER last week for bradycardia and hypotension Toprol and Entresto were discontinued. -PAF -briefly on Amiodarone for suppression short term with stopped because of bradycardia. July, underwent A-fib ablation by PVI, focal ablation of A-fib flutter posterior roofline, cavotricuspid isthmus dependent flutter ablation. Chads vasc score 2 gender and age -Left bundle branch block, bradycardia, first degree AVB NJ interval 260 ms -Dyslipidemia -Myotonic dystrophy -NOA compliant with CPAP Cardiac testing -Echo Jun 2024 [place] - EF 35 to 40% inferior lateral wall motion abnormality left atrium mildly dilated right ventricle normal size and function mild tricuspid regurgitation normal septal wall thickness -Echo 03/2024 PVC LVEF 30-35% .Global hypokenensis inferior lateral akineasis compared to an echo in 2020 the LVEF has declined. Mild LVH. -Regadenosine Nuclear Stress 05/2024 : no evidence of ischemia or infarct . LVEF 42%With stress and46% at rest. She presents today for evaluation of her cardiomyopathy. She complains of fatigue, lack of energy, weakness, lightheadedness with position changes, associated nausea accompanying lightheadedness, trace lower leg edema, chronic shortness of breath with climbing 1 flight of stairs, occasional orthopnea. She had tolerated low-dose beta-marco and Entresto for 3 months using Lasix as needed which was rare. She returned from [place] September 04 about 10 days ago had a GI illness with nausea vomiting and diarrhea noting symptomatic hypotension but continued with medications. She was evaluated by pulmonary as a routine office visit and sent to [facility] beta-marco and Entresto were discontinued she was given IV fluids and sent home. She then presented 2 days later to [facility] with hypotension given IV fluids and sent home. She denies any new medications, drug or alcohol use. Is quite frustrated with her decline over the last several weeks. ACTIVE MEDICATIONS: Outpatient Medications Marked as Taking for the 09/27/24 encounter (Office Visit) with BIANKA Clement Medication Sig Dispense Refill CRANBERRY ORAL Take by mouth. jufwmuvcjcj-mykhyjxzjmop-oxwmwgvaif (TRELEGY ELLIPTA) 100-62.5-25 mcg inhaler Inhale into the lungs. magnesium oxide (MAG-OX) 400 mg magnesium tablet Take 1 tablet (400 mg total) by mouth 1 (one) timeeach day. methenamine hippurate (HIPREX) 1 gram tablet Take 1 g by mouth daily MULTIVITAMIN ORAL Take by mouth. omeprazole (PriLOSEC) [address] capsule Take 20 mg by mouth 2 times daily. rosuvastatin (CRESTOR) 40 mg tablet Take 1 tablet (40 mg total) by mouth 1 (one) time each day. 90 each 3 ALLERGIES: Allergies Allergen Reactions Adhesive Tape-Silicones Rash patient has skin rash w adhesive Fentanyl Hives Hydromorphone Hives Levorphanol Hives Opioids - Morphine Analogues Hives and Other Substance with morphinan structure and opioid receptor agonist mechanism of action (substance) Oxycodone Hives Tramadol severe whole body itching Hydrocodone-Acetaminophen Rash Morphine Hives and Rash Oxycodone-Acetaminophen Rash FAMILY HISTORY: No family history on file. SOCIAL HISTORY: Social History Tobacco Use Smoking status: Former Smokeless tobacco: Never Substance Use Topics Alcohol use: Yes PHYSICAL EXAM: Blood pressure 100/60, pulse 67, height 1.575 m (62 ), weight 77.6 kg (171 lb), SpO2 97%. Body mass index is 31.28 kg/m??. Physical Exam Constitutional: General: She is not in acute distress. Appearance: She is not diaphoretic. Comments: Overweight fatigued appearing, hard of hearing wears cochlear implant Eyes: Pupils: Pupils are equal, round, and reactive to light. Neck: Vascular: No carotid bruit. Cardiovascular: Rate and Rhythm: Regular rhythm. Bradycardia present. Heart sounds: Normal heart sounds. Pulmonary: Breath sounds: Normal breath sounds. Abdominal: Palpations: Abdomen is soft. Musculoskeletal: General: No swelling. Cervical back: No rigidity. Skin: General: Skin is warm and dry. Coloration: Skin is not jaundiced. Neurological: General: No focal deficit present. Mental Status: She is alert and oriented to person, place, and time. Psychiatric: Mood and Affect: Mood normal. EKG: Sinus bradycardia with a first-degree AV block NJ interval 270 ms, unifocal frequent PVCs and a left bundle branch block with a QRS duration of 160 ms TESTING: Component Latest Ref Rng 09/22/2024 Auto WBC 4.8 - 10.8 K/mcL 5.7 RBC 3.80 - 4.80 M/mcL 4.20 Hemoglobin 11.5 - 16.0 g/dL 12.5 Hematocrit 35.0 - 47.0 % 38.3 MCV 79.0 - 98.0 FL 91.2 MCH 27.0 - 32.0 pcg 29.8 MCHC 32.0 - 37.0 g/dL 32.6 RDW 11.0 - 15.0 % 12.4 Platelets 130 - 400 K/mcL 159 MPV 7.0 - 11.0 FL 10.4 NRBC <1.0 % 0.0 NRBC Absolute <0.10 K/mcL 0.00 Neutrophils Relative % 70.8 Lymphocytes Relative % 22.0 Monocytes Relative % 6.8 Eosinophils Relative % 0.0 Basophils Relative % 0.2 Immature Granulocytes Relative % 0.2 Neutrophils Absolute 1.50 - 7.00 K/mcL 4.06 Lymphocytes Absolute 1.00 - 5.00 K/mcL 1.26 Monocytes Absolute 0.20 - 1.00 K/mcL 0.39 Eosinophils Absolute 0.00 - 0.50 K/mcL 0.00 Basophils Absolute 0.00 - 0.20 K/mcL 0.01 Immature Granulocytes Absolute 0.00 - 0.03 K/mcL 0.01 Sodium 133 - 145 mmol/L 139 Potassium 3.5 - 5.5 mmol/L 4.5 Chloride 96 - 110 mmol/L 108 CO2 21 - 32 mmol/L 29 Anion Gap 3 - 11 2 (L) Glucose 70 - 100 mg/dL 86 BUN 5 - 25 mg/dL 22 Creatinine 0.50 - 1.10 mg/dL 0.86 Calculated GFR >=60 mL/min/1.73m2 75 BUN/Creatinine Ratio 25.6 Calcium 8.5 - 10.5 mg/dL 9.6 AST (SGOT) 10 - 42 unit/L 24 ALT (SGPT) 10 - 60 unit/L 26 Alkaline Phosphatase 42 - 121 unit/L 81 Total Protein 6.0 - 8.0 g/dL 6.4 Albumin 3.2 - 5.0 g/dL 3.3 Total Bilirubin 0.0 - 1.4 mg/dL 1.0 High Sensitivity Troponin I <=54 ng/L 24 Lipase 13 - 75 unit/L 30 Magnesium 1.9 - 2.6 mg/dL 2.1 B Type Natriuretic Peptide <=100 pcg/mL 149 (H) Legend: (L) Low (H) High PAST MEDICAL HISTORY: Patient Active Problem List Diagnosis Date Noted Coronary artery disease involving [place] coronary artery with angina pectoris ([facility] V24) 08/01/2024 CHF (congestive heart failure), NYHA class I ([facility] V24, [facility] V28) 06/15/2024 Mixed hyperlipidemia 06/15/2024 NOA (obstructive sleep apnea) 04/06/2024 SOB (shortness of breath) 04/06/2024 Left bundle branch block (LBBB) 02/08/2019 Atrial fibrillation ([facility] V24, [facility] V28) 02/15/2018 Myotonic muscular dystrophy ([facility] V24, [facility] V28) 07/13/2009 As per AHA guidelines and previously established plan of care by Dr. Ba Cabello MD we discussedthe following today: ASSESSMENT/PLAN: Problem List Items Addressed This Visit Atrial fibrillation ([facility] V24, [facility] V28) - Primary Relevant Orders ECG 12 lead (Completed) Cardiac holter monitor (<= 48 hours) Other Visit Diagnoses Bradycardia Relevant Orders ECG 12 lead (Completed) Cardiac holter monitor (<= 48 hours) PVC (premature ventricular contraction) Relevant Orders ECG 12 lead (Completed) Cardiac holter monitor (<= 48 hours) NICM, LBBB > 160 ms, frequent PVCs, NYHA class II- III , [place]-dose Entresto with low-dose beta- marco having symptomatic hypotension that is persistent despite stopping medication and hydration. Patient is consuming at least 64 ounces of fluid daily makes position changes slowly continues with home blood pressure systolic 70- 100. She agrees to a 48-hour Holter to assess PVC burden, rule out any arrhythmias or high degree heart block that could be contributing to her lightheadedness. Would benefit from [employer] -pacemaker versus defibrillator. Is unable to obtain cardiac MRI due to cochlear implant. Echo ordered in the next week toaid in decision making. For symptomatic hypotension midodrine 2.5 mg 3 times daily to start with instructions were written out for her, if after 2 days continues to have hypotension she can increase to 5 mg 3 times a day a.m., 3 hours later and then 4 hours thereafter not before bedtime. She will follow-up in a week or sooner if clinically indicated. Nonobstructive CAD continues aspirin. PAF prior ablation no longer anticoagulated. No perceived recurrence. Spent greater than 50 minutes reviewing pertinent history, current symptomology, treatment plan andanswering all questions. Thank you for allowing us to participate in the care of this patient. Today's documentation was made using voice recognition software.This note may contain grammatical errors secondary to this software. Cosigned by Ba Cabello MD at 09/27/2024 4:30 PM EDT documented in this encounter Plan of Treatment Upcoming Encounters Date Type Department Care Team (Late st Contact Info) Description 10/04/2024 1:10 PM EDT Office Visit [facility] [address] [place] [address] Gracy Dooley PA [address] [place] [address] 10/25/2024 1:40 PM EDT Office Visit [facility] [address] [place] [address] Gracy Dooley PA [address] [place] [address] Pending Results Name Type Priority Associated Diagnoses Date /Time Cardiac holter monitor (<= 48 hours) Cardiac Services Routine Atrial fibrillation, unspecified type (CMS/HCC V24, CMS/HCC V28) Bradycardia PVC (premature ventricular contraction) 09/27/2024 3:39 PM EDT Scheduled Orders Name Type Priority Associated Diagnoses Orde r Schedule Cardiac holter monitor (<= 48 hours) Cardiac Services Routine Atrial fibrillation, unspecified type (CMS/HCC V24, CMS/HCC V28) Bradycardia PVC (premature ventricular contraction) Expected: 09/27/2024, Expires: 09/27/2025 Transthoracic echocardiogram (TTE) complete with PRN contrast, bubble, strain, and 3D order panel Echocardiography STAT Atrial fibrillation, unspecified type (CMS/HCC V24, CMS/HCC V28) Bradycardia PVC (premature ventricular contraction) Orthostatic hypotension Expected: 10/04/2024, Expires: 09/27/2025 documented as of this encounter Procedures Procedure Name Priority Date/Time Associated Diagnosis Comments ECG 12-LEAD Routine 09/27/2024 4:29 PM EDT Atrial fibrillation, unspecified type (CMS/HCC V24, CMS/HCC V28) Bradycardia PVC (premature ventricular contraction) documented in this encounter Results * ECG 12 lead (09/27/2024 4:29 PM EDT) Ventricular Rate ECG 59 BPM GEMUSE Atrial Rate 59 BPM GEMUSE P-R Interval 270 ms GEMUSE QRS Duration 162 ms GEMUSE Q-T Interval 474 ms GEMUSE QTc 469 ms GEMUSE P Wave [place] 85 degrees GEMUSE R [place] -46 degrees GEMUSE T [place] 88 degrees GEMUSE ECG Interpretation Sinus bradycardia [...] us Gracy CARLTON ECG ORDERABLES Final Result GEMUSE documented in this encounter Visit Diagnoses Diagnosis Atrial fibrillation, unspecified type (CMS/HCC V24, CMS/HCC V28)- Primary Bradycardia Other specified cardiac dysrhythmias PVC (premature ventricular contraction) Other premature beats Orthostatic hypotension documented in this encounter Discontinued Medications Medication Sig Discontinue Reason Start Date End Da te cholecalciferol (VITAMIN D-3) 1,250 mcg (50,000 unit) capsule Take by mouth. Therapy completed 09/27/2024 furosemide (LASIX) 20 mg tablet Take 1 tablet (20 mg total) by mouth 1 (one) time each day. Therapy completed 08/01/2024 09/27/2024 metoprolol succinate (TOPROL-XL) 25 mg 24 hr tablet Take 0.5 tablets (12.5 mg total) by mouth 1 (one) time each day. Do not crush or chew. Therapy completed 06/17/2024 09/27/2024 sacubitriL-valsartan (ENTRESTO) 24-26 mg per tablet Take 1 tablet by mouth 2 (two) times a day. Therapy completed 08/01/2024 09/27/2024 UNABLE TO FIND Take by mouth. Med Name: Calcium Carb-Cholecalciferol (CALCIUM 1000 + D OR) Therapy completed 09/27/2024 rosuvastatin (CRESTOR) 5 mg tablet Take 1 tablet (5 mg total) by mouth 1 (one) time each day. Formulary change 09/27/2024 documented as of this encounter Care Teams Therapeutic Consultant Relationship Specialty Start Date End Date Terry Metcalf MD [address] [place] [id number] PCP - General Internal Medicine 06/15/24 documented as of this encounter
--- OUTSIDE RECORDS SUMMARY | 2024-09-28 12:50 | XMS_ITS | Data Portability ---
Author Organization [facility], Home Service Address [address] [place] [address] Assessment No assessment recorded. Plan of Treatment Reminders Order Date Submit Date Provider Last Modified By Organization Details Last Modified Time Details Appointments None recorded. Lab urinalysis , dipstick 2018 019 [email or web address] [facility], [address] [facility], [address], [place], [address], 9 11:27:33 culture, urine 2018 019 NED Not available 9 07:55:23 Referral urologist referral 2018 019 jack North MD, [address] [facility], [place], [address], 9 08:35:02 Procedures None recorded. Surgeries None recorded. Imaging None recorded. Medication Orders Cipro 250 mg tablet 2018 019 [id number], [address] [place], [address], 9 10:34:33 Lomotil 2.5 mg-0.025 mg tablet 2018 019 INTERFACE [id number], [address] [place], [address], 9 14:13:56 Patient TargetsNo targets recorded. Patient Instructions Encounter Date Encounter Id Patient Instructions Last Modified By Organization Details Last Modified Time 12/01/2018 [id number] irritable bowel syndrome: care instructions Not available 12/01/2018 14:13:54 12/13/2018 [id number] constipation: ca re instructions [email or web address] Not available 12/13/2018 11:27:33 12/31/2018 [id number] thyroid nodules: care instructions Not available 12/31/2018 10:59:45 gastroesophageal reflux disease (GERD): care instructions Not available 12/31/2018 10:59:45 08/29/2019 [id number] pulse oximetry* [email or web address] Not available 08/29/2019 14:27:15 Reason for Referral Urologist Referral for Acute urinary tract infection Referring Physician: Mela [facility], Encounter Date: 12/13/2018 Results Created Date Observation Date Name Description Value Unit Range Abnormal Flag Note LastModifiedBy Organization Detail LastModifiedTime 12/14/19 19 12/13/2018 urina lysis , dipst ick Leukocytes Modera te Not Available [address], [address], 12/13/2018 11:05:56 12/14/19 19 12/13/2018 urina lysis , dipst ick Nitrite negati ve Not Available [address], [address], 12/13/2018 11:05:56 12/14/19 19 12/13/2018 urina lysis , dipst ick Urobilinogen .2 Not Available [facility] Internal [facility] [address], [place], [address], 12/13/2018 11:05:56 12/14/19 19 12/13/2018 urina lysis , dipst ick Protein Negati ve Not Available [address], [address], 12/13/2018 11:05:56 12/14/19 19 12/13/2018 urina lysis , dipst ick pH 6.0 Not Available [facility] Internal [address], [place], [address], 12/13/2018 11:05:56 12/14/1912/13/2018 urina lysis , dipst ick Blood Large Not Available [facility] [address] [facility] [address], [place], [address], 12/13/2018 11:05:56 12/14/1912/13/2018 urina lysis , dipst ick Specific [place] 1.010 Not Available [facility] [address] [facility] [address], [place], [address], 12/13/2018 11:05:56 12/14/1912/13/2018 urina lysis , dipst ick Ketone Negati ve Not Available [facility] [address] [facility] [address], [place], [address], 12/13/2018 11:05:56 12/14/1912/13/2018 urina lysis , dipst ick Bilirubin Negati ve Not Available [facility] [address] [facility] [address], [place], [address], 12/13/2018 11:05:56 12/14/1912/13/2018 urina lysis , dipst ick Glucose Negati ve Not Available [facility] [address] [facility] [address], [place], [address], 12/13/2018 11:05:56 12/14/1912/13/2018 urina lysis , dipst ick Color Yellow Not Available [facility] [address] [facility] [address], [place], [address], 12/13/2018 11:05:56 12/14/1912/13/2018 urina lysis , dipst ick Appearance Clear Not Available [facility] [address] [facility] [address], [place], [address], 12/13/2018 11:05:56 08/29/19 20 08/29/2019 pulse oxime try* Result 95 Not Available [facility] [address], [place], [address], 08/29/2019 14:07:18 01/01/20 19 12/27/2018 Bone Densi ty Repor t No observ ation record ed. Not Available 2018 12:14:39 02/23/20 19 02/21/2019 elect alis chapa am No observ ation record ed. Not Available 2018 08:39:17 03/31/20 19 03/31/2019 MAMMO , scree brenden, bilat eral No observ ation record ed. [facility] (Outpt Imaging) [address] [facility], [place], [address], 03/31/2019 19:41:32 06/15/19 20 06/15/2019 CT, abdom en + pelvi s, w/wo contr ast No observ ation record ed. [email or web address] [facility] Diagnosit Imaging Dept [address] [place], [address], 06/15/2019 16:43:48 01/02/20 20 01/02/2020 CT, bone quartz miner blasting al densi ty study , axial skele ton No observ ation record ed. [facility] Diagnosit Imaging Dept [address] [place], [address], 01/02/2020 11:29:25 01/09/20 20 01/02/2020 bone densi ty No observ ation record ed. [email or web address] Not Available 2019 09:57:01 01/28/20 21 01/27/2021 XR, chest , 2 view No observ ation record ed. [facility] Diagnosit Imaging Dept [address] [place], [address], 01/27/2021 21:35:55 01/28/20 21 01/27/2021 CT, angio gram, chest , w/ contr ast No observ ation record ed. [facility]osit Imaging Dept [address] [facility], [place], [address], 01/27/2021 21:36:20 Result Notes None recorded. Problems Name Problem SNOMED Code Status Onset Date Resolution Date Notes Provider Name and Address Organization Details Recorded Time Paroxysma l atrial fibrillat ion 353560694 Active 2017 sees cardio - dr. ernesto escalona Not Available [facility] 0 16:54:53 Thyroid nodule 329331218 Active 2017 sees endo - dr. cheek Not Available [facility] 0 16:54:53 Heterogen eously dense breast compositi on 916076964 Active 2017 sees ob - dr. vaz Not Available [facility] 0 16:54:53 Left bundle branch block 78980090 Active 2018 Not Available [facility] 0 16:54:53 Gastroeso phageal reflux disease 610976784 Active 2017 Not Available [facility] 0 16:54:53 Cochlear prosthesi s in situ 075653946 Active 2017 sees ENT - dr. 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 Not Available [facility] 0 16:54:53 Melanoma in situ of skin (clinical ) 672140712 Active 2017 sees derm - [place] derm left breast s/p excision Not Available [facility] 0 16:54:53 Problem Notes None recorded. Procedures Surgical History None recorded. Imaging Results Imaging Date Name Status LastModified by Organization Details LastModified Time 12/27/2018 Bone Density Report completed Infor mation not available 02/08/2019 12:14:39 02/21/2019 electrocardiogram completed Informa tion not available 02/23/2019 08:39:17 03/31/2019 MAMMO, screening, bilateral completed [address] (Outpt Imaging) [address], [place], [address], 03/31/2019 19:41:32 06/15/2019 CT, abdomen + pelvis, w/wo contrast completed [email or web address] [facility] Diagnosit Imaging Dept [address] [place], [address], 06/15/2019 16:43:48 01/02/2020 CT, bone mineral density study, axial skeleton completed [address] Diagnosit Imaging Dept [address] [place], [address], 01/02/2020 11:29:25 01/02/2020 bone density completed [email or web address] Information not available 01/10/2020 09:57:01 01/27/2021 XR, chest, 2 view completed [address] Diagnosit Imaging Dept [address] [place], [address], 01/27/2021 21:35:55 01/27/2021 CT, angiogram, chest, w/ contrast completed [address] [facility]osit [facility] Dept [address] [place], [address], 01/27/2021 21:36:20 Procedure Notes None recorded. Medical [...] Updated DateTime 0 160.02 cm 31.2 kg/m2 18962.2 6 g 61 /min 95 % 95 % 97.5 [degF] 122 mm[Hg] 76 mm[Hg] BIANKA DE LA GARZA [address] [place], [address] [place] [address] Internal Medicine 0 14:09:23 Date Recorded Body height Heart rate Oxygen saturation Oxygen saturation in Arterial blood by Pulse oximetry Systolic blood pressure Diastolic blood pressure Provider Name and Address Organization Details Last Updated DateTime 9 160.02 cm 64 /min 98 % 98 % 118 mm[Hg] 70 mm[Hg] Tonja Mcclure [facility] Internal [facility] 9 13:34:59 Date Recorded Body height Body mass index (BMI) Body weight Heart rate Oxygen saturation Oxygen saturation in Arterial blood by Pulse oximetry Body temperature Systolic blood pressure Diastolic blood pressure Provider Name and Address Organization Details Last Updated DateTime 9 160.02 cm 29.7 kg/m2 94171.4 4 g 57 /min 98 % 98 % 97.5 [degF] 100 mm[Hg] 82 mm[Hg] Kathie Douglas [facility] Internal [facility] 9 11:08:23 Date Recorded Body height Body mass index (BMI) Body weight Heart rate Oxygen saturation Oxygen saturation in Arterial blood by Pulse oximetry Systolic blood pressure Diastolic blood pressure Provider Name and Address Organization Details Last Updated DateTime 9 160.02 cm 29.4 kg/m2 57173.0 5 g 56 /min 98 % 98 % 100 mm[Hg] 68 mm[Hg] Radu Stoll, DO [address] [place], [address] [place] [address] Internal [facility] 9 10:36:47 Date Recorded Body height Body mass index (BMI) Body weight Heart rate Oxygen saturation Oxygen saturation in Arterial blood by Pulse oximetry Systolic blood pressure Diastolic blood pressure Provider Name and Address Organization Details Last Updated DateTime 9 160.02 cm 29.4 kg/m2 82610.0 5 g 54 /min 98 % 98 % 118 mm[Hg] 60 mm[Hg] Tonja Mcclure [facility] Internal [facility] 9 11:50:22 Social History Question Answer Notes LastModified by Organizat ion Details LastModified Time Tobacco Smoking Status Never Smoker Keesha newton [facility] Internal [facility] 09/28/2017 13:51:02 What Was The Date Of [...] virus, quadrivalent, preservative 8 completed Not Available [facility] 07/02/2019 02:14:52 Influenza, split virus, quadrivalent, preservative 9 completed Tonja newton [facility] 02/08/2019 11:51:27 zoster live 9 completed Tonja newton [facility] 02/08/2019 11:51:46 Influenza, split virus, quadrivalent, preservative 0 completed Tonja newton [facility] 03/02/2020 13:44:14 zoster, unspecified formulation 0 [facility] 08:08:55 Past Encounters Encounter ID Performer Location Encounter Start Date Encounter Closed Date Diagnosis/Indication Diagnosis SNOMED-CT Code Diagnosis ICD10 Code Diagnosis Note [id number] Monica Catalan NP, [address],[place] [address] 09/28/2017 13:44:41 09/28/2017 16:36:44 History of head injury 794529863 Z87.828 non focal exam Headache 86267333 R51 Gastric polyp 14989433 K 31.7 has f/u endoscopy with Dr. Renee next month Paroxysmal atrial fibrillation 462779323 I48.0 no current [id number] Monica Catalan NP, [facility] [address] [facility],[place] [address] 10/20/2017 09:27:32 10/20/2017 09:51:54 Impacted cerumen 24136570 H61.23 Headache 64151356 R51 improved, (-) CT, labs reviewed Recurrent cystitis 9481 N30.90 [id number] August NNAMDI Templeton [facility] [address] [facility] [place] [address] 02/02/2018 11:21:44 02/02/2018 12:52:42 Contact dermatitis caused by urushiol from Eastern poison sergio 362113618 L25.5 can try zanfel otc as well advise to wash all clothes, bedding, shoes that may have been in contact with sergio/oak/thomas mac Gastroesop hageal reflux disease 693756844 K21.9 [id number] [facility] Internal Medicine [address] [place] [address] [place] [address] 02/15/2018 09:11:35 02/15/2018 10:32:33 Adult health examination 453379232 Z00.00 Active or passive immunization 310125909 Z23 Increased frequency of urination 367440099 R35.0 Thoracic back pain 25743 8004 M54.6 Heterogene ously dense breast composition 437647038 R92.[address] milind Ta f asting glycemia 604699182 R73.01 [id number] [facility] Medicine [address] [place] [address] [place] [address] 03/22/2018 14:18:06 03/22/2018 14:49:47 Recurrent cystitis 506648773 N30.90 Paroxysmal atrial fibrillation 850116179 I48.0 Gastroesop hageal reflux disease 010719790 K21.9 [id number] [facility] [address] [place] [address] [place] [address] 12/01/2018 13:32:21 12/01/2018 14:30:35 Irritable bowel syndrome 23943129 K58.9 will start with lomotil and then consider also will need to start the fiber intake with a lot of H2O [id number] [facility] Medicine [address] [place] [address] [place] [address] 12/13/2018 10:56:57 12/13/2018 13:34:14 Constipation 79751246 K59.00 would recommend she d/c the lomotil continue fiber continue fluids has gi appt tomorrow -will discuss further with them Muscular dystrophy 24911 009 G71.00 has constipati on/diarrhe a intermitte ntly, but usually constipati on more than diarrhea Paroxysmal atrial fibrillation 853312354 I48.0 Acute urin janak tract infection 641871423 N39.0 recurrent uti-like sx without positive culture will treat empiricall y for uti was supposed to have urology consult but she says when she called for appt office said there was no referral i do have fax confirmati on of uro consult with dr north will resend order Thyroid nodule 154278633 E04.1 likely going to need thyroidect miguel angel sees endo and surgeon [id number] Radu Stoll DO [facility] [address] [facility],[place] [address] 12/31/2018 10:30:49 12/31/2018 11:32:33 Gastroesophageal reflux disease 474553774 K21.9 will be cont to have her take bid omeprazole as she has tried to go to qd but has gotten severe gerd at night Thyroid nodule 743219118 E04.1 will need to follow as she is almost ready to have removed will follow closely with endocrine Paroxysmal atrial fibrillation 480492958 I48.0 quiet and without breakthrou [id number] Radu Stoll DO [facility] [address] [facility],[place] [address] 02/08/2019 11:46:00 02/08/2019 13:12:40 Left bundle branch block 97630945 I44.7 discussed the results of cardiac work up Pain of left heel 195333 2929 945464 M79.672 bursitis told to get a gell pad for the heels and to wear at all times [id number] BIANKA DE LA GARZA [facility] Medicine [address] [facility],[place] [address] 08/29/2019 14:02:13 08/29/2019 15:02:29 Paroxysmal atrial fibrillation 374709224 I48.0 stable Upper resp iratory infection 88893301 J06.9 based on the patient's symptoms and [...] Munguia Member ID Guarantor Name 12/01/2018 1 [facility] INDEMNITY PLAN - [employer] [id number] Trinidad A Tonja [id number] Trinidad Tonja 12/13/2018 1 [facility] [employer]ITY [employer] - [employer] [id number] Trinidad A Tonja [id number] Trinidad Tonja 12/31/2018 1 [facility] [employer] [id number] Trin[place] A Tonja [id number] Trinidad Tonja 02/08/2019 1 [facility] IN[employer]MNITY PLAN - [employer] [id number] Trinidad A Tonja [id number] Trinidad Tonja 08/29/2019 1 [facility] (PP[facility] [id number] Trinidad A Tonja [id number] Trinidad Tonja Notes Date Note Type Note [...] 10 lbs recently Radu Stoll, DO [address] [facility], [place], [address], [facility] 12/01/2018 14:14:03 12/13/2018 text/html [...] rashes, or nail changes. NNAMDI Lala [address] [place], [address], [facility] Internal Medicine 12/13/2018 11:28:20 12/31/2018 text/html here for rechk i s essentially doing well relates that she hasd a quick visit with the GI was told she needed a egd she just had a recent egd last year for the same Radu Stoll DO [address] [place], [address], [facility] Internal Medicine 12/31/2018 11:02:03 02/08/2019 text/html discharged 10 da ys ago from [facility] for cp ro acs did well all lab neg and the nuclear stress test was negative pain has stopped since being in the ER that day no ekg changes no lab findings Radu Stoll DO [address] [place], [address], [facility] Internal Medicine 02/08/2019 12:14:45 08/29/2019 [...] chest congestion BIANKA DE LA GARZA [address] [place], [address], [facility] Internal Medicine 08/29/2019 14:27:34 OBGyn Episode No OBEpisode recorded.
--- OUTSIDE RECORDS SUMMARY | 2024-09-28 12:50 | XMS_ITS | Encounter Summary ---
Author [place] [address] Care Team Providers Care Carcass Washer Name Role Phone Terry Metcalf MD Primary Care Provider [phone] Reason for Visit * Reason Onset Date Comments [facility] ER 09/21/2024 Encounter Details Date Type Department Care Team (Late st Contact Info) Description 09/21/2024 Telephone [facility] - [facility] [address] [facility] [address] [place] [address] Kandi Smyth [facility] Social History Tobacco Use Types Packs/Day [...] as of this encounter Progress Notes * Gerri Malave RN - 09/22/2024 4:46 PM EDT Noted LM response in agreement with ER. * Gerri Malave RN - 09/22/2024 4:32 PM EDT Renetta. Spoke with with in the background. Home from [facility]. ReportsBP 74/63 -81/75. Weak, shaky. Diarrhea today. I advised ER for eval ? Dehydration. I advised he call when d/c to home to follow up. He stated driving her to [facility] ER. I tried to call report. Phone rang no pharmacy picking technician. Faxed information. * Marcela Garcia - 09/22/2024 4:08 PM EDT Patients [place]on states patient continues to have low blood pressure and she is not herself. He states it is an emergency and she needs assistance as soon as possible. He was informed a message is being placed to the nurse and he will receive a call back. Weston can be reached at [phone] * Jass Beckford - 09/22/2024 3:54 PM EDT Patient's called to book hospital follow up s/p [facility] as below. She has 10/25/24 OV with Soraya. Should we make this a hospital follow up/move up? * BIANKA Clement - 09/21/2024 2:48 PM EDT Call to ER - [facility] Dr. Delong will stop BB, IVF being given no sxs of infection, leukocytosis , will DC home isf sys BP > 90 and asym - if contiued low BP will stop entresto - polly aware to schedule [facility] hospital FU * Kandi Smyth [place] - 09/21/2024 2:[address] Sandoval from [facility] is requesting a call back the patient came to them todayfrom Pulmonary appointment with Hypotension and Bradycardia she is currently on Metoprolol succ 25 mg. She felt well enough to drive to the ER. Please call his cell [phone]. documented in this encounter Plan of Treatment Upcoming Encounters Date Type Department Care Team (Late st Contact Info) Description 10/04/2024 1:10 PM EDT Office Visit [facility] Cardiology [facility] - [address] [place] [address] Gracy Lira PA [address] [place] [address] 10/25/2024 1:40 PM EDT Office Visit [facility] - [address] [place] [address] Gracy Lira PA [address] [place] [address] documented as of this encounter Visit Diagnoses Not on filedocumented in this encounter Care Teams Carcass Washer Relationship Specialty Start Date End Date Terry Metcalf MD [address] [place] [address] PCP - General Internal Medicine 06/15/24 documented as of this encounter
--- OUTSIDE RECORDS SUMMARY | 2024-09-28 12:50 | XMS_ITS | Encounter Summary ---
Author Organization [employer] [place] [address] Care Team Providers Care Farm Machine Operator Name Role Phone Terry Metcalf MD Primary Care Provider [phone] Reason for Visit * Reason Onset Date Comments Med Refill 09/28/2024 Encounter Details Date Type Department Care Team (Late st Contact Info) Description 09/28/2024 Telephone [facility] - [facility] [address] [facility] [address] [place] [address] Yousif Gil MD [address] [facility] [address] [place] [address] Med Refill Social History Tobacco Use Types Packs/Day Years [...] of Assessment Author No 09/22/2024 8:01 PM Jalil Bowman RN * Are you blind or do [...] documented in this encounter Progress Notes * Joy Nath - 09/28/2024 8:38 AM EDT Trinidad called, she was seen by Gracy Lira yesterday and was prescribed midodrine 25 mg, 3 times a day. This script did not make it to her pharmacy. Please send to the [facility] on [address] Verena. documented in this encounter Plan of Treatment Upcoming Encounters Date Type Department Care Team (Late st Contact Info) Description 10/04/2024 1:10 PM EDT Office Visit [facility] - [address] [place] [address] Gracy Lira PA [address] [place] [address] 10/25/2024 1:40 PM EDT Office Visit [facility] - [facility] [address] [place] [address] Gracy Lira PA [address] [address] documented as of this encounter Visit Diagnoses Not on filedocumented in this encounter Care Teams Farm Machine Operator Relationship Specialty Start Date End Date Terry Metcalf MD [address] [place] [address] PCP - General Internal Medicine 06/15/24 documented as of this encounter
== END 2024-09-28 11:11 | disposition home or self-care (01) ==
LOC: HO.RESP 11:10
PROVIDERS: PCP Internal Medicine; Visit Provider Hospitalist
DX: Z13.89 Encounter for screening for other disorder (principal)

== ENCOUNTER 2025-01-17 07:48 | Outpatient (REF) | payer MEDICARE, OTHER, SELFPAY ==
--- OUTSIDE RECORDS SUMMARY | 2025-01-13 08:00 | XMS_ITS | Encounter Summary ---
Author Organization [facility] Address [address] [place] [address] [place] [phone] Phone Care Team Providers Care Dumpman Name Role Phone Terry Edgar MD Primary Care Provider Reason for Visit * Reason Comments Initial Visit Encounter Details Date Type Department Care Team (Latest Contact Info) Description 01/13/2025 8:00 AM EDT Telemedicine - audio only [facility] [address] [place] [address] Houston Mcfadden MD [address] [place] [address] [email or web address] Arrhythmia (Primary Dx) Social History Tobacco Use Types Packs/Day Years Used Date Smoking Tobacco: Former Cigarettes 0.5 20 1 968 - 1988 Smokeless Tobacco: Never Alcohol Use Standard Drinks/Week Comments Yes 0 (1 standard drink = 0.6 oz pur e alcohol) 1-2/week Education Answer Date Recorded Are you interested in more education? Not on suki e 10/12/2022 Are you concerned about learning? Not on file 10/12/2022 No 10/12/2022 No 10/12/2022 Digital Access Answer Date Recorded No 10/26/2022 No 10/26/2022 Reliable internet access at home? Not on file 10/26/2022 Device with a working camera? Not on file Comments Unknown Sex and Gender Information Value Date Recorded Sex Assigned at Female 11/16/2024 9:14 AM EDT Legal Sex Female 6:16 PM EST Gender Identity Female 11/16/2024 9:14 AM EDT Sexual Orientation Straight 11/16/2024 9: 14 AM EDT documented as of this encounter Progress Notes * Houston Mcfadden MD - 01/13/2025 8:00 AM EDT Cardiac EP Note Patient Name: Trinidad Evangelista Patient Date of Visit: 01/05/2025 Problem List: , second . 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 Divides time between [facility] and [place]. 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 Subsequently, unable to do any formal exercise.. Referred by Mayank Knutson, [place] neighbor of patient. Obstructive sleep apnea treated with CPAP. Reported AHI 25-45, did not necessarily feel better whenshe received CPAP, in terms of daily exhaustion. 03/2024, air leak, unable to use, multiple discussions, and likely by late 12/2024, hoses will be replaced and she can resume utilization of the CPAP. GI. A. Gastroesophageal reflux disease. Sleeps on blocks, utilizes a PPI, avoid spicy foods, and feels symptoms are manageable. B. 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 History of thyroid nodules, benign biopsy 2018. Nodules being followed. 04/2024 TSH 0.60, 10/2024 TSH 0.46, FT4 1.2 Myotonic dystrophy. Type 1, diagnosed in 2003, after having hand and arm modest weakness and then myotonia, approximately 1 year after noted left bundle branch block, very slowly progressive, with subsequent leg weakness, constipation, and ultimately, by approximately 2021 cardiomyopathy. Difficulty opening jars. Worsened capability in terms of walking. Overweight, but stable weight. 10/2024 60 tall, 170 pounds, BMI 30.97. 12/2024 172 pounds. Mother had pacemaker and heart failure, no known myotonic dystrophy, lived to age 93. Father, smoker, with lung cancer at age 52. Sister with progressive myotonic dystrophy, lived to age 50. Sister, smoker, with lung cancer, and may have had myotonic dystrophy because there were many complaints of hand weakness. Smoked until early fourth decade. Occasional ETOH usage - 2 alcoholic drinks per week. Glucose status: GLUCOSE 70 04/26/2024 . 10/2024 A1c 5.5% Hypotension and heart failure. 08/2024 BUN 22, creatinine 0.86, potassium 4.5, sodium 139, Mg 2.1; HCT 38.3, MCV 91.2, RDW 12.4, plts 159, WBC 5.7. 10/2024 cortisol 4.4, NT-proBN 1305, iron 91, TIBC 317, Ferritin 100. BUN 23, creatinine 0.76, potassium 5.8 (repeat 4.9, 4.1), sodium 142. IGA 240, IGG 757, IGM 71, KAPPA 15.9, LAMBDA 11.8, K/L 1.35. No M spike. No monoclonal gammopathy. 11/2024 homeBP 81-108/60-70 mmHg. Valsartan increased to 20 mg in the morning and 20 mg in the evening. 12/2024office, resting blood pressure 92/68, standing, 94/70 mmHg. Dyslipidemia. Rosuva 40 mg. 10/2024, TC 157, HDL 72, LDL 69, TG 78. Electrical. With manifestations of myotonic dystrophy type I. Left bundle branch block approximately 2002, slowly progressive first-degree AV block, Atrial Fibrillation. Brief amiodarone, discontinued related to bradycardia. 2022 PVI/CTI. 09/2024, bradycardia, first-degree AV block, left bundle, dual-chamber PM, unable to place CS lead. A. 07/03/2022, after 6 months of intermittent atrial fibrillation manifested by nocturnal chest discomforts, underwent A-fib ablation with PVI, focal ablation of A-fib flutter posterior roofline, cavotricuspid isthmus dependent flutter ablation B. Left bundle branch block (initially noted in 2002,- QRS duration 172 ms), sinus bradycardia, first degree AVB -NE interval 298 ms, 09/2024, 24-hour Holter, sinus rhythm with sinus bradycardia-prolonged first-degree AV block, left bundle branch block, average heart rate 56 bpm range 43 to 89 bpm total time with bradycardia 17 hrs and 17 mins D. 10/13/2024, for episodes of hypotension, bradycardia, received dual-chamber pacemaker. Plans forCRT P, but unable to place wire in CS. 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 Underlying Rhythm: -VS 70 w/ 1st Degree AVB, wide left bundle branch block. E. 01/05/2025 discussion of upgrade to REAL ESTATE SERVICES ADMINISTRATOR-D/feasible left bundle branch area pacing/defibrillator.. Multivessel nonobstructive CAD and cardiomyopathy symptoms, hypotension on low- dose Entresto. A. 07/2024, with awareness of worsened LV function, exertional dyspnea, CT Calcium: Left Main: 0.LAD: 127.11.LCX: 92.45. RCA: 20.66.Total coronary calcium score is 240.22. B. 07/19/2024 CTA - Multivessel nonobstructive coronary artery disease which appears to be nonobstructive. Poor visualization of PDA. C. 07/2024 [place] cath, Left main normal, LAD proximal 10 to 20% stenosis, left circumflex proximal calcified plaques 20%, RCA right dominant scattered multi focal calcified plaques in the proximal and mid segment 10 to 20% stenosis D. 07/2024, in [place], for dilated cardiomyopathy, initiated Entresto , patient states daily,though prescription suggested twice daily, with metoprolol succinate 25 mg daily. Initially tolerated, subsequently blood pressure often in the 70s, medication stopped. Last Cardiac non invasive structural/functional studies: A. Echo 03/2024 LVEF 30-35% .Global hypokenensis inferior lateral akineasis compared to an echo in 2020 the LVEF has declined. Mild LVH. B. 05/05/2024 Nuclear Stress, Nuclear imaging of the left ventricle shows a dilated cavity size. Myocardial perfusion imaging of the left ventricle reveals a small, mild rest only perfusion defect ofthe anteroseptal and apical casiano; this is not apparent with stress suggesting an artifactual finding. Gated SPECT imaging was performed which demonstrated abnormal left ventricular systolic function. The calculated LVEF is 42 % with stress and 46% at rest. C. 06/28/2024 [place] Echo: EF 35 to 40% inferior lateral wall motion abnormality left atrium mildly dilated right ventricle normal size and function mild tricuspid regurgitation normal septal wall thickness D. 09/30/2024 Echo, pre pacer, LAURE 5.8, ESD 4.35, wall thickness 0.95, EF 48%. GLS -15, no base-apex gradient. LA 5.35. Area 19, index 28, posterior mitral valve leaflet subtle override, but only mild mitral regurgitation, normal pulmonary venous systolic forward flow, early filling 0.64 atrial 0.41 deceleration time 331, E prime lateral 3.7, E prime septum 4.1. RA 4.0, area 14, RV base 3.63 cm2 RVOT 3.1 Vmax 0.65, trace tricuspid regurgitation, S prime 11 TAPSE 1.9 IVC 1.9 with normal respirophasic motion, aortic root 3.4 ascending aorta 3.6, aortic sclerosis, LVOT V-max 0.63 time velocity integral 14.9 aortic valve V-max 1.3. I spoke with, Trinidad Evangelista, and her today in virtual EP Clinicy. Mrs. Evangelista is a 64 y.o. woman who has easily precipitated exertional dyspnea, in addition to modest orthostatic lightheadedness. Detailed above is her history of type I myotonic dystrophy, manifested since 2003 with hand weakness, and a left bundle branch block, but then slowly progressive leg weakness and ultimately a cardiomyopathy. She has had multiple electrical issues related to her myotonic dystrophy, 07/2022 PVI/CTI/roofline ablation for atrial fibrillation and atrial flutter, left bundle branch block andsinus bradycardia, marked first-degree AV block, a 10/13/2024 dual-chamber pacemaker, and attempts to place a CS lead were not successful; and following the pacemaker, there was a 09/2024 Holter thatshowed largely sinus bradycardia and largely atrial sensing and V pacing. a 09/30/2024 echocardiogram, preceding her pacer, that showed left ventricular dilatation, an ejection fraction 45%, not fully paradoxical interventricular septum, and likely related to her myotonic dystrophy, apical and posterolateral significant hypokinesis with minimal mitral regurgitation and minimal tricuspid regurgitation, and with a prolonged deceleration time and significantly diminished tissue Doppler indices, and low forward flow. A recent resting electrocardiogram shows AV pacing at a rate of 84 bpm, intervals of 0.20/0.19/0.46-30 degree axis, with ectopy. She is referred by Dr. Mcmillan to discuss REAL ESTATE SERVICES ADMINISTRATOR upgarde. Current Outpatient Medications on File Prior to Visit Medication Sig Dispense Refill Last Dispense cranberry 400 mg Cap capsule cranberry Unknown (patient-reported) furosemide (LASIX) 20 MG tablet Take 0.5 tablets (10 mg total) by mouth as needed (ankle swelling or swollen fingers). 30 tablet 3 Unknown (patient-reported) magnesium oxide 400 mg magnesium Tab Take 500 mg by mouth daily. Unknown (patient-reported) methenamine (HIPREX) 1 gram tablet Take 1 g by mouth daily. Unknown (patient-reported) omeprazole (PRILOSEC) 40 MG capsule Take 1 capsule by mouth every morning. Unknown (patient-reported) rosuvastatin (CRESTOR) 10 MG tablet Take 40 mg by mouth daily. Unknown (patient-reported) therapeutic multivitamin tablet Take 1 tablet by mouth daily. Unknown (patient-reported) TRELEGY ELLIPTA 100-62.5-25 mcg inhalation powder Inhale 1 puff into the lungs daily. Unknown (patient-reported) valsartan (DIOVAN) 40 MG tablet 0.5 tablets morning and evening, orally 90 tablet 3 Unknown (outside pharmacy) No current facility-administered medications on file prior to visit. Allergies Allergen Reactions Fentanyl Hives Hydromorphone Hives Levorphanol Hives Oxycodone Hives Oxymorphone Hives Hydrocodone-Acetaminophen Rash Morphine Hives and Rash Oxycodone-Acetaminophen Rash We spoke of the current CIED and the possibility of upgarde. We spoke of upgarde to a more physiologic pacer I.e. REAL ESTATE SERVICES ADMINISTRATOR with a CS lead vs LBBAP. We also spoke of the options of PPM vs ICD given the cardiomyopathy with known arrhythmic consequences and the high burden of ventricular ectopy. The procedure, risks and possible complications were reviewed with the patient including but not limited to infection, bleeding, cardiac or vascular surgery, pneumothorax, tamponade, seizure, myocardial infarction, stroke and . The possibility of needing emergent support from other services (i.e. Anesthesia, cardiac/vascular surgery, etc.) was also addressed. Of note, a shared decision tool was utilized which provided the patient further education about this procedure. All questions have been answered. After a discussion they wish upgarde to CRTD with removal of the RV pacing lead and placement of a CS vs LBBAP pending anatomical considerations. Will arrange in the near future. Virtual Visit Attestation Modality: interactive audio (phone only) Provider Location, state disclosed to patient: practice location Patient Location: [place] Patient State or Country: [place] E[place] Billing based on time ([id number]): Yes Total time spent on date of service (min): 45 Time spent with patient during visit (min): 45 I personally spent the total time as documented on care for this patient on the date of the encounter, of which the time spent with the patient during the encounter has been separately documented. Houston Mcfadden MD Cardiac Electrophysiology documented in this encounter Plan of Treatment Upcoming Encounters Date Type Department Care Team (Latest Contact Info) Description 02/03/2025 Procedure Pass [facility] Electrophysiology Lab [address] [place] [phone] 02/03/2025 10:45 AM EDT Hospital Encounter [facility] Electrophysiology Lab [address] [place] [phone] Houston cMfadden MD [address] [place] [phone] [email or web address] 02/03/2025 10:45 AM EDT - 02/03/2025 1:30 PM EDT Surgery [facility] Electrophysiology Lab [address] [place] [phone] Houston Mcfadden MD [address] [place] [phone] [email or web address] Pacemaker Permanent Upgrade, to ICD Bi-Ventricular (BiV) 09/18/2025 2:00 PM EDT Office Visit [facility] [address] [place] [phone] Carmita Downing MD [address] [place] [phone] [email or web address] documented as of this encounter Visit Diagnoses Diagnosis Arrhythmia- Primary Unspecified cardiac dysrhythmia Arrhythmia Unspecified cardiac dysrhythmia Arrhythmia Unspecified cardiac dysrhythmia documented in this encounter Care Teams Dumpman Relationship Specialty Start Date End Date Terry Edgar MD [address] [address] PCP - General Internal Medicine 11/16/24 documented as of this encounter Additional Source Comments The information contained in this document represents components of the legal health record. It is not the complete legal health record.[facility]
--- OUTSIDE RECORDS SUMMARY | 2025-01-17 07:50 | XMS_ITS | Clinical Summary ---
Author Organization [facility] Address [address] [place] [address] Phone Care Team Providers Care Court Registry Officer Name Role Phone Terry Metcalf MD Primary Care Provider [phone] Allergies Active Allergy Reactions Criticality Noted Date [...] 1 g by mouth daily 9 Active fluticasone-ume clidinium-vilan terol (TRELEGY ELLIPTA) 100-62.5-25 [...] (one) time each day. 90 each 3 5 08/02/19 26 Active rosuvastatin (CRESTOR) 40 mg tablet Take 1 tablet (40 mg total) by mouth 1 (one) time each day. 90 each 3 5 08/02/19 26 Active Additional Information Patient not taking.Reported on 11/08/2024 midodrine (PROAMATINE) 2.5 mg tablet TAKE 1 TABLET (2.5 MG TOTAL) BY MOUTH 3 TIMES A DAY BEFORE MEALS 270 tablet 1 Active ampicillin (PRINCIPEN) 500 mg capsule Take 1 capsule (500 mg total) by mouth 3 (three) times a day. 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 Assessment & Plan (06/15/2024 3:38 PM EST): Pt with new cardio LVEF 30-35% by outside record from [place]. Nuclear stress without signs of ischemia . [...] bundle branch block (LBBB) 02/08/2019 Atrial fibrillation ([facility] V24, [facility]/HCC V28) 0 02/15/2018 Overview (06/15/2024): sees cardio [...] next. 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 Encounters Date Type Department Care Team Description 12/27/2024 12:00 PM EDT Ancillary Procedure [facility] Cardiology [facility] [address] [place] [address] 12/13/2024 Telephone [facility] Cardiology [facility] [address] [place] [address] Terry Metcalf MD Medical Records 11/21/2024 Telephone [facility] Cardiology [facility] [address] [facility] [address] [place] [address] Terry Metcalf MD Medical Records 11/21/2024 Telephone [facility] Cardiology [facility] [address] [facility] [address] [place] [address] Terry Metcalf MD Medical Records 11/18/2024 Telephone [facility] [address] [place] [address] Yousif Smith MD 11/08/2024 2:40 PM EDT Office Visit [facility] [address] [place] [address] Gracy Lira PA Atrial fibrillation, unspecified type (CMS/HCC V24, CMS/HCC V28) (Primary Dx); Pacemaker; Other specified hypotension; Left bundle branch block (LBBB); Congestive heart failure, NYHA class 1, unspecified congestive heart failure type (CMS/HCC V24, CMS/HCC V28); Dilated cardiomyopathy (CMS/HCC V24, CMS/HCC V28); NOA (obstructive sleep apnea); SOB (shortness of breath) 11/08/2024 Telephone [facility] [address] [place] [address] Gracy Lira PA 11/01/2024 8:00 AM EDT Ancillary Procedure [facility] [address] [place] [address] Encounter for adjustment or management of cardiac device 10/20/2024 1:15 AM EDT Ancillary Procedure [facility] [address] [place] [address] 10/18/2024 Telephone [facility] [address] [place] [address] Jaquelin Redman MA from Last 3 Months Medical History Medical [...] Sign Reading Time Taken Comments Blood Pressure 120/70 11/08/2024 2:32 PM EDT Pulse 74 11/08/2024 2:32 PM EDT Temperature 36.6 C (97.9 F) 09/22/2024 8:42 PM EDT Respiratory Rate 16 09/22/2024 10:26 PM EDT Oxygen Saturation 97% 10/04/2024 1:10 PM EDT Inhaled Oxygen Concentration - - Weight 78.5 kg (173 lb) 11/08/2024 2:32 PM EDT Height 160 cm (5' 3 ) 11/08/2024 2:32 PM EDT Body Mass Index 30.65 11/08/2024 2:32 PM EDT Plan of Treatment Upcoming Encounters Date Type Department Care Team (Late st Contact Info) Description 02/14/2025 2:40 PM EDT Office Visit [facility] Cardiology [facility] [address] [facility] [address] [place] [address] Gracy Lira PA [address] [place] [address] 02/23/2025 1:10 PM EDT Office Visit [facility] [address] [place] [address] Gracy Lira PA [address] [place] [address] 11/01/2025 9:30 AM EDT Ancillary Procedure [facility] [address] [place] [address] Health Maintenance Due Date Last Done Comments Breast Cancer Screening 1960 Colorectal Cancer Screening: Colonoscopy 04/30/2022 Hepatitis C Screening 04/30/2022 Medicare Annual Wellness Visit 04/30/2022 Social Influencers of Health Screening 04/30/2022 Falls Risk Assessment 11/20/2023 COVID-19 Vaccine ( season) 2024 04/09/2021, 09/06/2020, 08/16/2020 Depression Screening 06/01/2024 Influenza Vaccine (#1) 2025 , 03/30/2023, 04/09/2021, Additional history exists Hypertension/CHF/CAD Annual BMP Blood Test 10/20/2025 10/20/2024, 09/22/2024, 04/26/2024, Additional history exists Cholesterol Screening (Lipid Panel) 11/25/2029 11/25/2024 Osteoporosis Screening (Bone Density Screening) 01/01/2030 01/02/2020 DTaP,Tdap,and Td Vaccines (2 - Td or Tdap) 06/21/2032 06/21/2022 Zoster Vaccines Completed 03/05/2020, 01/14/2019 RSV Immunization Adult Patients Completed 04/14/2023 Pneumococcal Vaccine: 50+ Years Completed 05/16/2024 HIB Vaccines Aged Out No [...] on patient's age to complete this topic Medical Devices Implanted Type Area Road Supervisor Of Engines Device Identifier Shelf Expiration Date Model / Serial / Lot Medt-Card Tj Xt Dr Brooks [id number] Implanted: (Quantity not on file) Cardiac Pacemaker [employer] - CARDIAC RHYTH-CRDM TJ XT DR BROOKS [id number] / [id number] / Medt-Card Tj Xt Dr Todd [id number] Implanted: (Quantity not on file) Cardiac Pacemaker [employer] - CARDIAC RHYTH-CRDM TJ XT DR BROOKS / [id number] / Procedures Procedure Name Priority Date/Time Associated Diagnosis Comments CARDIAC DEVICE CHECK- REMOTE- MURJ Routine 12/27/2024 11:55 AM EDT ECG 12-LEAD Routine 11/08/2024 4:46 PM EDT Atrial fibrillation, unspecified type (CMS/HCC V24, CMS/HCC V28) CARDIAC DEVICE CHECK- IN CLINIC- MURJ Routine 11/01/2024 8:43 AM EDT Encounter for adjustment or management of cardiac device COMPREHENSIVE METABOLIC PANEL Routine 10/20/2024 11:52 AM EDT Hypotension due to hypovolemia Myotonic muscular dystrophy (CMS/HCC V24, CMS/HCC V28) HFrEF (heart failure with reduced ejection fraction) (CMS/HCC V24, CMS/HCC V28) B-TYPE NATRIURETIC PEPTIDE Routine 10/20/2024 11:52 AM EDT Hypotension due to hypovolemia Myotonic muscular dystrophy (CMS/HCC V24, CMS/HCC V28) HFrEF (heart failure with reduced ejection fraction) (CMS/HCC V24, CMS/HCC V28) CARDIAC DEVICE CHECK- REMOTE- MURJ Routine 10/20/2024 1:13 AM EDT TERRY DEXA AXIAL SKELETON Routine 01/02/2020 9:45 AM EDT Encounter for screening for osteoporosis from Last 3 Months or Most Recently Relevant to Health Maintenance Results * Cardiac device check - Remote- MURJ (12/27/2024 11:55 AM EDT) Only the most recent of2 resultswithin the time period is included. Date Time Interrogation Session [id number] CV DEVICE CHECK Type Interrogation Session Remote CV DEVICE CHECK Implantable Pulse Generator Road Supervisor Of Engines MDT CV DEVICE CHECK Implantable Pulse Generator Type IPG CV DEVICE CHECK Implantable Pulse Generator Model Embarrass XT DR MRI [id number] CV DEVICE CHECK Implantable Pulse Generator Serial Number [id number] CV DEVICE CHECK Implantable Pulse Generator Implant Date 20241013 CV DEVICE CHECK Battery Remaining Longevity 116.0 CV DEVICE CHECK Battery Voltage 3.180 CV D EVICE CHECK Battery LUGGAGE MAKER Trigger 2.625 CV DEVICE CHECK Battery Status Middle of Service CV DEVICE CHECK John Statistic RA Percent Paced 45.48 CV DEVICE CHECK John Statistic RV Percent Paced 93.21 CV DEVICE CHECK Atrial Tachy Statistic AT/AF Jerome Percent 0.20 CV DEVICE CHECK Lead Channel Sensing Intrinsic Amplitude 0.750 CV DEVICE CHECK Lead Channel Setting Sensing Sensitivity 0.30 CV DEVICE CHECK Lead Channel Impedance Value 399 CV DEVICE CHECK Lead Channel Pacing Threshold Amplitude 0.750 CV DEVICE CHECK Lead Channel Pacing Threshold Pulse Width 0.4 CV DEVICE CHECK Lead Channel RA Pacing Threshold Date 2024-12-22 CV DEVICE CHECK Lead Channel Setting Pacing Amplitude 3.500 CV DEVICE CHECK Lead Channel Setting Pacing Pulse Width 0.4 CV DEVICE CHECK Lead Channel Sensing Intrinsic Amplitude 5.750 CV DEVICE CHECK Lead Channel Setting Sensing Sensitivity 0.90 CV DEVICE CHECK Lead Channel Impedance Value 304 CV DEVICE CHECK Lead Channel Pacing Threshold Amplitude 1.000 CV DEVICE CHECK Lead Channel Pacing Threshold Pulse Width 0.4 CV DEVICE CHECK Lead Channel RV Pacing Threshold Date 2024-12-22 CV DEVICE CHECK Lead Channel Setting Pacing Amplitude 3.500 CV DEVICE CHECK Lead Channel Setting Pacing Pulse Width 0.4 CV DEVICE CHECK John Setting Mode (NBG Code) DDDR CV DEVICE CHECK John Setting Lower Rate Limit 60 CV DEVICE CHECK John Setting AT Mode Switch Rate 171 CV DEVICE CHECK John Setting Maximum Tracking Rate 130 CV DEVICE CHECK John Setting Maximum Sensor Rate 130 CV DEVICE CHECK John Setting PAV Delay 200 CV DEVICE CHECK John Setting LINDSAY Delay 180 CV DEVICE CHECK Zone Setting Type Category AT/AF CV DEVICE CHECK Rate 171 CV DEVICE CHECK Therapies Some Rx Off CV DEVIC E CHECK Zone Setting Status Monitor CV DEVICE CHECK Zone ID 2 CV DEVICE CHECK Zone Setting Type Category VT CV DEVICE CHECK Rate 150 CV DEVICE CHECK Zone Setting Status ENABLED CV DEVICE CHECK Zone ID 6 CV DEVICE CHECK Date of Service 2025-01-03 CV DEVICE CHECK Anatomical Region Laterality Modality Device Interroga tion 12/22/2024 11:5 9 PM EDT Impressions 12/27/2024 11:51 AM EDT Normal Remote: With Events * Normal Device Function * Events or Alerts: 36 * Brief AF Episodes * Battery: OK, 9.67 yrs * Sensing, impedance and thresholds reviewed * Programmed parameters reviewed * Presenting rhythm reviewed * Heart Rate Histograms reviewed Additional Notes: FALSE AMS EPSIODES R WAVE OVERSENSING Narrative Procedure Note Gracy Lira PA - 12/27/2024 IMPRESSION: Normal Remote: With Events * Normal Device Function * Events or Alerts: 36 * Brief AF Episodes * Battery: OK, 9.67 yrs * Sensing, impedance and thresholds reviewed * Programmed parameters reviewed * Presenting rhythm reviewed * Heart Rate Histograms reviewed Additional Notes: FALSE AMS EPSIODES R WAVE OVERSENSING Gracy CARLTON CV IMPLANTABLE CARDIAC DEVICE WA OCEDURES Final Result * ECG 12 lead (11/08/2024 4:46 PM EDT) Ventricular Rate ECG 74 BPM GEMUSE Atrial Rate 74 BPM GEMUSE QRS Duration 188 ms GEMUSE Q-T Interval 470 ms GEMUSE QTc 521 ms GEMUSE R [place] 144 degrees GEMUSE T [place] 62 degrees GEMUSE ECG Interpretation AV dual-paced rhythm When compared with ECG of 27-SEP-2024 15:18, Electronic ventricular pacemaker has replaced Sinus rhythm Confirmed by HENRRY SMITH ([id number]) on 11/10/2024 12:38:12 PM GEMUSE 11/08/2024 2:43 PM EDT 11/10/2024 12:38 PM EDT Gracy CARLTON ECG ORDERABLES Edited Result - Final GEMUSE * CARDIAC DEVICE CHECK- [facility]- [facility] (11/01/2024 8:43 AM EDT) Date Time Interrogation Session [id number] CV DEVICE CHECK Implantable Pulse Generator Road Supervisor Of Engines MDT CV DEVICE CHECK Implantable Pulse Generator Type IPG CV DEVICE CHECK Implantable Pulse Generator Model Embarrass XT DR MRI CV DEVICE CHECK Implantable Pulse Generator Serial Number [id number] CV DEVICE CHECK Implantable Pulse Generator Implant Date 20241013 CV DEVICE CHECK Battery Status Beginning of Service CV DEVICE CHECK John Statistic RA Percent Paced 33.10 CV DEVICE CHECK John Statistic RV Percent Paced 93.60 CV DEVICE CHECK Atrial Tachy Statistic AT/AF Jerome Percent 0.10 CV DEVICE CHECK Lead Channel Sensing Intrinsic Amplitude 2.100 CV DEVICE CHECK Lead Channel Setting Sensing Sensitivity 0.30 CV DEVICE CHECK Lead Channel Impedance Value 399 CV DEVICE CHECK Lead Channel Pacing Threshold Amplitude 0.750 CV DEVICE CHECK Lead Channel Pacing Threshold Pulse Width 0.4 CV DEVICE CHECK Lead Channel RA Pacing Threshold Date 2024-11-01 CV DEVICE CHECK Lead Channel Setting Pacing Amplitude 3.500 CV DEVICE CHECK Lead Channel Setting Pacing Pulse Width 0.4 CV DEVICE CHECK Lead Channel Sensing Intrinsic Amplitude 7.500 CV DEVICE CHECK Lead Channel Setting Sensing Sensitivity 0.90 CV DEVICE CHECK Lead Channel Impedance Value 342 CV DEVICE CHECK Lead Channel Pacing Threshold Amplitude 0.750 CV DEVICE CHECK Lead Channel Pacing Threshold Pulse Width 0.4 CV DEVICE CHECK Lead Channel RV Pacing Threshold Date 2024-11-01 CV DEVICE CHECK Lead Channel Setting Pacing Amplitude 3.500 CV DEVICE CHECK Lead Channel Setting Pacing Pulse Width 0.4 CV DEVICE CHECK John Setting Mode (NBG Code) DDDR CV DEVICE CHECK John Setting Lower Rate Limit 60 CV DEVICE CHECK John Setting AT Mode Switch Rate 171 CV DEVICE CHECK John Setting Maximum Tracking Rate 130 CV DEVICE CHECK John Setting Maximum Sensor Rate 130 CV DEVICE CHECK Zone Setting Type Category AT/AF CV DEVICE CHECK Therapies All Rx Off CV DEVICE CHECK Zone Setting Status Monitor CV DEVICE CHECK Zone ID 2 CV DEVICE CHECK Zone Setting Type Category VT CV DEVICE CHECK Zone Setting Status Monitor CV DEVICE CHECK Zone ID 5 CV DEVICE CHECK Date of Service 2024-11-21 CV DEVICE CHECK Anatomical Region Laterality Modality Device Interroga tion 11/01/2024 Impressions 11/01/2024 11:07 AM EDT Normal In-Office: No Events * Normal Device Function * Alerts or events: None * Battery: RITA, 14.2 years * Sensing, impedance and thresholds reviewed and tested * Presenting Rhythm: -TELEHEALTH DIRECTOR 75 bpm * Underlying Rhythm: -VS 70s w/ 1st Degree AVB * Heart Rate Histograms reviewed * Pacing and Detection Parameters were evaluated * Incision well approximated, no edema, redness or drainage noted; scant Dermabond remains. * AT/AF alerts turned on and changed from 6 hours to 0.5 hours today . Narrative Procedure Note Yousif Smith MD - 11/01/2024 IMPRESSION: Normal In-Office: No Events * Normal Device Function * Alerts or events: None * Battery: RITA, 14.2 years * Sensing, impedance and thresholds reviewed and tested * Presenting Rhythm: -TELEHEALTH DIRECTOR 75 bpm * Underlying Rhythm: -VS 70s w/ 1st Degree AVB * Heart Rate Histograms reviewed * Pacing and Detection Parameters were evaluated * Incision well approximated, no edema, redness or drainage noted; scantDermabond remains. * AT/AF alerts turned on and changed from 6 hours to 0.5 hours today . us Order Referral Cardiovascular CV IMPLANTABLE CAR DIAC DEVICE PROCEDURES Final Result * (ABNORMAL) B-type natriuretic peptide (10/20/2024 11:52 AM EDT) B-Type Natriuretic Peptide 144.2(H) 0.0 - 100.0 pg/mL [facility] Comment:[employer] AD[facility]IA [facility] XP methodology Blood Venous blood specimen / Unknown 10/20/2024 11:52 AM EDT 10/20/2024 Narrative [facility] 1 - 10/21/2024 7:06 AM EDT Performed at: 01 - [id number] Referee: Ximena Venegas MD, Phone: [phone] us Gracy CARLTON LAB BLOOD ORDERABLES Final Resul t [facility] * (ABNORMAL) Comprehensive metabolic panel (10/20/2024 11:52 AM EDT) Glucose 85 70 - 99 mg/dL [facility] 1 Blood Urea Nitrogen (BUN) 25 8 - 27 mg/dL [facility] Creatinine 0.72 0.57 - 1.00 mg/dL [facility] 1 eGFR 93 >59 mL/min/1. 73 [facility] 1 BUN/Creatinine Ratio 35(H) 12 - 28 [facility] 1 Sodium 140 134 - 144 mmol/L [facility] 1 Potassium 4.2 3.5 - 5.2 mmol/L [facility] 1 Chloride 102 96 - 106 mmol/L [facility] 1 Carbon Dioxide 18(L) 20 - 29 mmol/L [facility] 1 Calcium 10.3 8.7 - 10.3 mg/dL [facility] 1 Protein Total 6.8 6.0 - 8.5 g/dL [facility] 1 Albumin 4.6 3.9 - 4.9 g/dL [facility] 1 Globulin Total 2.2 1.5 - 4.5 g/dL [facility] 1 Bilirubin Total 1.6(H) 0.0 - 1.2 mg/dL [facility] 1 Alkaline Phosphatase 78 44 - 121 IU/L [facility] 1 Aspartate aminotransferase (AST) 32 0 - 40 IU/L [facility] 1 Alanine Aminotransferase (ALT) 27 0 - 32 IU/L [facility] 1 Blood Venous blood specimen / Unknown 10/20/2024 11:52 AM EDT 10/20/2024 Narrative [facility] 1 - 10/21/2024 9:07 AM EDT Performed at: 01 - [facility] [id number] [address] Referee: Ximena Venegas MD, Phone: [phone] us Gracy CARLTON LAB BLOOD ORDERABLES Final Resul t [facility] * [facility] DEXA AXIAL SKELETON (01/02/2020 9:45 AM EDT) Anatomical Region Laterality Modality Mammography 01/02/2020 8:53 AM EDT Narrative 01/02/2020 9:45 AM EDT [facility] Diagnostic Imaging Department [address] [place] [address] Patient: TRINIDAD EVANGELISTA /Age/Sex: 1960 - 59 - F Unit#: [id number] Location/Status: SPDIMAM/REG CLI Mnemonic[facility] Order[facility] Physician: NICKY ONRTH MD Terry Dexa Axial Skeleton - 01/02/20 - 939 HISTORY: The patient is a 59-year-old postmenopausal female with clinical concern for metabolic bone disease. FINDINGS: Dual [...] 106% of that of age matched controls. This yields a T-score of -0.2 and a [...] probability of hip fracture of 0.8%. Code 67061 Dictating Physician: ELO ADAIR MD Electronically Signed by: ELO ADAIR MD Dic Date/Time: 01/02/20943 Sign date/Time: 08/03/20 0945 Procedure Note Elo Adair MD - 05/21/2022 [facility] Diagnostic Imaging Department [address] [place] [id number] Patient: PARKERTRINIDAD./Age/Sex: 1960 - 59 - F Unit#: [id number] Location/Status: SPDIMA/REG CLI Mnemonic[facility] Ordering Physician: NICKY NORTH MD Terry Dexa [...] density of the femurs bilaterally is 0.984 gm/nu9nyfyt is 98% of that of young normals [...] probability of hip fracture of 0.8%. 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
--- OUTSIDE RECORDS SUMMARY | 2025-01-17 07:50 | XMS_ITS | Patient Health Record ---
Author Organization [facility] Address [address] [place] [address] Care Team Providers Care Industrial Retrofit Designer Name Role Phone Radu Stoll Primary Care Provider Eron Curran Unavailable [phone] Allergies Allergen (clinical drug ingredient) Drug/Non Drug Allergy documented on EMR Reaction Allergy Type Onset Date Status all narcotics (uncoded) rash Allergy Active Reason For Referral No Information Medications Medication SIG (Take, Route, Frequency, Duration) Notes Start Date End Date Status Ciprofloxacin HCl 250 MG 1 tablet Orally every 12 hrs Active Fiber Active Omeprazole 20 MG 1 capsule Orally twi ce a day Active Melatonin prn Active Cranberry Active Multi Vitamin/Minerals - as directed Ora lly ONCE A DAY Active Aspir-81 81 mg one tablet once a day Active Diphenoxylate-Atropine 2.5-0.025 MG 1 tablet as needed Orally Four times a day/PRN 12/01/2018 Active Immunizations Vaccine Route Administration Date Status Comme nts Influenza Unknown 01/30/2018 Administered Social History Tobacco Use: Social History Observation Description Date Details (start date - stop date) Former Smoker NA - NA Tobacco Use/Smoking Question Answer Notes Patient is a former smoker How long has it been since you last smoked? > 10 years Alcohol Screen Question Answer Notes Did you have a drink contain ing alcohol in the past year? Yes How often did you have a dri nk containing alcohol in the past year? 2 to 3 times a week (3 points) How many drinks did you have on a typical day when you were drinking in the past year? 1 or 2 drinks (0 point) How often did you have 6 or more drinks on one occasion in the past year? Never (0 point) Points 3 Interpretation Positive Section Notes: Nonsmoker; no sig alcohol Nonsmoker; no sig alcohol Nonsmoker; no sig alcohol Problems Problem Type SNOMED Code ICD Code Onset Dates Problem Status W/U Status Risk Notes Problem 069591364 Gastroesophageal reflux disease, esophagitis presence not specified (K21.9) Active confirmed Problem 25489249 Hiatal hernia (K44.9) Active confirmed Problem 47860203 Diarrhea, unspecified type (R19.7) Active confirmed Problem 399503542 Non-intractable vomiting without nausea, unspecified vomiting type (R11.11) Active confirmed Problem 17250842 Esophageal dysph agia (R13.10) Active confirmed Problem 08613988 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 Plan Of Treatment Pending Test Test Name Order Date CLOSTRIDIUM DIFF TOXIN A&B (C DIFF) 11/29 STOOL WBC 12/14/2018 GIARDIA AG, STOOL EIA 12/14/2018 OVA & PARASITES (O&P) 12/14/2018 CULTURE, STOOL 12/14/2018 Future Test Test Name Order Date UPPER GI ENDOSCOPY BALLOOON DILATION OF ESOPH 04/02/2017 UPPER GI ENDOSCOPY 07/28/2017 UPPER GI ENDOSCOPY 12/14/2018 UPPER GI ENDOSCOPY 06/23/2019 Insurance Providers Payer Name Payer Address Payer Phone Subscriber Number Group Number Insured Name Patient Relationship to Insured Coverage Start Date Coverage End Date [facility] [address] [place] [address] [id number] SCARLET OSVALDO Self - patient is the insured Medical (General) History Medical History History ICD Code Melanoma-on her chest--1998 Denies AR,DM,CVA,Lung disease,renal dise ase Myotonic Dystrophy--hands, 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--- she has a neurologist in [place], [place] GERD Reports a negative colonoscopy at age 48 at [place] Negative screening colonosco py in 07/2017 except for some mild sigmoid diverticulosis and small internal hemorrhoids 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
--- OUTSIDE RECORDS SUMMARY | 2025-01-17 07:50 | XMS_ITS | Clinical Summary ---
Author Organization [facility] Address [address] [place] [address] Care Team Providers Care Deckhand Clam Dredge Name Role Phone Unknown, Primary Care Provider [...] Tdap / Td (1 - Tdap) 1977 Colon Cancer Screening (Colonoscopy) 11/20/2003 Breast Cancer Screening (Mammogram) 2008 Shingrix-Zoster Vaccine (1 o f 2) 2008 03/05/2020 Fall Risk Assessment 11/20/2023 Osteoporosis Screening (DEXA Scan) 11/20/2023 Pneumococcal Vaccine (1 of 1 - PCV) 11/20/2023 Influenza Vaccine (#1) 2025 0, 01/14/2019, 04/15/2018 RSV Adult > 60+ Yrs or (1 - 1-dose 75+ series) 2033 Hepatitis B Vaccines Aged Out No long er eligible based on patient's age to complete this topic RSV Ped < 20 months Aged Out No longe r eligible based on patient's age to complete this topic Care Teams Deckhand Clam Dredge Relationship Specialty Start Date End Date Unknown, PCP - General 03/26/22
--- NOTE | 2025-01-17 07:54 | PFT_ITS ---
Indication: Dyspnea Spirometry FEV1 to FVC 85%; FEV1 1.97 L; FVC 2.31 L. No significant response to bronchodilators noted. Lung Volumes Total lung capacity 80% predicted; residual volume 91% predicted; expiratory reserve volume 32% predicted Diffusion Capacity DLCO 69% predicted; DLCO corrected for alveolar volume 91% predicted Comparisons None Interpretation No definitive obstructive nor restrictive ventilatory defects identified. No significant response to bronchodilators noted. Total lung capacity is low normal therefore need to consider underlying neuromuscular conditions. The patient does have a decrease in the expiratory reserve volume is well. The patient does have a mild diffusion impairment although it does correct to normal when corrected for the alveolar volume. Clinical correlation warranted. MTDD
[2025-01-17 08:44] VITALS: PULSE 64; O2SAT 97
== END 2025-01-17 07:49 | disposition home or self-care (01) ==
LOC: HO.RESP 07:48
PROVIDERS: PCP Family Medicine; Visit Provider Hospitalist
DX: G70.9 Myoneural disorder, unspecified (principal); R06.00 Dyspnea, unspecified
CPT/HCPCS: 94010; 94640; 94727; 94729

== ENCOUNTER → 2025-01-17 07:54 | Outpatient (BNV) | payer MEDICARE, OTHER, SELFPAY | PROVIDERS: PCP Family Medicine; Visit Provider Hospitalist | DX: R06.00 Dyspnea, unspecified (principal) | CPT/HCPCS: 94060; 94727; 94729 ==

== ENCOUNTER 2025-01-31 09:38 | Outpatient (AMB) | payer MEDICARE, OTHER, SELFPAY ==
--- NOTE | 2025-01-31 09:41 | MHC.OFFVIS ---
Vital Signs 01/31/25 09:42 Height 5 ft 4 in Weight 169 lb 12.095 oz BMI 29.1 BP 94/58 L Blood Pressure Location Lt brachial Position Sitting Pulse 60 Pulse Source Pulse Oximeter Pulse Oximetry (%) 95 Oxygen Delivery Method Room Air Intake Visit Reasons: COPD/PFT FU Accompanied by: Self / Same As Patient Allergies adhesive Allergy (Mild, Verified 01/31/25 09:46) rash NARCOTICS Allergy (Intermediate, Uncoded 09/21/24 12:06) RASH narcotcis Allergy (Unknown, Uncoded 09/21/24 12:06) Rash NARCOTCS Allergy (Unknown, Uncoded 09/21/24 12:06) Unknown HPI Comments Details: The patient is a 64 year woman with 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 She was seen by a local tennis player for some time. She presents for further evaluation of worsening dyspnea. She has been progressively more dyspneic. Qgff-ba-qtiklzyi severity. She was placed on Trelegy although she is seems only a slight improvement with the medication. Other family members feel like it helped more than that patient states. She has not had any recent pulmonary function studies. In regards her myotonic dystrophy there was some suggestion of some progression based on her last evaluation although she will be soon being re-evaluated there. She has not had pulmonary function studies which will request at this time also with maximum inspiratory and expiratory pressures. During the visit we did go for brief walking oximetry and the patient maintain a pulse ox of 94% during the ambulation in the heart rate was in the 80s. However the patient was initially nodule is in a little dizzy so therefore initially when we checked the blood pressure was 76 systolic then afterwards we checked it again was about 100 systolic. And the patient was going to go for an EKG and blood work because she had an irregular heart rhythm. Although when she was standing making her appointment she again felt woozy and nauseous and therefore we rechecked the blood pressure was systolic in the low 80s so therefore we did call her primary care doctor and everybody was in agreement for the patient to go to the ER for further evaluation. I do not have her most recent echocardiogram that she had a prior traumatic cardiology although she does state that she had a new medication, metoprolol added to her regimen. 01/31/2025 the patient is here for a pulmonary follow-up visit. Overall the patient is doing a lot better. She did follow-up with Cardiology and ultimately referred to [facility]. She will be undergoing a EP procedure this week. She is optimistic that is going to help her overall feel better. From a respiratory status she is continues to have some dyspnea on exertion. [id number]-bmtczzji severity. Her cough is effective. We did review her pulmonary function studies that she just had demonstrating just a very mild restrictive ventilatory defect consistent with her myotonic dystrophy. We did compared to previous spirometry that she had and Mireya about 2023. It appears that her FEV1 and FVC are about the same. Therefore I did reassure her that does not appear to have any worsening respiratory capacity this time. She was supposed to have blood work including a blood gas. She has not had as of yet. Will wait for her to undergo her cardiac procedures and recover and she can come in for the blood gas. And also the patient has not been able to use her CPAP. The patient is still waiting for supplies from her [employer]. Apparently she was not getting supplies because they were going through her old insurance and not her current insurance. Therefore I will submit a script for supplies to her [employer] company for additional supplies. The patient understands that CPAP is important to treat her cardiovascular health and cardiovascular risk factors. [facility] Medical History (Updated 01/31/25 @ 20:53 by Jermaine Payne MD) Chronic restrictive lung disease NOA on CPAP Neuromuscular disease Cardiomyopathy Dyspnea Social History Alcohol intake: current Alcohol intake frequency: holidays/special occasions only Patient Tobacco Use Status: Former Tobacco user Review of Systems Const Denies chills, Denies daytime sleepiness, Denies fever(s), Denies poor appetite, Denies snoring, Denies stops breathing during sleep and Denies weakness Eyes Denies loss of vision ENT Reports dizziness and Denies hearing loss Card Denies chest pain, Denies irregular heart rhythm, Denies claudication, Denies leg edema, Denies lightheadedness, Denies palpitations, Reports dyspnea on exertion and Denies orthopnea Resp Denies cough, Denies excessive phlegm production, Reports dyspnea on exertion, Denies snoring and Denies wheezing GI Denies abdominal pain, Denies hematochezia, Denies change in bowel habits, Reports nausea and Denies vomiting Denies urinary frequency and Denies dysuria Musc Reports myalgias, Denies arthralgias, Denies muscle weakness, Denies numbness and Denies other Skin/Breast Denies nail changes and Denies rash Neuro Denies Abnormal speech present, Reports dizziness, Denies loss of vision, Denies memory loss, Denies numbness and Denies weakness Psych Denies depression and Denies memory loss Endo Denies palpitations Riley/Lymph Denies easy bruising Aller/Immun Denies wheezing Physical Exam Vital Signs: Last Vital Signs Pulse 60 01/31/25 09:42 BP 94/58 L 01/31/25 09:42 Pulse Ox 95 01/31/25 09:42 Oxygen Delivery Method Room Air 01/31/25 09:42 BMI result Body Mass Index 29.1 Const General: comfortable HEENT Head: Yes normocephalic Neck Neck: Yes supple Chest Chest palpation & inspection: normal inspection of the chest Resp Effort & Inspection: normal respiratory effort Auscultation: diminished lung sounds Cardio Heart sounds: S1 normal heart sound present and S2 normal heart sound present GI Palpation (GI): Soft to palpation Skin General skin exam: no rashes or lesions noted Neuro Speech: No Abnormal speech present Extrem General: Yes no clubbing, cyanosis or edema Results Reviewed Results Reviewed: Assessment & Plan Assessment & Plan (1) Myotonic dystrophy: Code(s): G71.11 - Myotonic muscular dystrophy Category: Medical (2) Cardiomyopathy: Code(s): I42.9 - Cardiomyopathy, unspecified Category: Medical Qualifiers: Cardiomyopathy type: unspecified Qualified Code(s): I42.9 - Cardiomyopathy, unspecified (3) Neuromuscular disease: Code(s): G70.9 - Myoneural disorder, unspecified Category: Medical (4) Dyspnea: Code(s): R06.00 - Dyspnea, unspecified Category: Medical Qualifiers: Dyspnea type: dyspnea on exertion Qualified Code(s): R06.09 - Other forms of dyspnea (5) NOA on CPAP: Code(s): G47.33 - Obstructive sleep apnea (adult) (pediatric) Category: Medical (6) Chronic restrictive lung disease: Code(s): J98.4 - Other disorders of lung Category: Medical Plan No evidence of obstruction. Clinicallt not responding to Trelegy. Will stop Trelegy once the cardiac workup completed continue PAP therapy, will bring it in to the next visit. Needs supplies. F/U with Cardiology, EP F/U 3-4 months Coding Level of Care Code Est Pt Level 4 (42300) Complex EM visit Add On G2211 Diagnoses Myotonic dystrophy G71.11 Cardiomyopathy, unspecified type I42.9 Cardiomyopathy type: unspecified Neuromuscular disease G70.9 Dyspnea on exertion R06.09 Dyspnea type: dyspnea on exertion NOA on CPAP G47.33 Chronic restrictive lung disease J98.4 Time Spent (min) 17
[2025-01-31 09:42] VITALS: BP 94/58; PULSE 60; O2SAT 95; BMI 29.1
--- OUTSIDE RECORDS SUMMARY | 2025-01-31 10:43 | XMS_ITS | Encounter Summary ---
Author Organization [facility] Address [address] [place] [phone] Phone Care Team Providers Care Organ Builder Name Role Phone Terry Edgar MD Primary Care Provider Encounter Details Date Type Department Care Team (Late st Contact Info) Description 12/26/2024 Transcribe Orders [facility] [address] [place] [address] Pcp, Unknown Social History Tobacco Use Types Packs/Day Years Used Date Smoking Tobacco: Former Cigarettes 0.5 20 1 968 - 1987 Smokeless Tobacco: Never Alcohol Use Standard Drinks/Week [...] AM EDT documented as of this encounter Plan of Treatment Upcoming Encounters Date Type Department Care Team (Latest Contact Info) Description 02/03/2025 Procedure Pass [facility] Electrophysiology Lab [address] [place] [phone] 02/03/2025 10:45 AM EDT Hospital Encounter [facility] Electrophysiology Lab [address] [place] [phone] Houston Mcfadden MD [address] [place] [phone] [email or web address] 02/03/2025 10:45 AM EDT - 02/03/2025 1:30 PM EDT Surgery [facility] Electrophysiology Lab [address] [place] [phone] Houston Mcfadden MD [address] [place] [phone] [email or web address] Pacemaker Permanent Upgrade, to ICD Bi-Ventricular (BiV) 09/18/2025 2:00 PM EDT Office Visit [facility] [address] [place] [phone] Carmita Downing MD [address] [place] [phone] [email or web address] documented as of this encounter Visit Diagnoses Not on filedocumented in this encounter Care Teams Organ Builder Relationship Specialty Start Date End Date Terry Edgar MD [address] [place] [phone] PCP - General Internal Medicine 11/16/24 documented as of this encounter Additional Source Comments The information contained in this document represents components of the legal health record. It is not the complete legal health record.[facility]
--- OUTSIDE RECORDS SUMMARY | 2025-01-31 10:43 | XMS_ITS | Clinical Summary ---
Author Organization [facility] Address [address] [place] [phone] Phone Care Team Providers Care Mini Baccarat Dealer Name Role Phone Terry Edgar MD Primary Care Provider Allergies Active Allergy Reactions Criticality Noted Date Comments Adhesive Tape-Silicones Rash Low 09/22/2024 patient has skin rash w adhesive Fentanyl Hives 05/30/2015 Hydrocodone-Acetaminophen Rash Low 08/05/2015 Hydromorphone Hives 05/30/2015 Levorphanol Hives 05/30/2015 Morphine Hives,Rash Low 05/30/2015 Oxycodone Hives 05/30/2015 Oxycodone-Acetaminophen Rash Low 08/05/2015 Oxymorphone Hives 05/30/2015 Medications cranberry 400 mg Cap capsule cranberry Active therapeutic multivitamin tablet Take 1 tablet by mouth daily. Active TRELEGY ELLIPTA 100-62.5-25 mcg inhalation powder Inhale 1 puff into the lungs daily. Active methenamine (HIPREX) 1 gram tablet Take 1 g by mouth daily. 5 Active rosuvastatin (CRESTOR) 10 MG tablet Take 40 mg by mouth daily. Active omeprazole (PRILOSEC) 40 MG capsule Take 1 capsule by mouth every morning. 5 Active magnesium oxide 400 mg magnesium Tab Take 500 mg by mouth daily. Active furosemide (LASIX) 20 MG tablet Take 0.5 tablets (10 mg total) by mouth as needed (ankle swelling or swollen fingers). 30 tablet 3 Active valsartan (DIOVAN) 40 MG tabletIndications :Dyslipidemia,Hyp otension due to drugs,Dilated cardiomyopathy,Pa cemaker,Exertiona l dyspnea,Status post catheter ablation of atrial fibrillation,Nont oxic multinodular goiter 0.5 tablets morning and evening, orally 90 tablet 3 Active Active Problems Problem Noted Date Diagnosed Date Hypotension due to drugs 11/25/2024 Dilated cardiomyopathy 11/25/2024 Pacemaker 11/25/2024 Exertional dyspnea 11/25/2024 Status post catheter ablation of atrial fibrilla tion 11/25/2024 Nontoxic multinodular goiter 09/14/2024 Assessment & Plan (09/14/2024 10:51 PM EDT): Longstanding multinodular goiter with reported benign FNA of the largest right mid /upper 4.3 cm nodule. Serial ultrasounds reported stable bilateral nodules, last done in 12/2021. She is clinically and biochemically euthyroid without treatment. Last TSH 0.734 in 05/2024. 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 -Obtain previous cytology reports. -Repeat ultrasound, patient will schedule through [facility] and call for result. - Reviewed symptoms of hypo and hyperthyroidism, patient to call if concerned. Otherwise would monitor TSH yearly -Follow-up in 1 year Sensorineural hearing loss 02/18/2002 Overview (07/22/2014): Sensorineural hearing loss; hsp 70 ab (+) bilat Malignant melanoma 02/18/2002 Overview (07/22/2014): Melanoma History of tubal ligation 02/18/2002 Overview (07/22/2014): Tubal ligation Hypertensive disorder 02/18/2002 Overview (07/22/2014): Hypertension Encounters Date Type Department Care Team Description 01/13/2025 8:00 AM EDT Telemedicine - audio only [facility] [address] [place] [phone] Houston Mcfadden MD Arrhythmia (Primary Dx) 01/12/2025 Orders Only [facility] [address] [place] [address] Carmita Downing MD Nontoxic multinodular goiter (Primary Dx) 01/05/2025 11:00 AM EDT Office Visit [facility] [address] [address] Igor Mcmillan MD Dyslipidemia (Primary Dx); Hypotension due to drugs 01/05/2025 Telephone [facility] [address] [place] [address] Igor Mcmillan MD 01/05/2025 Ancillary Orders [facility] [address] [place] [address] Unknown, Nevin, 01/05/2025 Ancillary Orders [facility] [address] [place] [address] Unknown, Unknown, 01/05/2025 Ancillary Orders [facility] [address] [place] [address] Unknown, Unknown, 01/04/2025 Orders Only [facility] [address] [address] Igor Mcmillan MD 12/26/2024 Ancillary Orders [facility] [address] [place] [phone] Unknown, Nevin, 12/26/2024 Ancillary Orders [facility] [address] [place] [address] Unknown, Nevin, 12/26/2024 Transcribe Orders [address] [address] Pcp, Unknown 12/22/2024 Telephone [facility] [address] [place] [address] Igor Mcmillan MD 12/07/2024 Telephone [facility] [address] [place] [address] Igor Mcmillan MD 12/07/2024 Orders Only [facility] [address] [address] Igor Mcmillan MD Dyslipidemia; Hypotension due to drugs; Dilated cardiomyopathy; Pacemaker; Exertional dyspnea; Status post catheter ablation of atrial fibrillation; Nontoxic multinodular goiter 12/05/2024 Telephone [facility] [address] [address] Igor Mcmillan MD 12/01/2024 - 12/01/2024 11:59 PM EDT Hospital Encounter [facility] [address] [place] [address] Unknown, Unknown, MD Discharge Disposition: Home or Self Care 12/01/[address] [address] Igor Mcmillan MD 11/30/2024 Telephone [facility] Endocrinology [address] [place] [address] Carmita Downing MD Ultra Sound Order (Patient to be sent a letter, no return call ) 11/28/2024 Telephone [facility] [address] [address] Igor Mcmillan MD 11/25/2024 4:25 PM EDT - 11/25/2024 11:59 PM EDT Hospital Encounter [facility] Phlebotomy [address] [address] Igor Mcmillan MD Discharge Disposition: Home or Self Care 11/25/2024 2:00 PM EDT Office Visit [facility] [address] [address] Igro Mcmillan MD Dyslipidemia (Primary Dx); Hypotension due to drugs; Dilated cardiomyopathy; Pacemaker; Exertional dyspnea; Status post catheter ablation of atrial fibrillation; Nontoxic multinodular goiter 11/24/2024 Orders Only [facility] [address] [address] Igor Mcmillan MD 11/23/2024 Ancillary Orders [facility] [address] [place] [phone] Igor Mcmillan MD 11/23/2024 Ancillary Orders [facility] [address] [place] [address] Igor Mcmillan MD 11/23/2024 Ancillary Orders [facility] [address] [place] [address] Igor Mcmillan MD 11/22/2024 Documentation [facility] [address] [place] [address] Mine Jackson Jalil 11/22/2024 Ancillary Orders [facility] [address] [place] [address] Igor Mcmillan MD 11/22/2024 Ancillary Orders [facility] [address] [place] [address] Igor Mcmillan MD from Last 3 Months Family History Medical History Relation Comments Cancer Father Heart disease Mother Hypertension Mother Relation Status Comments Father Mother Social History Tobacco Use Types Packs/Day Years Used Date Smoking Tobacco: Former Cigarettes 0.5 20 1 968 - 1987 Smokeless Tobacco: Never Tobacco Cessation:Counseling Given: Not [...] Orientation Straight 11/16/2024 9: 14 AM EDT Last Filed Vital Signs Vital Sign Reading Time Taken Comments Blood Pressure 92/68 01/05/2025 11:07 AM EDT Pulse 84 01/05/2025 11:07 AM EDT Temperature - - Respiratory Rate - - Oxygen Saturation 98% 01/05/2025 11: 07 AM EDT Inhaled Oxygen Concentration - - Weight 78.4 kg (172 lb 14.4 oz) 025 11:07 AM EDT with shoes Height 158.1 cm (5' 2.25 ) 09/13/2024 1 :50 PM EDT Body Mass Index 31.37 09/13/2024 1:50 PM EDT Plan of Treatment Upcoming Encounters Date Type Department Care Team (Latest Contact Info) Description 02/03/[address] [facility] Electrophysiology Lab [address] [place] [phone] 02/03/2025 10:45 AM EDT Hospital Encounter [facility] Electrophysiology Lab [address] [place] [address] Houston Mcfadden MD [address] [place] [phone] [email or web address] 02/03/2025 10:45 AM EDT - 02/03/2025 1:[address] [facility] Electrophysiology Lab [address] [place] [address] Houston Mcfadden MD [address] [place] [phone] [email or web address] Permanent Upgrade, to ICD Bi-Ventricular (BiV) 09/18/2025 2:00 PM EDT Office Visit [facility] [address] [place] [phone] Carmita Downing MD [address] [place] [phone] [email or web address] Health Maintenance Due Date Last Done Comments Adult Td,Tdap Booster 1960 DEPRESSION SCREENING 1970 HEPATITIS C SCREENING 1976 MAMMOGRAM 1998 COLOGUARD 11/20/2003 COLONOSCOPY 11/20/2003 COLORECTAL CANCER SCREENING 11/20/2003 FIT TEST 11/20/2003 FOBT 11/20/2003 SIGMOIDOSCOPY 11/20/2003 VIRTUAL COLONOSCOPY 11/20/2003 OSTEOPOROSIS SCREENING INITIAL (ONE-TIME) 11/20/2023 COVID-19 VACCINE ( season) 2024 04/09/2021, 09/06/2020, 08/16/2020 INFLUENZA VACCINE (#1) 2024 , 03/30/2023, 04/09/2021, Additional history exists BLOOD PRESSURE 07/08/2025 01/05/2025 CREATININE LEVEL 11/25/2025 11/25/2024 POTASSIUM LEVEL 11/25/2025 11/25/2024 SCREENING FOR DIABETES 11/26/2027 11/25/2024, 2024 LIPID PANEL 11/25/2029 11/25/2024 ZOSTER VACCINES Completed 03/05/2020, 01/14/2019 RSV VACCINE Completed 04/14/2023 PNEUMOCOCCAL VACCINES (50+ years) Completed 05/16/2024 SMOKING STATUS SCREENING (Once After 26 Yrs) Completed 01/05/2025 HEPATITIS A VACCINES Aged Out No long er eligible based on patient's age to complete this topic HIB VACCINES Aged Out No longer eligi ble based on patient's age to complete this topic MENINGOCOCCAL VACCINES (ACWY) Aged Out No longer eligible based on patient's age to complete this topic MENINGOCOCCAL VACCINES (B) Aged Out N o longer eligible based on patient's age to complete this topic Medical Devices Not on file Procedures Procedure Name Priority Date/Time Associated Diagnosis Comments ECG 12-LEAD Routine 01/05/2025 11:03 AM EDT US THYROID GLAND Routine 12/28/2024 1:54 PM EDT Nontoxic multinodular goiter US THYROID GLAND Routine 12/01/2024 12:4 8 PM EDT Nontoxic multinodular goiter US THYROID GLAND OUTSIDE (NO INTERPRETATION) Routine 12/01/2024 12:00 AM EDT TSH WITH REFLEX Routine 11/25/2024 4:41 PM EDT Nontoxic multinodular goiter CORTISOL Routine 11/25/2024 4:41 PM EDT Dyslipidemia Hypotension due to drugs Dilated cardiomyopathy Pacemaker Exertional dyspnea Status post catheter ablation of atrial fibrillation Nontoxic multinodular goiter FREE T4 Routine 11/25/2024 4:41 PM EDT Dyslipidemia Hypotension due to drugs Dilated cardiomyopathy Pacemaker Exertional dyspnea Status post catheter ablation of atrial fibrillation Nontoxic multinodular goiter HEMOGLOBIN A1C Routine 11/25/2024 4:41 PM EDT Dyslipidemia Hypotension due to drugs Dilated cardiomyopathy Pacemaker Exertional dyspnea Status post catheter ablation of atrial fibrillation Nontoxic multinodular goiter NT-PROBNP Routine 11/25/2024 4:41 PM EDT Dyslipidemia Hypotension due to drugs Dilated cardiomyopathy Pacemaker Exertional dyspnea Status post catheter ablation of atrial fibrillation Nontoxic multinodular goiter FERRITIN Routine 11/25/2024 4:41 PM EDT Dyslipidemia Hypotension due to drugs Dilated cardiomyopathy Pacemaker Exertional dyspnea Status post catheter ablation of atrial fibrillation Nontoxic multinodular goiter BASIC METABOLIC PANEL Routine 11/25/2024 4:41 PM EDT Dyslipidemia Hypotension due to drugs Dilated cardiomyopathy Pacemaker Exertional dyspnea Status post catheter ablation of atrial fibrillation Nontoxic multinodular goiter LIPID PANEL Routine 11/25/2024 4:41 PM EDT Dyslipidemia Hypotension due to drugs Dilated cardiomyopathy Pacemaker Exertional dyspnea Status post catheter ablation of atrial fibrillation Nontoxic multinodular goiter IRON AND IRON BINDING CAPACITY Routine 11/25/2024 4:41 PM EDT Dyslipidemia Hypotension due to drugs Dilated cardiomyopathy Pacemaker Exertional dyspnea Status post catheter ablation of atrial fibrillation Nontoxic multinodular goiter SPEP PANEL WITH IMMUNOFIXATION Routine 11/25/2024 4:41 PM EDT Dyslipidemia Hypotension due to drugs Dilated cardiomyopathy Pacemaker Exertional dyspnea Status post catheter ablation of atrial fibrillation Nontoxic multinodular goiter FREE LIGHT CHAINS, SERUM Routine 11/25/2024 4:41 PM EDT Dyslipidemia Hypotension due to drugs Dilated cardiomyopathy Pacemaker Exertional dyspnea Status post catheter ablation of atrial fibrillation Nontoxic multinodular goiter ECG 12-LEAD Routine 11/25/2024 1:26 PM EDT SERUM PROTEIN ELECTROPHORESIS Routine 11/25/2024 12:00 AM EDT from Last 3 Months Results * ECG 12-LEAD (01/05/2025 11:03 AM EDT) Only the most recent of2 resultswithin the time period is included. Ventricular Rate EKG/MIN 84 BPM [facility] Atrial Rate 77 BPM [facility] IA Interval 198 ms [facility] QRS Duration 194 ms [facility] QT Interval 464 ms [facility] QTC Interval 548 ms [facility] R Wave [place] -38 degrees [facility] T Wave [place] 114 degrees [facility] 01/05/2025 11:0 3 AM EDT Narrative [facility] - 01/06/2025 6:42 PM EDT AV dual-paced rhythm with frequent ventricular-paced complexes Abnormal ECG When compared with ECG of 25-Nov-2024 13:26, Vent. rate has increased by 10 bpm us Igor Mcmlilan MD ECG ORDERABLES Final Result [facility] * US Thyroid Gland (12/01/2024 12:48 PM EDT) Anatomical Region Laterality Modality Neck, Head, Chest Ultrasound Jyoti gnostic us Carmita Downing MD IMG US THYROID Final Result * US Thyroid Gland Outside (No Interpretation) (12/01/2024 12:00 AM EDT) Narrative Sue Naqvi - 01/05/2025 12:58 PM EDT This study is for PACS storage only and not for interpretation. Procedure Note Sue Naqvi - 01/05/2025 This study is for PACS storage only and not for interpretation. us Unknown Unknown IMG OUTSIDE IMAGING W/OUT INT ERPRETATION Final Result * SPEP panel with immunofixation (11/25/2024 4:41 PM EDT) TOTAL PROTEIN 6.8 6.4 - 8.3 g/dL [facility] SPEP SEE PATHOLOGY REPORT [facility] IMMUNOFIXATION SEE PATHOLOGY REPORT [facility] IgA 240 70 - 400 mg/dL [facility] IMMUNOGLOBULIN G 757 700 - 1,600 mg/dL [facility] IMMUNOGLOBULIN M 71 40 - 230 mg/dL [facility] 11/25/2024 4:41 PM EDT 11/25/2024 4:48 PM EDT Igor Mcmillan MD LAB BLOOD ORDERABLES Final Resul t Performing Organization Address [facility] Co de Phone Number [facility] [address] [place] [address] * (ABNORMAL) TSH with reflex (11/25/2024 4:41 PM EDT) TSH 0.46(L) 0.50 - 5.70 uIU/mL [facility] 11/25/2024 4:41 PM EDT 11/25/2024 4:48 PM EDT Carmita Downing MD LAB BLOOD ORDERABLES Final Res ult Performing Organization Address [facility] [place] [address] * Iron and iron binding capacity (11/25/2024 4:41 PM EDT) IRON 91 37 - 158 ug/dL [facility] Comment: IRON BINDING CAPACITY 317 220 - 460 ug/dL [facility] Comment: TRANSFERRIN SATURAT. 29 14 - 50 % [facility] Comment: 11/25/2024 4:41 PM EDT 11/25/2024 4:48 PM EDT Igor Mcmillan MD LAB BLOOD ORDERABLES Final Resul t Performing Organization Address [facility] Co de Phone Number [facility] [address] [place] [phone] * Free light chains, serum (11/25/2024 4:41 PM EDT) FREE KAPPA LT CHAIN 15.9 3.3 - 19.4 mg/L [facility] FREE LAMBDA LT CHAIN 11.8 5.7 - 26.3 mg/L [facility] FREE KAPPA LAMBDA RAT 1.35 0.26 - 1.65 [facility] 11/25/2024 4:41 PM EDT 11/25/2024 4:48 PM EDT us Igor Mcmillan MD LAB BLOOD ORDERABLES Final Resul t Performing Organization Address [facility] de Phone Number [facility] [address] [place] [phone] * Free T4 (11/25/2024 4:41 PM EDT) FREE T4 1.2 0.9 - 1.7 ng/dL [facility] 11/25/2024 4:41 PM EDT 11/25/2024 4:48 PM EDT us Igor Mcmillan MD LAB BLOOD ORDERABLES Final Resul t Performing Organization Address [facility] de Phone Number [facility] [address] [place] [phone] * (ABNORMAL) NT-proBNP (11/25/2024 4:41 PM EDT) NT-PROBNP 1,305(H) <900 pg/mL [facility] Comment: 11/25/2024 4:41 PM EDT 11/25/2024 4:48 PM EDT Result Kaycee Mcmillan MD LAB BLOOD ORDERABLES Final Resul t Performing Organization Address [facility] Co de Phone Number [facility] [address] [place] [phone] * Hemoglobin A1c (11/25/2024 4:41 PM EDT) HEMOGLOBIN A1C 5.5 4.2 - 5.6 % [facility] Comment: HbA1c levels 5.7-6.4% represent pre-diabetes, indicating impaired glucose control and an increased risk of developing diabetes. The diagnostic HbA1c level for diabetes is 6.5% or greater. HbA1c is performed by the Cesar Khloe-quant immunoassay method which does not detect (incidental) hemoglobin variants. Hemoglobin electrophoresis should be ordered in patients with suspected hemoglobinopathies. CALC MEAN BLD GLUC 110 mg/dL [facility] Comment:The Calculated Mean Blood Glucose (CMBG) represents the estimated average glucose calculated from the measured hemoglobin A1c (HbA1c). There is no established normal range for the CMBG, however a 5.6% HbA1c (upper limit of normal) represents a CMBG of 114 mg/dL. 11/25/2024 4:41 PM EDT 11/25/2024 4:48 PM EDT Igor Mcmillan MD LAB BLOOD ORDERABLES Final Resul t Performing Organization Address [facility] de Phone Number [facility] [address] [place], [place] [id number] * Ferritin (11/25/2024 4:41 PM EDT) [facility] FERRITIN 100 10 - 200 ug/L [facility] Comment: 11/25/2024 4:41 PM EDT 11/25/2024 4:48 PM EDT us Igor Mcmillan MD LAB BLOOD ORDERABLES Final Resul t Performing Organization Address [facility] de Phone Number [facility] [address] [place] [phone] * Cortisol (11/25/2024 4:41 PM EDT) Pathologist [facility] CORTISOL 4.4 ug/dL [facility] Comment: (6-10AM): 6.0-18.4 ug/dL, (4-8PM): 2.7-10.5 ug/dL 11/25/2024 4:4 1 PM EDT 11/25/2024 4:48 PM EDT us Igor Mcmillan MD LAB BLOOD ORDERABLES Final Resul t Performing Organization Address [facility] de Phone Number [facility] [address] [place] [phone] * Lipid panel (11/25/2024 4:41 PM EDT) CHOLESTEROL 157 <200 mg/dL [facility] TRIGLYCERIDES 78 35 - 150 mg/dL [facility] HDL 72 40 - 80 mg/dL [facility] CALCULATED LDL 69 50 - 129 mg/dL [facility] VLDL 16 <31 mg/dL [facility] CARDIAC RISK RATIO 2.2 0.0 - 4.0 [facility] 11/25/2024 4:41 PM EDT 11/25/2024 4:48 PM EDT us Igor Mcmillan MD LAB BLOOD ORDERABLES Final Resul t Performing Organization Address [facility] de Phone Number [facility] [address] [place] [phone] * (ABNORMAL) Basic metabolic panel (11/25/2024 4:41 PM EDT) SODIUM 142 136 - 145 mmol/L [facility] POTASSIUM 5.8(H) 3.4 - 5.1 mmol/L [facility] CHLORIDE 107 98 - 107 mmol/L [facility] CO2 25 22 - 31 mmol/L [facility] BUN 23 6 - 23 mg/dL [facility] CREATININE 0.76 0.50 - 1.20 mg/dL [facility] GLUCOSE 88 70 - 100 mg/dL [facility] CALCIUM 10.5 8.8 - 10.7 mg/dL [facility] EGFR 86 >59 mL/min/1.[address] [facility] Comment:Estimated glomerular filtration rate calculated using the CKD-EPI refit equation. ANION GAP 10 7 - 17 mmol/L [facility] 11/25/2024 4:41 PM EDT 11/25/2024 4:48 PM EDT us Igor Mcmillan MD LAB BLOOD ORDERABLES Final Resul t [facility] [address] [place] [address] * Protein Electrophoresis (11/25/2024 12:00 AM EDT) 11/25/2024 11/25/2024 [facility] - 12/08/2024 5:54 AM EDT CASE: [id number] PATIENT: TRINIDAD EVANGELISTA Date: 1960 Sex: Female [facility] Department of Pathology [address] [place] [address] CLIA License No.: [id number] Director Of Promotions: Jaimie De La O MD, PhD Resident: Félix Ellsworth M.D., Ph.D. Pathologist: Jacob Jacobson M.D., Ph.D. CLINICAL DATA: Clinical Diagnosis: TEST ORDERED: Serum protein electrophoresis professional interpretation - [facility] Serum immunofixation electrophoresis professional interpretation - [facility] RESULT: Reference range Total Protein 6.8 g/dl 6.4 - 8.3 g/dL Albumin 3.91 g/dl 3.20 - 5.30 g/dL Alpha 1 0.23 g/dl 0.10 - 0.40 g/dL Alpha 2 1.01 g/dl (HI) 0.50 - 1.00 g/dL Beta 0.86 g/dl 0.60 - 1.20 g/dL Gamma 0.78 g/dl (LO) 0.80 - 1.70 g/dL IgG 757 mg/dL 700 - 1600 mg/dL IgA 240 mg/dL 70 - 400 mg/dL IgM 71 mg/dL 40 - 230 mg/dL MOST RECENT PRIOR SERUM ELECTROPHORESIS RESULTS: Date Beta Gamma Corwin Lambda K/L IgG IgA IgM MSp1 MSp2 MSp3 g/dl g/dl mg/l mg/l mg/dl mg/dl mg/dl g/dl g/dl g/dl INTERPRETATION: Protein Electrophoresis: -No M-spike detected Immunofixation: -No monoclonal gammopathy By his/her signature below, the senior physician certifies that he/she personally reviewed all the laboratory data of the described specimen(s) and rendered or confirmed the diagnosis(es) related thereto. Final Diagnosis by Jacob Jacobson M.D., Ph.D., Electronically signed on November at 05:53:38AM us Igor Mcmillan MD PATHOLOGY ORDERABLES Final Resul t Performing Organization Address City/State/[facility] Co de Phone Number [facility] [address] [place] [phone] from Last 3 Months Insurance [place] PART A [place] [id number] [facility] MEDICARE SUPPLEMENT MEDICARE PART A & B [facility] MEDICARE [place] [address] [place] [address] MEDICARE SUPPLEMENT [facility] MEDICARE SUPPLEMENT MEDICARE PART A & B [facility] MEDICARE SUPPLEMENT MEDICARE PART A & B [facility] MEDICARE SUPPLEMENT MEDICARE PART A & B [facility] MEDICARE SUPPLEMENT [facility] MEDICARE SUPPLEMENT MEDICARE PART A & B [facility] MEDICARE SUPPLEMENT [employer] Care Teams Mini Baccarat Dealer Relationship Specialty Start Date End Date Terry Edgar MD [address] [place] [phone] PCP - General Internal Medicine 11/16/24 Additional Source Comments The information contained in this document represents components of the legal health record. It is not the complete legal health record.[facility]
--- OUTSIDE RECORDS SUMMARY | 2025-01-31 10:43 | XMS_ITS | Encounter Summary ---
Author Organization [facility] Address [address] [place] [address] [place] [phone] Phone Care Team Providers Care Global Lead Name Role Phone Radu Stoll DO Primary Care Provider [phone] Radu Stoll DO Primary Care Provider [phone] Terry Edgar MD Primary Care Provider Encounter Details Date Type Department Care Team (Late st Contact Info) Description 04/12/2019 Procedure Pass OR Admitting Dept - [facility] Department [address] [place] [address] Social History Tobacco Use Types Packs/Day Years Used Date Smoking Tobacco: Former Cigarettes 0.5 20 1 968 - 1988 Smokeless Tobacco: Never Alcohol Use Standard Drinks/Week Comments Yes 0 (1 standard drink = 0.6 oz pur e alcohol) 1-2/week Comments Unknown Sex and Gender Information Value Date Recorded Sex Assigned at Female 11/16/2024 9:14 AM EDT Legal Sex Female 6:16 PM EST Gender Identity Female 11/16/2024 9:14 AM EDT Sexual Orientation Straight 11/16/2024 9: 14 AM EDT documented as of this encounter Plan of Treatment Upcoming Encounters Date Type Department Care Team (Latest Contact Info) Description 02/03/2025 Procedure Pass [facility] Electrophysiology Lab [address] [place] [address] 02/03/2025 10:45 AM EDT Hospital Encounter [facility] Electrophysiology Lab [address] [place] [address] Houston Mcfadden MD [address] [place] [phone] [email or web address] 02/03/2025 10:45 AM EDT - 02/03/2025 1:30 PM EDT Surgery [facility] Electrophysiology Lab [address] [place] [address] Houston Mcfadden MD [address] [place] [phone] [email or web address] Pacemaker Permanent Upgrade, to ICD Bi-Ventricular (BiV) 09/18/2025 2:00 PM EDT Office Visit [facility] [address] [place] [phone] Carmita Downing MD [address] [place] [phone] [email or web address] documented as of this encounter Visit Diagnoses Not on filedocumented in this encounter Care Teams Global Lead Relationship Specialty Start Date End Date Radu Stoll DO PCP - General Internal Medicine 10/27/18 09/07/24 Radu Stoll DO [address] [place] [address] PCP - General Internal Medicine 09/08/24 11/15/24 Terry Edgar MD [address] [place] [phone] PCP - General Internal Medicine 11/16/24 documented as of this encounter Additional Source Comments The information contained in this document represents components of the legal health record. It is not the complete legal health record.[facility]
--- OUTSIDE RECORDS SUMMARY | 2025-01-31 10:43 | XMS_ITS | Patient Health Record ---
Author Organization [facility] Address [address] [place] [address] Care Team Providers Care Slide Fastener Repairer Name Role Phone Radu Stoll Primary Care Provider Eron Curran Unavailable [phone] Allergies Allergen (clinical drug ingredient) Drug/Non Drug [...] Problem Status W/U Status Risk Notes Problem [id number] Gastroesophageal reflux disease, esophagitis presence not specified (K21.9) Active confirmed Problem 41822490 Hiatal hernia (K44.9) Active confirmed Problem 02427779 Diarrhea, unspecified type (R19.7) Active confirmed Problem [id number] Non-intractable vomiting without nausea, unspecified vomiting type (R11.11) Active confirmed Problem 27014899 Esophageal dysph agia (R13.10) Active confirmed Problem 53960578 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 Plan Of [...] Insured Coverage Start Date Coverage End Date [facility] [address] [place] [address] [id number] SCARLET OSVALDO Self - patient is the insured Medical (General) History Medical History History ICD Code Melanoma-on her chest--1998 Denies [place],DM,CVA,Lung disease,renal dise ase Myotonic Dystrophy--hands, 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--- she has a neurologist in [place], [place] GERD Reports a negative colonoscopy at age 48 at [place] Negative screening colonosco py in 07/2017 except for some mild sigmoid diverticulosis and small internal hemorrhoids 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
--- OUTSIDE RECORDS SUMMARY | 2025-01-31 10:43 | XMS_ITS | Clinical Summary ---
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 Assessment & Plan (06/15/2024 3:38 PM EST): Pt with new cardio LVEF 30-35% by outside record from [place]. Nuclear stress without signs of ischemia . [...] bundle branch block (LBBB) 02/08/2019 Atrial fibrillation ([facility]/HCC V24, [facility]/HCC V28) 0 02/15/2018 Overview (06/15/2024): sees cardio [...] next. F/U 4 weeks Myotonic muscular dystrophy ([facility]/HCC V24, CMS/HC C V28) 07/13/2009 Encounters Date Type Department Care Team Description 12/27/2024 12:00 PM EDT Ancillary Procedure [facility] [address] [place] [address] 12/13/2024 Telephone [facility] [address] [place] [address] Terry Metcalf MD 11/21/2024 Telephone [facility] [address] [place] [address] Terry Metcalf MD 11/21/2024 Telephone [facility] [address] [place] [address] Terry Metcalf MD 11/18/2024 Telephone [facility] Cardiology [facility] [address] [place] [address] Yousif Smith MD 11/08/2024 2:40 PM EDT Office Visit [facility] [address] [place] [address] Gracy Lira PA Atrial fibrillation, unspecified type (CMS/HCC V24, CMS/HCC V28) (Primary Dx); Pacemaker; Other specified hypotension; Left bundle branch block (LBBB); Congestive heart failure, NYHA class 1, unspecified congestive heart failure type (CMS/HCC V24, CMS/HCC V28); Dilated cardiomyopathy (CMS/HCC V24, CMS/HCC V28); NOA (obstructive sleep apnea); SOB (shortness of breath) 11/08/2024 Telephone [facility] [address] [place] [address] Gracy Lira PA 11/01/2024 8:00 AM EDT Ancillary Procedure [facility] [address] [place] [address] Encounter for adjustment or management of cardiac device from Last 3 Months Medical History Medical [...] Description 02/14/2025 2:40 PM EDT Office Visit [facility] Cardiology [facility] [address] [place] [address] Gracy Lira PA [address] [place] [address] [place] [address] 02/23/2025 1:10 PM EDT Office Visit [facility] [address] [place] [address] Gracy Lira PA [address] [place] [address] [place] [address] 11/01/2025 9:30 AM EDT Ancillary Procedure [facility] Card[facility] [address] [place] [address] Health Maintenance Due Date Last Done Comments [...] this topic Medical Devices Implanted Type Area Pcu Rn Device Identifier Shelf Expiration Date Model / Serial / Lot Medt-Card [place] Xt Dr Brooks [id number] Implanted: (Quantity not on file) Cardiac Pacemaker [employer] - CARDIAC RHYTH-CRDM TJ XT DR BROOKS [id number] / [id number] / Medt-Card Tj Xt Dr Brooks [id number] Implanted: (Quantity not on file) Cardiac Pacemaker [employer] - CARDIAC RHYTH-CRDM TJ XT DR BROOKS / [id number] / Procedures Procedure Name Priority Date/Time Associated [...] reduced ejection fraction) (CMS/HCC V24, CMS/HCC V28) TERRY DEXA AXIAL SKELETON Routine 01/02/2020 9:45 AM EDT Encounter for screening for osteoporosis from Last 3 Months or Most Recently Relevant to Health Maintenance Results * Cardiac device check - Remote- [facility] (12/27/2024 11:55 AM EDT) Date Time Interrogation Session [id number] CV DEVICE CHECK Type Interrogation Session Remote CV DEVICE CHECK Implantable Pulse Generator Pcu Rn MDT CV DEVICE CHECK Implantable Pulse Generator Type IPG CV DEVICE CHECK Implantable Pulse Generator Model Tj XT DR BROOKS [id number] CV DEVICE CHECK Implantable Pulse Generator Serial Number [id number] CV DEVICE CHECK Implantable Pulse Generator Implant Date 20241013 CV DEVICE CHECK Battery Remaining Longevity 116.0 CV DEVICE CHECK Battery Voltage 3.180 CV D EVICE CHECK Battery REAL ESTATE UNDERWRITER Trigger 2.625 CV DEVICE CHECK Battery Status Middle of Service CV DEVICE CHECK John Statistic RA Percent Paced 45.48 CV DEVICE CHECK John Statistic RV Percent Paced 93.21 CV DEVICE CHECK Atrial Tachy Statistic AT/AF [place] Percent 0.20 CV DEVICE CHECK Lead Channel [...] OVERSENSING Gracy CARLTON CV IMPLANTABLE CARDIAC DEVICE IN OCEDURES Final Result * ECG 12 lead (11/08/2024 4:46 PM EDT) Ventricular Rate ECG 74 BPM GEMUSE Atrial Rate 74 BPM GEMUSE QRS Duration 188 ms GEMUSE Q-T Interval 470 ms GEMUSE QTc 521 ms GEMUSE R [place] 144 degrees GEMUSE T [place] 62 degrees GEMUSE ECG Interpretation AV dual-paced rhythm When compared with ECG of 27-SEP-2024 15:18, Electronic ventricular pacemaker has replaced Sinus rhythm Confirmed by HENRRY SMITH ([id number]) on 11/10/2024 12:38:12 PM GEMUSE 11/08/2024 2:43 PM EDT 11/10/2024 12:38 PM EDT us Gracy CARLTON ECG ORDERABLES Edited Result - Final GEMUSE * CARDIAC DEVICE CHECK- [facility] (11/01/2024 8:43 AM EDT) Date Time Interrogation Session [id number] CV DEVICE CHECK Implantable Pulse Generator Pcu Rn MDT CV DEVICE CHECK Implantable Pulse Generator Type IPG CV DEVICE CHECK Implantable Pulse Generator Model Tj XT DR MRI CV DEVICE CHECK Implantable Pulse Generator Serial Number [id number] CV DEVICE CHECK Implantable Pulse Generator Implant Date 20241013 CV DEVICE CHECK Battery Status Beginning of Service CV DEVICE CHECK John Statistic RA Percent Paced 33.10 CV DEVICE CHECK John Statistic RV Percent Paced 93.60 CV DEVICE CHECK Atrial Tachy Statistic AT/AF [place] Percent 0.10 CV DEVICE CHECK Lead Channel [...] thresholds reviewed and tested * Presenting Rhythm: -AUTO BRAKE TECHNICIAN 75 bpm * Underlying Rhythm: -VS 70s [...] thresholds reviewed and tested * Presenting Rhythm: -AUTO BRAKE TECHNICIAN 75 bpm * Underlying Rhythm: -VS 70s [...] DIAC DEVICE PROCEDURES Final Result * (ABNORMAL) Comprehensive metabolic panel (10/20/2024 11:52 [...] - 10/21/2024 9:07 AM EDT Performed at: - [facility] [id number] Hyperbaric Technician: Ximena Venegas MD, Phone: [phone] us Gracy CARLTON LAB BLOOD ORDERABLES Final Resul t [facility] 1 * TERRY DEXA AXIAL SKELETON (01/02/2020 9:45 AM EDT) Anatomical Region Laterality Modality Mammography 01/02/2020 8:53 AM EDT Narrative 01/02/2020 9:45 AM EDT [facility] Diagnostic Imaging Department [address] [place] [address] Patient: TRINIDAD EVANGELISTA /Age/Sex: 1960 - 59 - F Unit#: [id number] Location/Status: SPDIMAM/REG CLI Mnemonic/Ordering Site: MAMDEXAAX/SPMAM Ordering Physician: NICKY NORTH MD Terry Dexa [...] probability of hip fracture of 0.8%. Code 27007 Dictating Physician: ELO ADAIR MD Electronically Signed by: ELO ADAIR MD Dic Date/Time: 01/02/20943 Sign date/Time: 01/02/20944 Procedure Note Elo Adair MD - 05/21/2022 [facility] Diagnostic Imaging Department [address] [place] [address] Patient: TONJATRINIDADCATALINA Stapleton./Age/Sex: 1960 - 59 - F Unit#: [id number] Location/Status: [facility] CLI Mnemonic/Ordering Site: [facility] Ordering Physician: NICKY NORTH MD Terry Dexa [...] density of the femurs bilaterally is 0.984 gm/rb9cytzr is 98% of that of young normals [...] probability of hip fracture of 0.8%. Code 15471 Dictating Physician: ELO ADAIR MD Electronically Signed by: ELO ADAIR MD Dic Date/Time: 01/02/2044 Sign date/Time: 01/02/20944 Nicky North MD IMG BI PROCEDURES Final Result from Last 3 Months or Most Recently Relevant to Health Maintenance Insurance MEDICARE [facility] Advance Directives Documents on File Type Date Recorded Patient Family Worker Expl anation Health Care Decision (hx) 01/28/2021 [...] (hx) 01/26/2019 AD GANN DIRECTIVE Care Teams Bmw Service Technician Relationship Specialty Start Date End Date Terry Metcalf MD [address] [place] [address] PCP - General Internal Medicine 06/15/24
--- OUTSIDE RECORDS SUMMARY | 2025-01-31 10:43 | XMS_ITS | Clinical Summary ---
Author Organization [facility] Address [address] [place] [address] Care Team Providers Care Boot And Shoe Repairman Name Role Phone Unknown, Primary Care Provider [...] age to complete this topic Care Teams Boot And Shoe Repairman Relationship Specialty Start Date End Date Unknown, PCP - General 03/26/22
== END 2025-01-31 10:18 | disposition home or self-care (01) ==
LOC: HO.HPS 09:39
PROVIDERS: PCP Internal Medicine; Visit Provider Hospitalist
DX: G71.11 Myotonic muscular dystrophy (principal); I42.9 Cardiomyopathy, unspecified; G70.9 Myoneural disorder, unspecified; R06.09 Other forms of dyspnea; G47.33 Obstructive sleep apnea (adult) (pediatric); J98.4 Other disorders of lung
CPT/HCPCS: 99214; G2211

== ENCOUNTER → 2025-01-31 09:38 | Outpatient (BNVA) | payer MEDICARE, OTHER, SELFPAY | PROVIDERS: PCP Internal Medicine; Visit Provider Hospitalist | DX: G71.11 Myotonic muscular dystrophy (principal); G70.9 Myoneural disorder, unspecified; G47.33 Obstructive sleep apnea (adult) (pediatric); I42.9 Cardiomyopathy, unspecified; R06.09 Other forms of dyspnea; J98.4 Other disorders of lung | CPT/HCPCS: 99212 ==